=== PATIENT | female | born 1975 | race Caucasian/White ===

== ENCOUNTER 2017-07-01 18:18 | Emergency (ER) | payer OTHER, SELFPAY | END 2017-07-01 19:57 | disposition home or self-care (01) | PROVIDERS: Emergency Provider Nurse Practitioner; Family Provider Family Medicine Geriatric Medicine; Visit Provider Nurse Practitioner | DX: J06.9 Acute upper respiratory infection, unspecified (principal); Z79.899 Other long term (current) drug therapy; Z88.0 Allergy status to penicillin; Z88.2 Allergy status to sulfonamides | CPT/HCPCS: 87804; 99201 ==

== ENCOUNTER 2017-09-15 18:32 | Emergency (ER) | payer OTHER, SELFPAY ==
[2017-09-15 18:56] VITALS: BP 140/84; PULSE 79; RESP 20; TEMP 36.6; O2SAT 97; BMI 37.5
--- NOTE | 2017-09-15 19:50 | HMH.EDUTC ---
[facility] [place] Impression: Elbow pain, right Disposition: Home, Self-Care Condition on Discharge: Good Instructions: DI for Acute Pain -- Adult Additional Instructions: Increase fluids Rest Ice for 20 minutes remove heat for 20 minutes removed may repeat as necessary Tylenol or ibuprofen for pain Symptoms do not improve or get worse return or be seen in the ER Follow-up with primary care for further workup Prescriptions: predniSONE [Prednisone 20mg Tab] 20 mg PO DAILY 5 Days #10 tab Referrals: Deyanira Shafer [Primary Care Provider] - Time of Disposition: 19:57 (prednisone is p.o. twice daily 5 days) Medical Decision Making - Mike Inquiry Pt receiving controlled substance: No Vital Signs: 09/15/17 18:56 Temperature 97.9 F Temperature Source Temporal Artery Scan Pulse Rate [Brachial] 79 Respiratory Rate 20 Blood Pressure [Right Arm] 140/84 Blood Pressure Mean [Right Arm] 102 Blood Pressure Source [Right Arm] Automatic Cuff Blood Pressure Position [Right Arm] Sitting 02 Sat by Pulse Oximetry 97 Oxygen Delivery Method Room Air [facility] [place] - General Chief complaint: PAIN Stated complaint: r arm pain Time Seen by Provider: 09/15/17 19:50 Mode of Arrival: Ambulatory Source of Information: Patient Limitations: No Limitations Description of Symptoms (Recalled from Triage Doc. by RN): RT ARM PAIN, SWOLLEN AND TENDER X 1 WEEK HEENT Symptoms (Recalled from RN notes): No Resp Symptoms (Recalled from RN notes): No Skin Symptoms (Recalled from RN notes): No MS Symptoms (Recalled from RN notes): Yes Functional Status (Recalled from RN notes): NA - History of Present Illness Provider Complaint: 42-year-old female presents today for right elbow pain. Patient states had a massage pain increased. Patient states movement increases pain. And tender to palpate joint.denies fever - Related Data Home Medications Medication Instructions Recorded Confirmed Levothyroxine Sodium 150 mcg PO DAILY 09/15/17 09/15/17 [Levothyroxine 150mcg (0.15mg) Tab] Sertraline HCl [Zoloft 50mg tablet] 50 mg PO DAILY 09/15/17 09/15/17 raNITIdine HCl [Zantac] 150 mg PO DAILY 09/15/17 09/15/17 Previous Rx's Medication Instructions Recorded predniSONE [Prednisone 20mg 20 mg PO DAILY 5 Days #10 tab 09/15/17 Tab] Allergies Allergy/AdvReac Type Severity Reaction Status Date / Time Penicillins Allergy Unknown RASH/DIFFICULTY Unverified 06/24/17 14:28 BREATHING Sulfa (Sulfonamide Allergy Unknown RASH/DIFFICULTY Unverified 06/24/17 14:28 Antibiotics) BREATHING - Worker's Comp Is this a Worker's Comp case?: No H History I have reviewed the patient's past medical history: Yes - Social History Alcohol Intake: never - Psychiatric History Expresses thoughts of harming self/others: None Suicide Plan Description: No Plan ROS Obtained: Yes All systems reviewed & no additional complaints - Constitutional Constitutional: Reports system reviewed and no additional complaints, except as docu, Denies chills, Denies fever(s), Denies weakness - Eyes Eyes: Reports system reviewed and no additional complaints, except as docu - ENT Ears, Nose, Mouth, and Throat: Reports system reviewed and no additional complaints, except as docu - Cardiovascular Cardiovascular: Reports system reviewed and no additional complaints, except as docu - Respiratory Respiratory: Yes system reviewed and no additional complaints, except as docu - Gastrointestinal Gastrointestingal: Reports: system reviewed and no additional complaints, except as docu - Musculoskeletal Musculoskeletal: Reports system reviewed and no additional complaints, except as docu, Reports joint pain, Reports limited range of motion - Integumentary/Breasts Skin/Breast: Reports system reviewed and no additional complaints, except as docu - Neurologic Neurologic: Reports system reviewed and no additional complaints, except as doc
--- NOTE | 2017-09-15 19:53 | ED_ITS ---
[facility] Disposition Clinical Impression: Elbow pain, right Disposition: Home, Self-Care Condition on Discharge: Good Instructions: DI for Acute Pain -- Adult Additional Instructions: Increase fluids Rest Ice for 20 minutes remove heat for 20 minutes removed may repeat as necessary Tylenol or ibuprofen for pain Symptoms do not improve or get worse return or be seen in the ER Follow-up with primary care for further workup Prescriptions: predniSONE [Prednisone 20mg Tab] 20 mg PO DAILY 5 Days #10 tab Referrals: Deyanira Shafer [Primary Care Provider] - Time of Disposition: 19:57 (prednisone is p.o. twice daily 5 days) Medical Decision Making - Mike Inquiry Pt receiving controlled substance: No Vital Signs: 09/15/17 18:56 Temperature 97.9 F Temperature Source Temporal Artery Scan Pulse Rate [Brachial] 79 Respiratory Rate 20 Blood Pressure [Right Arm] 140/84 Blood Pressure Mean [Right Arm] 102 Blood Pressure Source [Right Arm] Automatic Cuff Blood Pressure Position [Right Arm] Sitting 02 Sat by Pulse Oximetry 97 Oxygen Delivery Method Room Air [facility] HPI - General Chief complaint: PAIN Stated complaint: r arm pain Time Seen by Provider: 09/15/17 19:50 Mode of Arrival: Ambulatory Source of Information: Patient Limitations: No Limitations Description of Symptoms (Recalled from Triage Doc. by RN): RT ARM PAIN, SWOLLEN AND TENDER X 1 WEEK HEENT Symptoms (Recalled from RN notes): No Resp Symptoms (Recalled from RN notes): No Skin Symptoms (Recalled from RN notes): No MS Symptoms (Recalled from RN notes): Yes Functional Status (Recalled from RN notes): NA - History of Present Illness Provider Complaint: 42-year-old female presents today for right elbow pain. Patient states had a massage pain increased. Patient states movement increases pain. And tender to palpate joint.denies fever - Related Data Home Medications Medication Instructions Recorded Confirmed Levothyroxine Sodium 150 mcg PO DAILY 09/15/17 09/15/17 [Levothyroxine 150mcg (0.15mg) Tab] Sertraline HCl [Zoloft 50mg tablet] 50 mg PO DAILY 09/15/17 09/15/17 raNITIdine HCl [Zantac] 150 mg PO DAILY 09/15/17 09/15/17 Previous Rx's Medication Instructions Recorded predniSONE [Prednisone 20mg 20 mg PO DAILY 5 Days #10 tab 09/15/17 Tab] Allergies Allergy/AdvReac Type Severity Reaction Status Date / Time Penicillins Allergy Unknown RASH/DIFFICULTY Unverified 06/24/17 14:28 BREATHING Sulfa (Sulfonamide Allergy Unknown RASH/DIFFICULTY Unverified 06/24/17 14:28 Antibiotics) BREATHING - Worker's Comp Is this a Worker's Comp case?: No [facility] History I have reviewed the patient's past medical history: Yes - Social History Alcohol Intake: never - Psychiatric History Expresses thoughts of harming self/others: None Suicide Plan Description: No Plan ROS Obtained: Yes All systems reviewed & no additional complaints - Constitutional Constitutional: Reports system reviewed and no additional complaints, except as docu, Denies chills, Denies fever(s), Denies weakness - Eyes Eyes: Reports system reviewed and no additional complaints, except as docu - ENT Ears, Nose, Mouth, and Throat: Reports system reviewed and no additional complaints, except as docu
[2017-09-15 19:57] VITALS: BP 140/84; PULSE 79; RESP 20; TEMP 36.6; O2SAT 97
== END 2017-09-15 19:58 | disposition home or self-care (01) ==
PROVIDERS: Emergency Provider Nurse Practitioner Family; Family Provider Family Medicine Geriatric Medicine; PCP Family Medicine Geriatric Medicine
DX: M25.521 Pain in right elbow (principal)
CPT/HCPCS: 99202

== ENCOUNTER → 2018-04-09 10:20 | Outpatient (CLI) | payer OTHER, SELFPAY ==
[2018-04-09 11:56] LABS: Basophils % 0.5 % (0.1-2.0); Eosinophils # 0.1 K/mm3 (0.0-0.4); Eosinophils % 1.6 % (0.1-12.0); Hematocrit 40.4 % (37.0-47.0); Hemoglobin 13.2 g/dL (12.2-16.2); Lymphocytes # 2.6 K/mm3 (0.7-4.5); Mean Corpuscular HGB Conc 32.8 g/dL (31.8-35.4); Mean Corpuscular Hemoglobin 26.9 pg (27.0-31.2); Mean Corpuscular Volume 82.1 fl (81-99); Mean Platelet Volume 6.7 fl (7.4-10.4); Monocytes # 0.3 K/mm3 (0.1-1.0); Monocytes % 3.3 % (1.7-9.3); Neutrophils # 5.1 K/mm3 (1.8-7.8); Neutrophils % 62.7 % (37.0-80.0); Platelet Count 354 K/mm3 (142-424); Red Blood Count 4.92 M/mm3 (4.20-5.40); White Blood Count 8.2 K/mm3 (4.8-10.8)
[2018-04-09 12:26] LABS: Alanine Aminotransferase 31 U/L (12-78); Albumin Level 3.5 gm/dL (3.4-5.0); Albumin/Globulin Ratio 1.1 (1.1-1.8); Alkaline Phosphatase 109 U/L (46-116); Anion Gap 12.2 mEq/L (5-15); Aspartate Amino Transferase 14 U/L (15-37); Bilirubin,Total 0.3 mg/dL (0.2-1.0); Blood Urea Nitrogen 7 mg/dL (7-18); Calcium 8.8 mg/dL (8.5-10.1); Carbon Dioxide 29 mmol/L (21.0-32.0); Chloride 104 mmol/L (98-107); Cholesterol 158 mg/dL (140-200); Creatinine,Serum 0.59 mg/dL (0.55-1.02); Estimated Glomerular Filt Rate 111 ml/min (>60); Ferritin 47 ng/mL (8-388); Free Thyroxine Index 3.9 ug/dL (5.93-13.13); GFR (African American) 135 ML/MIN (>60); Globulin 3.3 gm/dl (1.3-3.2); Glucose 99 mg/dL (74-106); HDL Cholesterol 40 mg/dL (29-89); LDL Cholesterol 88 mg/dL (0-130); Potassium 4.2 mmoL/L (3.5-5.1); Sodium 141 mmol/L (136-145); T4 (Thyroxine) 11.9 ug/dl (4.7-13.3); Thyroid Stimulating Hormone 0.76 uIU/ml (0.358-3.740); Total Protein,Serum 6.8 gm/dL (6.4-8.2); Triglycerides 152 mg/dL (30-200); Triiodothryronine (T3) Uptake 33 % (31-39); VLDL Cholesterol 30 mg/dL (0-40)
[2018-04-09 17:15] LABS: Erythrocyte Sedimentation Rate 20 mm/hr (0-20)
[2018-04-10 08:28] LABS: Iron 56 ug/dL (27-159); UIBC 295 ug/dL (131-425)
[2018-04-10 17:28] LABS: Antinuclear Antibodies, IFA Negative (.); Iron Saturation 16 % (15-55); Vitamin B12 360 pg/mL (232-1245); Vitamin D 25 Hydroxy 15.7 ng/mL (30.0-100.0)
== END ==
PROVIDERS: PCP Nurse Practitioner Family; Visit Provider Nurse Practitioner Family
DX: Z00.00 Encounter for general adult medical examination without abnormal findings (principal); R53.82 Chronic fatigue, unspecified; M25.50 Pain in unspecified joint; E03.9 Hypothyroidism, unspecified
CPT/HCPCS: 36415; 80053; 80061; 82607; 82652; 82728; 83540; 83550; 84436; 84443; 84479; 85025; 85651; 86038

== ENCOUNTER → 2018-04-23 16:54 | Outpatient (CLI) | payer OTHER, SELFPAY ==
--- NOTE | 2018-04-23 | MM_ITS ---
MM Dig screening mamm BI w/CAD ORDERING PHYSICIAN : Esme Samano PATIENT AGE: 43 years GENDER: Female COMPARISON: Bilateral mammogram May 2016, June left breast. INDICATION: ITS.REASON: SCREENING no hormones. No new complaints. Previous percutaneous needle biopsy left breast, deep inferior lateral left breast. Family history. Patient aunt with breast cancer postmenopausal TECHNIQUE: Standard CC on and MLO images were obtained. R2 CAD reviewed. FINDINGS: Moderate dense heterogeneous breast .., With mild asymmetry. Mammography slightly limited and breast of this character no significant new findings. No suspicious dominant mass nor suspicious calcifications either breast RIGHT BREAST stable :The heterogeneous pattern the right is similar to previous studies dating back to 2016. No discrete or significant new findings LEFT BREAST:No significant new findings. Follow-up in one year Areas of density previously seen appear stable. Specifically area labeled Y at the deep lateral left breast unchanged. 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 No additional new findings otherwise.. There are actually 2 small metallic markers at the lateral inferior left breast from previous procedures IMPRESSION: No suspicious nor significant appearing new findings.. Bilateral follow-up in one year recommended-. Annual follow-up Should be emphasized/encouraged Sites of Previous percutaneous needle biopsy left breast noted BI-RADS Category: 2 Benign Finding(s) RECOMMENDED FOLLOW-UP: 1YR 1 YEAR FOLLOW-UP (A letter has been sent to the patient regarding results of the study.)
== END ==
PROVIDERS: PCP Nurse Practitioner Family; Visit Provider Nurse Practitioner Family
DX: Z12.31 Encounter for screening mammogram for malignant neoplasm of breast (principal)
CPT/HCPCS: 77067

== ENCOUNTER → 2018-11-27 16:55 | Outpatient (CLI) | payer BC, SELFPAY ==
[2018-11-27 19:24] LABS: Alanine Aminotransferase 32 U/L (12-78); Albumin Level 3.6 gm/dL (3.4-5.0); Albumin/Globulin Ratio 1.1 (1.1-1.8); Alkaline Phosphatase 117 U/L (46-116); Anion Gap 13.9 mEq/L (5-15); Aspartate Amino Transferase 10 U/L (15-37); Bilirubin,Total 0.3 mg/dL (0.2-1.0); Blood Urea Nitrogen 12 mg/dL (7-18); Calcium 8.9 mg/dL (8.5-10.1); Carbon Dioxide 27 mmol/L (21.0-32.0); Chloride 104 mmol/L (98-107); Estimated Glomerular Filt Rate 91 ml/min (>60); Free Thyroxine Index 3.4 ug/dL (5.93-13.13); GFR (African American) 111 ML/MIN (>60); Globulin 3.2 gm/dl (1.3-3.2); Glucose 124 mg/dL (74-106); Potassium 3.9 mmoL/L (3.5-5.1); Sodium 141 mmol/L (136-145); T4 (Thyroxine) 11.2 ug/dl (4.7-13.3); Thyroid Stimulating Hormone 0.63 uIU/ml (0.358-3.740); Total Protein,Serum 6.8 gm/dL (6.4-8.2); Triiodothryronine (T3) Uptake 30 % (31-39)
== END ==
PROVIDERS: Visit Provider Nurse Practitioner Family
DX: E03.9 Hypothyroidism, unspecified (principal); E55.9 Vitamin D deficiency, unspecified
CPT/HCPCS: 36415; 80053; 82652; 84436; 84443; 84479

== ENCOUNTER → 2019-05-28 10:52 | Outpatient (CLI) | payer BC, SELFPAY ==
--- NOTE | 2019-05-28 10:53 | MR_ITS ---
PROCEDURE: MR SHOULDER LT WO CON CLINICAL INDICATION: evaluate for rotator cuff tear Fall with injury and pain with limited range of motion COMPARISON: XR SHOULDER LT MIN 2V from 05/08/2019 TECHNIQUE: Routine multiplanar multi echo sequences are performed without gadolinium enhancement. FINDINGS: There is subacromial stenosis with a low-lying acromion and a small spur along the inferior aspect of the distal chromium. There is mild hypertrophy of the acromioclavicular joint. The supraspinatus tendon is intact with some mild thickening distally and slight increase in T2 signal consistent with mild tendinopathy/tendinosis. The infraspinatus, subscapularis, and teres minor tendons are intact. Bicipital tendon is in place. There appears to be a SLAP tear of the anterior glenoid labrum. IMPRESSION: 1. SLAP tear of the anterior glenoid labrum suspected. This may be confirmed with direct or indirect MR arthrography if clinical findings are indeterminate. 2. No evidence of rotator cuff tear. 3. 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
== END ==
PROVIDERS: PCP Nurse Practitioner Family; Visit Provider Orthopaedic Surgery
DX: S49.92XA Unspecified injury of left shoulder and upper arm, initial encounter (principal)
CPT/HCPCS: 73221

== ENCOUNTER 2019-07-12 14:07 | Outpatient (RCR) | payer BC, SELFPAY ==
--- NOTE | 2019-07-12 15:01 | HMH.PTOPEV ---
PT Outpatient Evaluation Rehab PT Outpatient Evaluation Start: 07/12/19 14:42 Freq: Status: Active Protocol: Document 07/12/19 14:42 LENNOX (Rec: 07/12/19 15:01 LENNOX [id number]) Electronically Signed By Vic Dillon PT 07/12/19 14:42 Outpatient Therapy Subjective History Subjective History This is the initial Physical Therapy evaluation for Izzy Amato. Pt is a 44 y/o female referred to PT for c/o L shoulder pain. Pt reports ~ 2 months ago she fell in the kitchen. Pt does not remember if she tried to catch herself or just landed on LUE, bit had pain afterwards. Pt reports she had ortho visit and MRI which showed SLAP tear and RTC dysfxn. Chief Complaint Pain,Stiff,Weakness Symptom Type Ache,Throb,Sharp,Stabbing Symptoms Relieved By Rest/Positioning,Ice,OTC Meds Symptoms Aggravated By Physical Activity,Lifting Prior Functional Limitations None Current Functional Limitations Reaching,Lifting Symptom Description Constant but Variable Level of pain today (0-10) 5 Pain scale - at its best (0-10) 4 Pain scale - at its worst (0-10) 9 Shoulder/Elbow Eval Shoulder Objective Measurements Palpation Tenderness tenderness shoulder exam standard left tenderness over the bicipital tendon left shoulder exam standard tenderness over the SA bursa shoulder left exam standard Shoulder Palpation Findings Tenderness Shoulder ROM Left Shoulder ROM Limitations Muscle Weakness,Pain Shoulder Abduction Active Range of 85 Motion (degrees) Shoulder Flexion Active Range of Motion 90 (degrees) Query Text: Shoulder External Rotation Active Range 35 of Motion (degrees) pain with active ROM shoulder exam left standard pain with passive ROM shoulder exam left standard decreased ROM shoulder exam standard left Right full ROM shoulder exam standard right Shoulder MMT Left Anterior Deltoid Strength Grade 3- Fair- Shoulder Abduction Strength Grade 3- Fair- Shoulder Flexion Strength Grade 3- Fair- Shoulder External Rotation Strength 3- Fair- Grade Shoulder Strength Patient Testing Sitting Position Shoulder Special Tests impingement sign present shoulder exam left standard Shoulder Cross-Over Impingement Test Positive Left
== END 2019-07-12 14:10 | disposition home or self-care (01) ==
LOC: PT 14:07
PROVIDERS: PCP Nurse Practitioner Family; Visit Provider Orthopaedic Surgery
DX: M25.512 Pain in left shoulder (principal)
CPT/HCPCS: 97110; 97163

== ENCOUNTER → 2019-08-06 14:27 | Outpatient (CLI) | payer BC, SELFPAY ==
--- NOTE | 2019-08-06 14:37 | XR_ITS ---
PROCEDURE: XR CHEST 2V CLINICAL HISTORY: COUGH COMPARISON: CXR CHEST(2 VIEWS-NOT PORTABLE) from 04/16/2014 CXR CHEST(2 VIEWS-NOT PORTABLE) from 10/18/2014 CXR CHEST(2 VIEWS-NOT PORTABLE) from 02/10/[address] CHEST W/ CONTRAST from 04/28/2015 FINDINGS: The cardiomediastinal silhouette and pulmonary vascularity are within normal limits. The lungs are clear without infiltrates, suspicious nodules, or pleural effusions. No acute bony abnormalities. IMPRESSION: No acute findings. Dictated by: Emeterio Navarro MD 08/06/2019 17:04 Electronically signed by Emeterio Navarro MD in [place] 08/06/2019 17:04
--- NOTE | 2019-08-06 15:06 | ECG_ITS ---
APPROVED REPORT Exam: Resting ECG HR:91 bpm ECG Measurements Heart Rate 91 AXES NJ 138 P 55 QRSd 88 QRS 92 QT 358 T 58 QTc 440 <Conclusion> Normal sinus rhythm Rightward axis Abnormal ECG Electronically signed by : John Farrell, 08/06/2019 15:47:27
[2019-08-06 15:26] LABS: Basophils # 0.1 K/mm3 (0-0.2); Basophils % 0.7 % (0.1-2.0); Eosinophils # 0.4 K/mm3 (0.0-0.4); Eosinophils % 3.1 % (0.1-12.0); Hematocrit 40.5 % (37.0-47.0); Hemoglobin 12.9 g/dL (12.2-16.2); Lymphocytes % 34.4 % (10-50); Mean Corpuscular HGB Conc 31.8 g/dL (31.8-35.4); Mean Corpuscular Hemoglobin 26.5 pg (27.0-31.2); Mean Corpuscular Volume 83.4 fl (81-99); Monocytes # 0.4 K/mm3 (0.1-1.0); Neutrophils # 6.8 K/mm3 (1.8-7.8); Neutrophils % 58.8 % (37.0-80.0); Platelet Count 419 K/mm3 (142-424); Red Blood Count 4.86 M/mm3 (4.20-5.40); White Blood Count 11.6 K/mm3 (4.8-10.8)
[2019-08-06 19:40] LABS: Alanine Aminotransferase 35 U/L (12-78); Albumin Level 3.7 gm/dL (3.4-5.0); Albumin/Globulin Ratio 1.2 (1.1-1.8); Alkaline Phosphatase 108 U/L (46-116); Anion Gap 14.3 mEq/L (5-15); Aspartate Amino Transferase 20 U/L (15-37); Bilirubin,Total 0.2 mg/dL (0.2-1.0); Blood Urea Nitrogen 9 mg/dL (7-18); Calcium 8.7 mg/dL (8.5-10.1); Carbon Dioxide 29 mmol/L (21.0-32.0); Chloride 103 mmol/L (98-107); Creatinine,Serum 0.73 mg/dL (0.55-1.02); Estimated Glomerular Filt Rate 87 ml/min (>60); GFR (African American) 105 ML/MIN (>60); Glucose 93 mg/dL (74-106); Potassium 4.3 mmoL/L (3.5-5.1); Sodium 142 mmol/L (136-145); Total Protein,Serum 6.7 gm/dL (6.4-8.2)
== END ==
PROVIDERS: PCP Nurse Practitioner Family; Visit Provider Orthopaedic Surgery
DX: Z01.818 Encounter for other preprocedural examination (principal); M75.42 Impingement syndrome of left shoulder
CPT/HCPCS: 36415; 71046; 80053; 85025; 93005

== ENCOUNTER → 2019-08-11 12:51 | Outpatient (CLI) | payer BC, SELFPAY ==
--- NOTE | 2019-08-11 13:00 | MM_ITS ---
PROCEDURE: MM DIG SCREENING MAMM BI W/CAD CLINICAL INDICATION: SCREENING There is a history of breast cancer in the patient's aunt. There has been a previous biopsy left breast for benign disease. COMPARISON: NECKW CT SOFT TISSUE NECK W/CONTRAST from 08/24/2014 DMSB DIG MAMM-SCREEN PORSHA from 05/16/2016 DMDXUAVL DIG MAMM-DX UNI ADD VIEWS-LT from 06/03/2016 DMDXUL DIG MAMM-DX UNI-LT from 06/19/2016 SCBI MM Dig screening mamm BI w/CAD from 04/23/2018 TECHNIQUE: Standard CC and MLO images and 3D Tomosynthesis was obtained. R2 CAD reviewed. FINDINGS: Scattered fibroglandular densities are seen throughout both breasts. There is a biopsy clip inner quadrant left breast with a small density adjacent to the biopsy clip likely representing post biopsy scarring. There is a stable benign-appearing oval density just deep to the nipple left breast. There is a stable benign-appearing nodular density with smooth borders deep within the right breast inner quadrant. Ray images are helpful excluding any suspicious lesion in either breast. There are no suspicious microcalcifications. IMPRESSION: Moderate slightly heterogenic breast density with no suspicious lesions seen BI-RAD Category: 2 Benign Finding(s) FOLLOW-UP: 1YR 1 Year Follow-up (A letter has been sent to the patient regarding results of the study.) Dictated by: Dr. Jaden Traylor MD 08/12/2019 16:[address] Jaden Traylor MD in [place] 08/12/2019 16:32
== END ==
PROVIDERS: PCP Nurse Practitioner Family; Visit Provider Nurse Practitioner Family
DX: Z12.31 Encounter for screening mammogram for malignant neoplasm of breast (principal)
CPT/HCPCS: 77063; 77067

== ENCOUNTER → 2019-11-10 10:51 | Outpatient (CLI) | payer BC, SELFPAY ==
--- NOTE | 2019-11-10 10:55 | XR_ITS ---
PROCEDURE: XR SHOULDER LT MIN 2V CLINICAL INDICATION: sp LT shoulder sx, dos 08/16/2019 Follow-up surgery COMPARISON: XR SHOULDER LT MIN 2V from 05/08/2019 MR SHOULDER LT WO CON from 05/28/2019 FINDINGS: There has been osteotomy the distal aspect of the clavicle. There is good alignment. Lucency is present in the proximal aspect of the humerus consistent with bicipital transfer surgery. No acute fracture. IMPRESSION: Postsurgical changes Dictated by: Emeterio Navarro MD 11/10/2019 18:49 Electronically signed by Emeterio Navarro MD in [place] 11/10/2019 18:49
== END ==
PROVIDERS: PCP Nurse Practitioner Family; Visit Provider Orthopaedic Surgery
DX: Z09 Encounter for follow-up examination after completed treatment for conditions other than malignant neoplasm (principal); M25.512 Pain in left shoulder
CPT/HCPCS: 73030

== ENCOUNTER 2019-11-12 15:00 | Outpatient (RCR) | payer BC, SELFPAY ==
--- NOTE | 2019-10-25 08:44 | HMH.PTOPEV ---
PT Outpatient Evaluation Rehab PT Outpatient Evaluation Start: 10/25/19 08:12 Freq: Status: Active Protocol: Document 10/25/19 08:16 HOLLY (Rec: 10/25/19 08:44 HOLLY [id number]) Electronically Signed By Azeem Keith, PT 10/25/19 08:16 Outpatient Therapy Subjective History Subjective History Pt presents s/p L SH SAD, GH debridement, DCE, biceps tenodesis sx. on 08/16/19. Pt reports initial injury occurred d/t fall at home in Late . Pt reports L SH is progressing slowly w/ROM and strength, however, 'it's still very sore, especially in the front and on top'. Chief Complaint Pain,Stiff,Swelling,Weakness Symptom Type Ache,Sharp,Dull Symptoms Relieved By Rest/Positioning,Heat,Ice,OTC Meds Symptoms Aggravated By Physical Activity,Lifting Prior Functional Limitations Reaching,Lifting,Housework Current Functional Limitations Reaching,Lifting,Housework Symptom Description Constant but Variable Level of pain today (0-10) 5 Pain scale - at its best (0-10) 4 Pain scale - at its worst (0-10) 8 Shoulder/Elbow Eval Shoulder Objective Measurements Palpation Tenderness tenderness shoulder exam standard left tenderness over the bicipital tendon left shoulder exam standard tenderness over the SA bursa shoulder left exam standard Shoulder Palpation Findings Tenderness,Trigger Point, Muscle Guarding Shoulder Palpation Overall Comment 3/4 Posture Shoulder Posture Standing Position (L) Rounded,(R) Rounded Scapula Posture Sitting Position (L) Protracted,(R) Protracted Scapular Posture Standing Position (L) Protracted,(R) Protracted Flexibilty Deficits Upper Trapezius Muscle Length (L) Moderate Tightness Shoulder ROM Left Shoulder Abduction Active Range of 0-72 Motion (degrees) Shoulder Abduction Passive Range of 0-95 Motion (degrees) Shoulder Flexion Active Range of Motion 0-98 (degrees) Query Text: Shoulder Flexion Passive Range of Motion 0-100 (degrees) Shoulder External Rotation Passive Range 0-60 of Motion (degrees) Shoulder Internal Rotation Passive Range 0-70 of Motion (degrees) Shoulder MMT Lower Trapezius Strength Grade 4- Good- Middle Trapezius Strength Grade 4- Good- Upper Trapezius/Levator Scapulae 4 Good Shoulder Abduction Strength Grade 3- Fair- Shoulder Flexion Strength Grade 3- Fair- Shoulder External Rotation Strength 3+
== END 2019-11-12 15:05 | disposition home or self-care (01) ==
LOC: PT 15:00
PROVIDERS: PCP Nurse Practitioner Family; Visit Provider Orthopaedic Surgery
DX: M25.512 Pain in left shoulder (principal); M75.42 Impingement syndrome of left shoulder; S43.432D Superior glenoid labrum lesion of left shoulder, subsequent encounter
CPT/HCPCS: 97010; 97014; 97033; 97110; 97163; G0283

== ENCOUNTER → 2019-12-22 11:45 | Outpatient (CLI) | payer BC, SELFPAY ==
[2019-12-22 12:12] LABS: Basophils # 0.1 K/mm3 (0-0.2); Basophils % 0.4 % (0.1-2.0); Eosinophils # 0.2 K/mm3 (0.0-0.4); Eosinophils % 1.4 % (0.1-12.0); Hematocrit 39.1 % (37.0-47.0); Hemoglobin 13.6 g/dL (12.2-16.2); Lymphocytes # 3.2 K/mm3 (0.7-4.5); Lymphocytes % 29.2 % (10-50); Mean Corpuscular HGB Conc 34.8 g/dL (31.8-35.4); Mean Corpuscular Hemoglobin 28.3 pg (27.0-31.2); Mean Corpuscular Volume 81.4 fl (81-99); Mean Platelet Volume 7.2 fl (7.4-10.4); Monocytes # 0.3 K/mm3 (0.1-1.0); Monocytes % 2.7 % (1.7-9.3); Neutrophils # 7.3 K/mm3 (1.8-7.8); Neutrophils % 66.3 % (37.0-80.0); Platelet Count 371 K/mm3 (142-424); Red Cell Distribution Width 14.2 % (11.5-17.5)
[2019-12-22 13:24] LABS: Alanine Aminotransferase 22 U/L (12-78); Albumin Level 4.5 g/dl (3.5-5.0); Albumin/Globulin Ratio 1.5 (1.1-1.8); Alkaline Phosphatase 121 U/L (38-126); Anion Gap 14.3 mEq/L (5-15); Aspartate Amino Transferase 27 U/L (14-36); Bilirubin,Total 0.4 mg/dl (0.2-1.3); Blood Urea Nitrogen 8 mg/dl (7-17); Carbon Dioxide 30 mmol/L (22.0-30.0); Chloride 99 mmol/L (98-107); Estimated Glomerular Filt Rate 109 ml/min (>60); GFR (African American) 131 ML/MIN (>60); Glucose 118 mg/dl (74-100); Potassium 4.3 mmoL/L (3.5-5.1); Sodium 139 mmol/L (136-145); Total Protein,Serum 7.5 g/dl (6.3-8.2)
[2019-12-22 13:39] LABS: Free T4 (Free Thyroxine) 1.31 ng/dl (0.78-2.19)
[2019-12-22 13:53] LABS: Thyroid Stimulating Hormone 5.97 uIU/mL (0.465-4.68)
== END ==
PROVIDERS: Visit Provider Nurse Practitioner Family
DX: R53.82 Chronic fatigue, unspecified (principal); E03.9 Hypothyroidism, unspecified
CPT/HCPCS: 36415; 80053; 84439; 84443; 85025

== ENCOUNTER 2020-01-14 16:39 | Emergency (ER) | payer BC, SELFPAY ==
[2020-01-14 16:51] VITALS: BP 112/73; PULSE 111; RESP 16; TEMP 36.8; O2SAT 98; BMI 60.4
--- NOTE | 2020-01-14 17:12 | XR_ITS ---
PROCEDURE: XR SHOULDER LT MIN 2V CLINICAL INDICATION: PAIN COMPARISON: XR SHOULDER LT MIN 2V from 05/08/2019 MR SHOULDER LT WO CON from 05/28/2019 XR SHOULDER LT MIN 2V from 11/10/2019 FINDINGS: There are postsurgical changes present. There has been a prior osteotomy of the distal clavicle and there is a lucency in the proximal aspect of the humerus consistent with bicipital tendon transfer surgery. No acute fracture or dislocation is evident. There is some mild subacromial stenosis with some hypertrophic changes along the inferior aspect of the a chromium. IMPRESSION: Postsurgical changes with mild subacromial stenosis Dictated by: Emeterio Navarro MD 01/14/2020 17:35 Electronically signed by Emeterio Navarro MD in [place] 01/14/2020 17:35
[2020-01-14 17:38] VITALS: BP 112/73; PULSE 111; RESP 16; TEMP 36.8; O2SAT 98; BMI 60.5
--- NOTE | 2020-01-14 18:04 | HMH.EDUTC ---
[facility] [place] Disposition Clinical Impression: Shoulder pain Qualifiers: Chronicity: unspecified Laterality: left Qualified Code(s): M25.512 - Pain in left shoulder Disposition: Home, Self-Care Condition on Discharge: Good Instructions: DI for Chronic Pain -- Adult, Nabumetone, How to Use a Sling, How To Perform RICE (Rest, Ice, Compress, Elevate) Additional Instructions: *RICE, Rest the extremity, Ice 15-20 minutes 3-4 times daily, Compress- wear the carter wrap as discussed as much as possible to help reduce swelling and pain, Elevate the extremity when at rest *Carter wrap is for support and help control swelling, use it except in the shower. Be sure that is not to tight but not to loose either *Elevate when resting *Nabumetone as prescribed for pain an inflammation. If need something more can take Tylenol in between doses of Ibuprofen to help Immediately follow up with your family doctor for new or worsening of symptoms, or no noticeable improvement over the next 3-5 days Prescriptions: Nabumetone 750 mg PO BID PRN 5 Days #10 tab PRN Reason: Moderate Pain Transmission Status: Pending to [facility] #[id number] Referrals: Esme Samano APRN [Primary Care Provider] - As needed Time of Disposition: 18:29 Medical Decision Making - Mike Inquiry Pt receiving controlled substance: No Mike was queried for this patient: No Vital Signs: 01/14/20 16:51 01/14/20 17:38 Temperature 98.2 F 98.2 F Temperature Source Oral Oral Pulse Rate [Right Brachial] 111 H 111 H Respiratory Rate 16 16 Blood Pressure [Right Arm] 112/73 112/73 Blood Pressure Mean [Right Arm] 86 86 Blood Pressure Source [Right Arm] Automatic Cuff Automatic Cuff Blood Pressure Position [Right Arm] Sitting Sitting 02 Sat by Pulse Oximetry 98 98 Oxygen Delivery Method Room Air Room Air - Radiology Data #1 Image(s): Shoulder Image Reviewed: Yes I have reviewed radiologist's interpretation Postsurgical changes with mild subacromial stenosis - Physician Consults Physician Consulted: Juan Time: 18:20 Reason -: Orthopedic Eval/Care Comment/Response: Spoke with Dr Martinez and he agreed with treatment SoluMedrol injection and Nabutometone bid and have her follow up in the clinic as scheduled [facility] [place] HPI - General Stated complaint: possible pulled L shoulder muscle 4 months post op Time Seen by Provider: 01/14/20 18:04 Mode of Arrival: Ambulatory Source of Information: Patient Limitations: No Limitations Description of Symptoms (Recalled from Triage Doc. by RN): PT advises she is 4 months post op from left shoulder surgery. Advises that a couple of days ago she started having some pain. She called Dr. Martinez and advised they were unable to see her until next week. Advises she thinks she needs a x-ray to make sure everything is ok. HEENT Symptoms (Recalled from RN notes): No Resp Symptoms (Recalled from RN notes): No Skin Symptoms (Recalled from RN notes): No MS Symptoms (Recalled from RN notes): Yes Functional Status (Recalled from RN notes): WNL - History of Present Illness Provider Complaint: Patient state that she had surgery about 4mths ago and had tendon repair on her left shoulder area by Dr Martinez State that for the last couple of days she has been having pain in her left shoulder States that she doesnt recall doing anything to hurt the shoulder she was helping her son cook when pain started shooting down the shoulder when she would move or raise it State that she called Dr Martinez office and they talked to him and told her to [employer] and call office today if no improvement State that she waas still having pain today so she called the office and talked to someone and they told her that she probably needed an xray and they made appointment for week - Related Data Home Medications Medication Instructions Recorded Confirmed levothyroxine 150 mcg tablet 175 mcg PO DAILY tab 12/29/17 12/22/19 sertraline 100 mg tablet 100 mg PO DAILY 05/25/19
[2020-01-14 18:36] VITALS: BP 112/73; PULSE 111; RESP 16; TEMP 36.8; O2SAT 98
== END 2020-01-14 18:40 | disposition home or self-care (01) ==
PROVIDERS: Emergency Provider Nurse Practitioner; PCP Nurse Practitioner Family
DX: M25.512 Pain in left shoulder (principal); F41.8 Other specified anxiety disorders; K21.9 Gastro-esophageal reflux disease without esophagitis; E78.5 Hyperlipidemia, unspecified; E03.9 Hypothyroidism, unspecified; Z90.49 Acquired absence of other specified parts of digestive tract; Z90.79 Acquired absence of other genital organ(s)
CPT/HCPCS: 73030; 96372; 99202

== ENCOUNTER → 2020-03-23 10:20 | Outpatient (CLI) | payer BC, SELFPAY ==
[2020-03-23 10:56] LABS: Basophils % 0.4 % (0.1-2.0); Eosinophils # 0.2 K/mm3 (0.0-0.4); Eosinophils % 1.7 % (0.1-12.0); Hematocrit 40.1 % (37.0-47.0); Hemoglobin 13.7 g/dL (12.2-16.2); Lymphocytes # 3.1 K/mm3 (0.7-4.5); Lymphocytes % 29.2 % (10-50); Mean Corpuscular HGB Conc 34.2 g/dL (31.8-35.4); Mean Corpuscular Hemoglobin 28.6 pg (27.0-31.2); Mean Corpuscular Volume 83.7 fl (81-99); Mean Platelet Volume 7.2 fl (7.4-10.4); Monocytes # 0.3 K/mm3 (0.1-1.0); Monocytes % 2.8 % (1.7-9.3); Neutrophils # 6.9 K/mm3 (1.8-7.8); Neutrophils % 65.8 % (37.0-80.0); Platelet Count 344 K/mm3 (142-424); Red Blood Count 4.79 M/mm3 (4.20-5.40); White Blood Count 10.5 K/mm3 (4.8-10.8)
[2020-03-23 11:26] LABS: Alanine Aminotransferase 18 U/L (12-78); Albumin Level 4.1 g/dl (3.5-5.0); Albumin/Globulin Ratio 1.5 (1.1-1.8); Alkaline Phosphatase 111 U/L (38-126); Anion Gap 14.3 mEq/L (5-15); Aspartate Amino Transferase 22 U/L (14-36); Bilirubin,Total 0.4 mg/dl (0.2-1.3); Blood Urea Nitrogen 10 mg/dl (7-17); Calcium 9.3 mg/dl (8.4-10.2); Carbon Dioxide 28 mmol/L (22.0-30.0); Chloride 101 mmol/L (98-107); Estimated Glomerular Filt Rate 108 ml/min (>60); GFR (African American) 131 ML/MIN (>60); Globulin 2.7 g/dL (1.3-3.2); Glucose 114 mg/dl (74-100); Potassium 4.3 mmoL/L (3.5-5.1); Sodium 139 mmol/L (136-145); Total Protein,Serum 6.8 g/dl (6.3-8.2)
[2020-03-23 11:43] LABS: 25-OH Vitamin D, Total 32.8 ng/mL (30-100)
[2020-03-23 11:44] LABS: Free T4 (Free Thyroxine) 0.71 ng/dl (0.78-2.19)
[2020-03-23 11:58] LABS: Thyroid Stimulating Hormone 9.99 uIU/mL (0.465-4.68)
== END ==
PROVIDERS: Visit Provider Nurse Practitioner Family
DX: E03.9 Hypothyroidism, unspecified (principal); E55.9 Vitamin D deficiency, unspecified
CPT/HCPCS: 36415; 80053; 82306; 84439; 84443; 85025

== ENCOUNTER → 2020-06-26 17:24 | Outpatient (CLI) | payer BC, SELFPAY ==
[2020-06-26 19:15] LABS: Free T4 (Free Thyroxine) 1.28 ng/dl (0.78-2.19)
== END ==
PROVIDERS: Visit Provider Nurse Practitioner Family
DX: E03.9 Hypothyroidism, unspecified (principal)
CPT/HCPCS: 36415; 84439; 84443

== ENCOUNTER 2020-10-14 17:50 | Emergency (ER) | payer BC, SELFPAY ==
[2020-10-14 18:26] VITALS: RESP 14; O2SAT 97; BMI 38.3
--- NOTE | 2020-10-14 18:26 | HMH.EDUTC ---
[facility] Disposition Clinical Impression: Bronchitis Disposition: Home, Self-Care Condition on Discharge: Good Instructions: Acute Bronchitis Additional Instructions: start antibiotic tomorrow. Be sure to complete entire prescription even if feeling better Tylenol and ibuprofen as needed for pain or fever Humidifier/vaporizer/hot steamy shower Follow-up with primary care this week. Follow-up immediately in the ER of the [facility] for new or worsening symptoms or no noticeable improvement over the next 48-72 hours. Stop smoking Inhaler every 4-6 hours as needed. Should help open airways improved cough, wheezing, shortness of breath Lilliam Monson will not cause drowsiness to use at bedtime to help stop cough so that she can get some sleep Prescriptions: Fluticasone Propionate [Flonase 50mcg nasal spray 16gm] 1 spr NS DAILY 14 Days #1 bottle Prescription Printed Azithromycin [Zithromax 250mg tab] 250 mg PO DIRECTED #6 tab Prescription Printed Referrals: Esme Samano APRN [Primary Care Provider] - Time of Disposition: 18:30 Medical Decision Making - Mike Inquiry Pt receiving controlled substance: No Orders (Tests/Meds): ORDERS Category Date Time Status Covid-19 Nasal PCR ([facility]) Routine Lab 10/14/20 18:15 Received [facility] HPI - General Chief complaint: Urgent Treatment Center Stated complaint: cough sore throat headache Time Seen by Provider: 10/14/20 18:26 Mode of Arrival: Ambulatory Source of Information: Patient Limitations: No Limitations - History of Present Illness Provider Complaint: 45 yr old fmeale presnets for cough, headache,wheezing,nasal congestion and sore throat for 4 days. family wants her covid tested - Related Data Home Medications Medication Instructions Recorded Confirmed levothyroxine 150 mcg tablet 175 mcg PO DAILY tab 12/29/17 03/21/20 sertraline 100 mg tablet 100 mg PO DAILY 05/25/19 03/21/20 Previous Rx's Medication Instructions Recorded Nabumetone 750 mg PO BID PRN 5 Days #10 tab 01/14/20 Azithromycin [Zithromax 250mg 250 mg PO DIRECTED #6 tab 10/14/20 tab] Fluticasone Propionate [Flonase 1 spr NS DAILY 14 Days #1 bottle 10/14/20 50mcg nasal spray 16gm] Allergies Allergy/AdvReac Type Severity Reaction Status Date / Time Penicillins Allergy Unknown RASH/DIFFICULTY Verified 03/21/20 11:07 BREATHING Sulfa (Sulfonamide Allergy Unknown RASH/DIFFICULTY Verified 03/21/20 11:07 Antibiotics) BREATHING [facility] History - Hepatitis A Screen Attestation statement:: This patient has been screened for Hepatitis A risk factors. I have reviewed the patient's past medical history: Yes Medical History: Reports:: Anxiety, Cancer, Depression, Gastroesophageal Reflux Disease(GERD), Hyperlipidemia Denies:: Diabetes Mellitus Type 1, Diabetes Mellitus Type 2, Hypertension, Internal Pacemaker, MRSA, Seizures Other Medical History: Reports: Hypothyroidism. Denies: Blood Transfusion Reaction Comment: morbid obesity Laterality Cases: Left: Arthroscopy Shoulder, Right: Arthroscopy Knee Other Surgeries: Yes: Cholecystectomy, , Hysterectomy-Total, Thyroidectomy, Tubal Ligation, Other. No: Pacemaker Amputation: No Fractures: No - Social History Smoking Status: Never smoker Alcohol Intake: never Substance Use Type: denies use Occupational Status: other Housing: house Household Members: spouse - Psychiatric History Pschychiatric History:: Reports:: Anxiety, Depression Family Hx:: No significant family history ROS Obtained: Yes Systems reviewed as appropriate & no additional complaints - Constitutional Constitutional: Reports system reviewed and no additional complaints, except as docu, Denies body ache, Denies chills, Denies fever(s) - Eyes Eyes: Reports system reviewed and no additional complaints, except as docu, Denies blurry vision - ENT Ears, Nose, Mouth, and Throat: Reports system reviewed and no additional complaints, except
[2020-10-14 18:29] LABS: UTC Strep Screen (Rapid) Negative (Negative)
[2020-10-14 18:30] LABS: UTC Influenza A Antigen Negative (Negative)
[2020-10-14 18:31] LABS: UTC Influenza B Antigen Negative (Negative)
[2020-10-14 18:35] VITALS: BP 147/99; PULSE 92; RESP 14; TEMP 37.3; O2SAT 97
== END 2020-10-14 18:36 | disposition home or self-care (01) ==
PROVIDERS: Emergency Provider Nurse Practitioner Family; PCP Nurse Practitioner Family
DX: Z20.822 Contact with and (suspected) exposure to COVID-19 (principal); J20.9 Acute bronchitis, unspecified; K21.9 Gastro-esophageal reflux disease without esophagitis; E78.5 Hyperlipidemia, unspecified; E03.9 Hypothyroidism, unspecified; Z88.0 Allergy status to penicillin; Z88.2 Allergy status to sulfonamides
CPT/HCPCS: 87804; 87880; 99202; G0463; U0003

== ENCOUNTER 2021-01-11 19:09 | Emergency (ER) | payer BC, SELFPAY ==
[2021-01-11 19:10] VITALS: BP 122/74; PULSE 86; RESP 18; TEMP 37.1; O2SAT 97; BMI 39.7
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
[2021-01-11 20:12] VITALS: BP 120/72; PULSE 82; RESP 18; TEMP 37.1; O2SAT 97
== END 2021-01-11 20:13 | disposition home or self-care (01) ==
PROVIDERS: Emergency Provider Family Medicine; PCP Nurse Practitioner Family
DX: S05.01XA Injury of conjunctiva and corneal abrasion without foreign body, right eye, initial encounter (principal); W50.0XXA Accidental hit or strike by another person, initial encounter; Y92.019 Unspecified place in single-family (private) house as the place of occurrence of the external cause; E03.9 Hypothyroidism, unspecified; E78.5 Hyperlipidemia, unspecified; F41.8 Other specified anxiety disorders; K21.9 Gastro-esophageal reflux disease without esophagitis; Z88.0 Allergy status to penicillin; Z88.2 Allergy status to sulfonamides
CPT/HCPCS: 99281

== ENCOUNTER → 2021-06-10 08:46 | Outpatient (CLI) | payer BC, SELFPAY ==
[2021-06-10 09:04] LABS: Basophils # 0.1 K/mm3 (0-0.2); Basophils % 0.7 % (0.1-2.0); Eosinophils # 0.2 K/mm3 (0.0-0.4); Eosinophils % 2.3 % (0.1-12.0); Hematocrit 40.6 % (37.0-47.0); Hemoglobin 13.3 g/dL (12.2-16.2); Lymphocytes # 3.5 K/mm3 (0.7-4.5); Lymphocytes % 37.9 % (10-50); Mean Corpuscular HGB Conc 32.8 g/dL (31.8-35.4); Mean Corpuscular Hemoglobin 27.6 pg (27.0-31.2); Mean Corpuscular Volume 84.2 fl (81-99); Mean Platelet Volume 6.8 fl (7.4-10.4); Monocytes # 0.3 K/mm3 (0.1-1.0); Monocytes % 3.3 % (1.7-9.3); Neutrophils # 5.2 K/mm3 (1.8-7.8); Neutrophils % 55.8 % (37.0-80.0); Platelet Count 385 K/mm3 (142-424); Red Blood Count 4.82 M/mm3 (4.20-5.40); Red Cell Distribution Width 13.3 % (11.5-17.5); White Blood Count 9.2 K/mm3 (4.8-10.8)
[2021-06-10 09:21] LABS: Hemoglobin A1C 5.6 % (4.0-6.0)
[2021-06-10 09:41] LABS: Alanine Aminotransferase 25 U/L (12-78); Albumin/Globulin Ratio 1.5 (1.1-1.8); Alkaline Phosphatase 110 U/L (38-126); Anion Gap 9.1 mEq/L (5-15); Aspartate Amino Transferase 27 U/L (14-36); Bilirubin,Total 0.3 mg/dl (0.2-1.3); Blood Urea Nitrogen 10 mg/dl (7-17); Calcium 9.6 mg/dl (8.4-10.2); Carbon Dioxide 29 mmol/L (22.0-30.0); Chloride 104 mmol/L (98-107); Chol/HDL Ratio 4.5 (1-3.5); Cholesterol 186 mg/dl (140-200); Estimated Glomerular Filt Rate 108 ml/min (>60); GFR (African American) 130 ML/MIN (>60); Globulin 2.7 g/dL (1.3-3.2); Glucose 112 mg/dl (74-100); HDL Cholesterol 41 mg/dl (40-60); Potassium 4.1 mmoL/L (3.5-5.1); Sodium 138 mmol/L (136-145); Total Protein,Serum 6.7 g/dl (6.3-8.2); Triglycerides 232 mg/dl (30-150); VLDL Cholesterol 46 mg/dL (0-40)
[2021-06-10 09:53] LABS: Direct LDL Cholesterol 104.44 mg/dL (100-129)
[2021-06-10 09:58] LABS: Free T4 (Free Thyroxine) 1.77 ng/dl (0.78-2.19)
[2021-06-10 09:59] LABS: 25-OH Vitamin D, Total 28.4 ng/mL (30-100)
[2021-06-10 10:12] LABS: Thyroid Stimulating Hormone < 0.02 uIU/mL (0.465-4.68)
[2021-06-10 10:30] LABS: Vitamin B12 281 pg/mL (239-931)
== END ==
PROVIDERS: Visit Provider Nurse Practitioner Family
DX: E03.9 Hypothyroidism, unspecified (principal); R73.01 Impaired fasting glucose; R53.81 Other malaise; E55.9 Vitamin D deficiency, unspecified; Z83.2 Family history of diseases of the blood and blood-forming organs and certain disorders involving the immune mechanism
CPT/HCPCS: 36415; 80053; 80061; 81241; 82306; 82607; 83036; 84439; 84443; 85025

== ENCOUNTER → 2021-08-23 12:05 | Outpatient (CLI) | payer BC, SELFPAY ==
--- NOTE | 2021-08-23 12:09 | XR_ITS ---
FINAL REPORT CLINICAL HISTORY: COVID OUTPATIENT. SOB COMPARISON: August 06, 2019 FINDINGS: The heart size is normal. The mediastinum is normal. There is no focal infiltrate or edema. There are no pleural effusions. There is no pneumothorax. There is no osseous abnormality. IMPRESSION: No acute cardiopulmonary process Reviewed, Interpreted and Dictated by Daniel Eli III, MD Transcribed by Maximo Fisher Authenticated by Daniel Eli III, MD on 08/23/2021 01:27:57 PM [facility]
[2021-08-23 12:50] LABS: Basophils # 0.1 K/mm3 (0-0.2); Basophils % 0.5 % (0.1-2.0); Eosinophils # 0.1 K/mm3 (0.0-0.4); Eosinophils % 1.2 % (0.1-12.0); Hematocrit 42.5 % (37.0-47.0); Hemoglobin 14.9 g/dL (12.2-16.2); Lymphocytes # 3.1 K/mm3 (0.7-4.5); Lymphocytes % 35.5 % (10-50); Mean Corpuscular Hemoglobin 28.4 pg (27.0-31.2); Mean Corpuscular Volume 81.1 fl (81-99); Monocytes # 0.2 K/mm3 (0.1-1.0); Monocytes % 2.3 % (1.7-9.3); Neutrophils # 5.3 K/mm3 (1.8-7.8); Neutrophils % 60.4 % (37.0-80.0); Platelet Count 451 K/mm3 (142-424); Red Blood Count 5.24 M/mm3 (4.20-5.40); Red Cell Distribution Width 13.6 % (11.5-17.5); White Blood Count 8.8 K/mm3 (4.8-10.8)
[2021-08-23 13:20] LABS: D-Dimer 0.46 ug/mL (0.0-0.5)
[2021-08-23 13:54] LABS: Chloride 102 mmol/L (98-107); Potassium 3.9 mmoL/L (3.5-5.1); Sodium 136 mmol/L (136-145)
[2021-08-23 13:57] LABS: Alanine Aminotransferase 26 U/L (12-78); Albumin Level 4.4 g/dl (3.5-5.0); Albumin/Globulin Ratio 1.6 (1.1-1.8); Alkaline Phosphatase 120 U/L (38-126); Anion Gap 13.9 mEq/L (5-15); Aspartate Amino Transferase 29 U/L (14-36); Bilirubin,Total 0.5 mg/dl (0.2-1.3); Blood Urea Nitrogen 7 mg/dl (7-17); Calcium 8.7 mg/dl (8.4-10.2); Carbon Dioxide 24 mmol/L (22.0-30.0); Estimated Glomerular Filt Rate 108 ml/min (>60); GFR (African American) 130 ML/MIN (>60); Globulin 2.8 g/dL (1.3-3.2); Glucose 117 mg/dl (74-100); Total Protein,Serum 7.2 g/dl (6.3-8.2)
== END ==
PROVIDERS: PCP Nurse Practitioner Family; Visit Provider Nurse Practitioner Family
DX: U07.1 COVID-19 (principal); R06.02 Shortness of breath
CPT/HCPCS: 36415; 71045; 80053; 85025; 85378

== ENCOUNTER → 2021-10-29 16:17 | Outpatient (CLI) | payer BC, SELFPAY ==
--- NOTE | 2021-10-29 16:27 | XR_ITS ---
PROCEDURE INFORMATION: Exam: XR Sacrum and Coccyx, 2 or More Views Exam date and time: 10/29/2021 4:41 PM Age: 46 years old Clinical indication: Pain; Lumbago; With sciatica; Bilateral; Additional info: Low back pain at multiple sites TECHNIQUE: Imaging protocol: XR of the sacrum and coccyx, 2 or more views. COMPARISON: ABDPELWO CT abdomen pelvis wo con 11/28/2017 11:39 PM FINDINGS: Mild osteoarthritis in the left hip joint, manifested predominantly by decreased joint space and small marginal osteophyte formation. No significant osteoarthritis to the right hip joint. Mild degenerative changes of the bilateral sacroiliac joints. No acutely displaced fracture, dislocation, or aggressive osseous lesion. No acute soft tissue findings. IMPRESSION: 1. Mild left hip osteoarthritis. 2. No acute skeletal pathology or other discrete findings to explain the patient's symptoms.
== END ==
LOC: RAD 16:20
PROVIDERS: PCP Nurse Practitioner Family; Visit Provider Nurse Practitioner Family
DX: M54.50 Low back pain, unspecified (principal); M53.3 Sacrococcygeal disorders, not elsewhere classified
CPT/HCPCS: 72220

== ENCOUNTER 2021-11-26 10:46 | Emergency (ER) | payer BC, SELFPAY ==
[2021-11-26 11:50] VITALS: BP 121/85; PULSE 84; RESP 18; TEMP 36.8; O2SAT 95; BMI 39.7
--- NOTE | 2021-11-26 12:34 | HMH.EDUTC ---
[facility] Disposition Clinical Impression: Bronchitis Sinusitis Qualifiers: Sinusitis location: unspecified location Chronicity: unspecified Qualified Code(s): J32.9 - Chronic sinusitis, unspecified Disposition: Home, Self-Care Condition on Discharge: Good Instructions: Sinusitis, DI for Sinusitis Additional Instructions: ? Start antibiotic today. Be sure to complete entire prescription even if feeling better ? Monitor temp. Tylenol every 4 hours as needed and / or ibuprofen every 6 hours as needed ( As long as your primary care physician has told you that it ok to take both. For fever/aches/pains ER if no less than 101 despite Tylenol or Motrin ? Humidifier/vaporizer or hot steamy shower *Tessalon Perles will not cause drowsiness but use at bedtime to help stop cough so that you may get some rest. *Start steroid today. Helps with inflammation therefore, cough and wheezing. Follow directions on the package. Reviewed side effects. Patient reports taking them before. Follow up IMMEDIATELY for new or worsening of symptoms OR no noticeable improvement over the next 48-72 hours. 911 immediately for any life threatening symptoms such as chest pain or difficulty breathing Prescriptions: Albuterol Sulfate [Proventil-HFA 90mcg/puff Inh] 1 - 2 puffs IH Q6HP PRN #1 each PRN Reason: Shortness Of Breath Transmission Status: Pending to [facility] Benzonatate [Benzonatate 100mg cap] 100 mg PO Q8HP PRN #15 cap PRN Reason: Cough Transmission Status: Pending to [facility] methylPREDNISolone [Medrol 4mg tab] 4 mg PO DIRECTED #21 tab Transmission Status: Pending to [facility] Azithromycin [Z-Benntet 250mg Tab] 250 mg PO DIRECTED #6 tab Transmission Status: Pending to [facility] Referrals: Esme Samano APRN [Primary Care Provider] - As needed Time of Disposition: 12:41 Medical Decision Making - Mike Inquiry Pt receiving controlled substance: No Mike was queried for this patient: No Vital Signs: 11/26/21 11:50 Temperature 98.3 F Temperature Source Oral Pulse Rate [Right Brachial] 84 Respiratory Rate 18 Blood Pressure [Right Arm] 121/85 Blood Pressure Mean [Right Arm] 97 Blood Pressure Source [Right Arm] Automatic Cuff Blood Pressure Position [Right Arm] Sitting 02 Sat by Pulse Oximetry 95 Oxygen Delivery Method Room Air [facility] HPI - General Stated complaint: cough, congestion, back pain, h/a Time Seen by Provider: 11/26/21 12:34 Mode of Arrival: Ambulatory Source of Information: Patient Limitations: No Limitations Description of Symptoms (Recalled from Triage Doc. by RN): PATIENT C/O CONGESTION, FEVER, HEADACHE, CHEST CONGESTION, AND PRODUCTIVE COUGH WITH THICK MUCOUS HEENT Symptoms (Recalled from RN notes): Yes Resp Symptoms (Recalled from RN notes): No Skin Symptoms (Recalled from RN notes): No MS Symptoms (Recalled from RN notes): No Functional Status (Recalled from RN notes): WNL - History of Present Illness Provider Complaint: Patient states that she has been sick for well over a week States that she has been having cough, sinus pain and pressure, productive cough at times, and headache States that pressure behind her eyes has got worse over the last week States that she seen her PCP last week and thought it was a viral infection but she has continued to feel worse so she came in today - Related Data Home Medications Medication Instructions Recorded Confirmed Levothyroxine Sodium 175 mcg PO DAILY 11/26/21 11/26/21 [Levothyroxine 175mcg (0.175mg) Tab] Vortioxetine Hydrobromide 20 mg PO DAILY 11/26/21 11/26/21 [Trintellix] Previous Rx's Medication Instructions Recorded Albuterol Sulfate [Proventil-HFA 1 - 2 puffs IH Q6HP PRN #1 each 11/26/21 90mcg/puff Inh] Azithromycin [Z-Bennett 250mg Tab] 250 mg PO DIRECTED #6 tab 11/26/21 Benzonatate [Benzonatate 100mg 100 mg PO Q8HP PRN #15 cap 11/26/21 cap
[2021-11-26 12:45] VITALS: BP 121/85; PULSE 84; RESP 18; TEMP 36.8; O2SAT 95
== END 2021-11-26 12:55 | disposition home or self-care (01) ==
PROVIDERS: Emergency Provider Nurse Practitioner; PCP Nurse Practitioner Family
DX: J32.9 Chronic sinusitis, unspecified (principal); J20.9 Acute bronchitis, unspecified; F41.8 Other specified anxiety disorders; K21.9 Gastro-esophageal reflux disease without esophagitis; E78.5 Hyperlipidemia, unspecified
CPT/HCPCS: 99212; G0463

== ENCOUNTER 2021-12-07 14:30 | Outpatient (RCR) | payer BC, SELFPAY ==
--- NOTE | 2021-11-05 09:38 | HMH.PTOPEV ---
PT Outpatient Evaluation Rehab PT Outpatient Evaluation Start: 11/05/21 09:21 Freq: Status: Active Protocol: Document 11/05/21 09:24 HOLLY (Rec: 11/05/21 09:38 HOLLY [id number]) Electronically Signed By Azeem Keith, PT 11/05/21 09:24 Outpatient Therapy Subjective History Subjective History Pt reports h/o chronic LBP for ~10 yrs, excerbation over the last ~3-4weeks. Pt reports right sided LBP, progressed to RLE radicular s/s from hip to knee. Pt reports walking and stretching 'used to help, but it's not helping this time'. Chief Complaint Pain,Stiff,Paresthesia Symptom Type Ache,Sharp,Dull,Numbness, Tingling Symptoms Relieved By Rest/Positioning,Heat Symptoms Aggravated By Standing,Twisting,Walking Prior Functional Limitations Lifting,Housework,Walking Current Functional Limitations Lifting,Housework,Standing, Walking Symptom Description Constant but Variable Level of pain today (0-10) 8 Pain scale - at its best (0-10) 5 Pain scale - at its worst (0-10) 10 Lumbopelvic Eval Posture Thoracic Spine Posture Standing Position Neutral Lumbar Spine Posture Standing Position Flattened Assistive device Assistive Devices None / NA Gait Observation General Gait Pattern Observation Antalgic Gait Palapation tenderness left lumbar spinal tenderness Yes: 3/4 paraspinal tenderness Yes: 2/4 buttock tenderness Yes: 2/4 Lumbar/Sacral Palpation Findings Tenderness,Trigger Point, Muscle Guarding right lumbar spinal tenderness Yes: 3/4 paraspinal tenderness Yes: 3/4 buttock tenderness Yes: 3/4 Lumbar/Sacral Palpation Findings Tenderness,Trigger Point, Muscle Guarding Accessory Movement L-spine Vertebrae Accessory Movements Central P/A [place] that Elicit Symptoms L2 bilateral L3 bilateral L4 bilateral L5 bilateral S1 bilateral Range of Motion Lumbar Spine Active Flexion Range of 0-15 Motion (degrees) Lumbar Spine Active Extension Range of 0-10 Motion (degrees) Left Lumbar Spine Lateral Flexion Active 0-10 Range of Motion (degrees) Right Lumbar Spine Lateral Flexion 0-10 Active Range of Motion (degrees) Lumbar Spine ROM Limitations Soft Tissue Tightness,Pain Manual Muscle Test Bilateral Knee Extension Strength Grade 5
== END 2021-12-07 14:35 | disposition home or self-care (01) ==
LOC: PT 14:30
PROVIDERS: PCP Nurse Practitioner Family; Visit Provider Nurse Practitioner Family
DX: M54.50 Low back pain, unspecified (principal)
CPT/HCPCS: 97010; 97014; 97035; 97110; 97140; 97163; G0283

== ENCOUNTER 2021-12-13 10:37 | Emergency (ER) | payer BC, SELFPAY ==
--- NOTE | 2021-12-13 10:44 | XR_ITS ---
FINAL REPORT CLINICAL HISTORY: fall FINDINGS: LEFT FOOT Three views of the left foot demonstrate no acute fracture or dislocation. The visualized joint spaces are normally aligned. The soft tissues are unremarkable. IMPRESSION: No acute bony abnormality. Reviewed, Interpreted and Dictated by Daniel Eli III, MD Transcribed by Maximo Fisher Authenticated and [facility]
--- NOTE | 2021-12-13 10:44 | XR_ITS ---
FINAL REPORT CLINICAL HISTORY: fall FINDINGS: LEFT ANKLE: Three views of the left ankle were obtained. There is no acute fracture or dislocation. The joint spaces and mortise are intact. There is no soft tissue abnormality. IMPRESSION: No acute bony abnormality. Reviewed, Interpreted and Dictated by Daniel Eli III, MD Transcribed by Maximo Fisher Authenticated and [facility]
--- NOTE | 2021-12-13 10:44 | XR_ITS ---
FINAL REPORT CLINICAL HISTORY: fall FINDINGS: Three views of the left knee reveal no evidence of fracture or dislocation. The bony alignment is normal. The joint spaces are preserved. There is no evidence of joint effusion. No localized soft tissue abnormality is seen. IMPRESSION: No acute abnormality identified. Reviewed, Interpreted and Dictated by Daniel Eli III, MD Transcribed by Maximo Fisher Authenticated and [facility]
[2021-12-13 10:50] VITALS: BP 115/72; PULSE 85; RESP 18; TEMP 36.5; O2SAT 95; BMI 39.7
--- NOTE | 2021-12-13 11:33 | HMH.EDUTC ---
[facility] Disposition Clinical Impression: Fall Qualifiers: Encounter type: initial encounter Qualified Code(s): W19.XXXA - Unspecified fall, initial encounter Left ankle sprain Qualifiers: Encounter type: initial encounter Involved ligament of ankle: unspecified ligament Qualified Code(s): S93.402A - Sprain of unspecified ligament of left ankle, initial encounter Sprain of left foot Qualifiers: Encounter type: initial encounter Qualified Code(s): S93.602A - Unspecified sprain of left foot, initial encounter Disposition: Home, Self-Care Condition on Discharge: Good Instructions: How to Use Crutches, Knee Sprain, Ankle Sprain, DI for Ankle Sprain, How to Take Care of Your Splint Additional Instructions: Rest the extremity, apply ice for 15 minutes as tolerated three or four times per day, Wear the cabrera wrap for compression, Elevate the extremity as tolerated while you are resting. Take ibuprofen for pain. I sent in a prescription to your pharmacy. Follow up with Dr. Martinez (orthopedics). Sometimes there can be fractures that don't show up well on the first set of x-rays. So, you should follow up if you continue to have symptoms. I put in a referral but you need to call his office and schedule an appointment. Follow up with your regular doctor. GO TO THE ER FOR ANY WORSENING SYMPTOMS Prescriptions: Ibuprofen [Ibuprofen 800mg Tablet] 800 mg PO Q8HP PRN #30 tab PRN Reason: Moderate Pain Transmission Status: Received by [facility] Referrals: Esme Samano APRN [Primary Care Provider] - Freddy Martinez MD [Staff Physician] - Time of Disposition: 12:27 Medical Decision Making - Medical Records Medical records reviewed: No: I reviewed the patient's medical records. - Mike Inquiry Pt receiving controlled substance: No Vital Signs: 12/13/21 10:50 12/13/21 12:31 Temperature 97.7 F 97.7 F Temperature Source Oral Pulse Rate 85 Pulse Rate [Left Radial] 85 Respiratory Rate 18 18 Blood Pressure 115/72 Blood Pressure [Right Arm] 115/72 Blood Pressure Mean [Right Arm] 86 02 Sat by Pulse Oximetry 95 - Radiology Data #1 Image(s): Ankle Image Reviewed: Yes I reviewed the patient's radiology image, Yes I have reviewed radiologist's interpretation Preliminary Findings: Normal/NAD, No Fracture Seen FINAL REPORT CLINICAL HISTORY: fall FINDINGS: LEFT ANKLE: Three views of the left ankle were obtained. There is no acute fracture or dislocation. The joint spaces and mortise are intact. There is no soft tissue abnormality. IMPRESSION: No acute bony abnormality. Reviewed, Interpreted and Dictated by Daniel Eli III, MD Transcribed by Maximo Fisher Authenticated and . [facility] Image(s): Foot/Toes Image Reviewed: Yes I reviewed the patient's radiology image, Yes I have reviewed radiologist's interpretation Preliminary Findings: Normal/NAD, No Fracture Seen FINAL REPORT CLINICAL HISTORY: fall FINDINGS: LEFT FOOT Three views of the left foot demonstrate no acute fracture or dislocation. The visualized joint spaces are normally aligned. The soft tissues are unremarkable. IMPRESSION: No acute bony abnormality. Reviewed, Interpreted and Dictated by Daniel Eli III, MD Transcribed by Maximo Fisher Authenticated and . [facility] Image(s): Knee Image Reviewed: Yes I reviewed the patient's radiology image, Yes I discussed the image results w/the radiologist, Yes I have reviewed radiologist's interpretation Preliminary Findings: Normal/NAD, No Fracture Seen FINAL REPORT CLINICAL HISTORY: fall FINDINGS: Three views of the left knee reveal no evidence of fracture or dislocation. The bony alignment is normal. The joint spaces are preserved. There is no evidence
[2021-12-13 12:31] VITALS: BP 115/72; PULSE 85; RESP 18; TEMP 36.5
== END 2021-12-13 12:32 | disposition home or self-care (01) ==
PROVIDERS: Emergency Provider Nurse Practitioner Family; PCP Nurse Practitioner Family
DX: S93.402A Sprain of unspecified ligament of left ankle, initial encounter (principal); S93.602A Unspecified sprain of left foot, initial encounter; E78.5 Hyperlipidemia, unspecified; K21.9 Gastro-esophageal reflux disease without esophagitis; E89.0 Postprocedural hypothyroidism; E66.01 Morbid (severe) obesity due to excess calories; F32.A Depression, unspecified; F41.9 Anxiety disorder, unspecified; Z79.51 Long term (current) use of inhaled steroids; Z79.52 Long term (current) use of systemic steroids; Z79.899 Other long term (current) drug therapy; Z88.0 Allergy status to penicillin; Z88.2 Allergy status to sulfonamides; Z85.9 Personal history of malignant neoplasm, unspecified; Z68.39 Body mass index [BMI] 39.0-39.9, adult; X50.1XXA Overexertion from prolonged static or awkward postures, initial encounter; W19.XXXA Unspecified fall, initial encounter
CPT/HCPCS: 73562; 73610; 73630; 99213; G0463

== ENCOUNTER 2022-01-04 12:18 | Emergency (ER) | payer BC, SELFPAY ==
--- NOTE | 2022-01-04 12:35 | HMH.EDUTC ---
[facility] [place] Clinical Impression: Radiculopathy due to lumbar intervertebral disc disorder Low back pain Qualifiers: Chronicity: unspecified Back pain laterality: bilateral Sciatica presence: with sciatica Sciatica laterality: sciatica of right side Qualified Code(s): M54.41 - Lumbago with sciatica, right side Sciatica Qualifiers: Laterality: right Qualified Code(s): M54.31 - Sciatica, right side Disposition: Home, Self-Care Condition on Discharge: Good Instructions: Lumbar Radiculopathy, DI for Lumbar Radiculopathy Additional Instructions: Go home and rest. Try to rest for the next several days. No heavy lifting. No twisting. Take the oral medications as directed. The muscle relaxer (cyclobenzaprine--Flexeril) will make you drowsy, so don't drive or operate heavy machinery after taking it. Don't start the oral steroids (medrol dose pack) until tomorrow, since you had the shots in here today. Follow up with your regular doctor. GO TO THE ER FOR ANY WORSENING SYMPTOMS OR CONCERN, ESPECIALLY BOWEL OR BLADDER ISSUES, SADDLE AREA NUMBNESS, FEVER, ETC Prescriptions: Cyclobenzaprine HCl [Cyclobenzaprine 10mg Tab] 10 mg PO BIDP PRN #20 tab PRN Reason: Muscle Spasm Transmission Status: Received by [facility] methylPREDNISolone [Medrol] 4 mg PO DIRECTED 6 Days #21 packet Transmission Status: Received by [facility] Referrals: Esme Samano APRN [Primary Care Provider] - Time of Disposition: 13:48 Medical Decision Making - Medical Records Medical records reviewed: No: I reviewed the patient's medical records. - Mike Inquiry Pt receiving controlled substance: No Vital Signs: 01/04/22 12:37 01/04/22 14:02 Temperature 97.8 F 97.8 F Temperature Source Oral Pulse Rate 72 Pulse Rate [Left] 72 Respiratory Rate 18 18 Blood Pressure 136/68 Blood Pressure [Right Arm] 136/68 Blood Pressure Mean [Right Arm] 90 02 Sat by Pulse Oximetry 98 Orders (Tests/Meds): ED MEDICATIONS Discontinued Medications Generic Name Dose Route Start Last Admin Trade Name Freq PRN Reason Stop Dose Admin Ketorolac Tromethamine 60 mg 01/04/22 13:46 01/04/22 14:01 Ketorolac 60mg/2ml Vial IM 01/04/22 13:47 60 mg ONCE ONE Administration Methylprednisolone Sodium Succinate 125 mg 01/04/22 13:46 01/04/22 14:00 Methylprednisolone Sod Succ 125mg Vial IM 01/04/22 13:47 125 mg ONCE ONE Administration [facility] [place] - General Stated complaint: back pain Time Seen by Provider: 01/04/22 12:35 - History of Present Illness Provider Complaint: She c/o low back pain for the past 4 days with no known injury - Related Data Home Medications Medication Instructions Recorded Confirmed Levothyroxine Sodium 175 mcg PO DAILY 11/26/21 11/26/21 [Levothyroxine 175mcg (0.175mg) Tab] Vortioxetine Hydrobromide 20 mg PO DAILY 11/26/21 11/26/21 [Trintellix] Previous Rx's Medication Instructions Recorded Cyclobenzaprine HCl 10 mg PO BIDP PRN #20 tab 01/04/22 [Cyclobenzaprine 10mg Tab] methylPREDNISolone [Medrol] 4 mg PO DIRECTED 6 Days #21 01/04/22 packet Allergies Allergy/AdvReac Type Severity Reaction Status Date / Time Penicillins Allergy Unknown RASH/DIFFICULTY Verified 01/04/22 12:41 BREATHING Sulfa (Sulfonamide Allergy Unknown RASH/DIFFICULTY Verified 01/04/22 12:41 Antibiotics) BREATHING [facility] History - Hepatitis A Screen Attestation statement:: This patient has been screened for Hepatitis A risk factors. I have reviewed the patient's past medical history: Yes Medical History: Reports:: Anxiety, Cancer, Depression, Gastroesophageal Reflux Disease(GERD), Hyperlipidemia Denies:: Diabetes Mellitus Type 1, Diabetes Mellitus Type 2, Hypertension, Internal Pacemaker, MRSA, Seizures Other Medical History: Reports: Hypothyroidism. Denies: Blood Transfusion Reaction Comment: morbid obesity Laterality C
[2022-01-04 12:37] VITALS: BP 136/68; PULSE 72; RESP 18; TEMP 36.6; O2SAT 98; BMI 39.7
--- NOTE | 2022-01-04 12:40 | XR_ITS ---
FINAL REPORT CLINICAL HISTORY: fall, pt states she fell of a ramp 2 weeks ago and her back pain has only increased. FINDINGS: LUMBAR SPINE Three views were obtained. There is no acute fracture. There is no malalignment. There is mild degenerative change with small osteophytes. There is no soft tissue abnormality. IMPRESSION: Mild degenerative change with no acute bony abnormality. Reviewed, Interpreted and Dictated by Daniel Eli III, MD Transcribed by Erin Garcia Authenticated and [facility]
[2022-01-04 14:02] VITALS: BP 136/68; PULSE 72; RESP 18; TEMP 36.6
== END 2022-01-04 14:08 | disposition home or self-care (01) ==
PROVIDERS: Emergency Provider Nurse Practitioner Family; PCP Nurse Practitioner Family
DX: M51.16 Intervertebral disc disorders with radiculopathy, lumbar region (principal)
CPT/HCPCS: 72100; 96372; 99212; G0463

== ENCOUNTER 2022-02-10 18:49 | Emergency (ER) | payer BC, SELFPAY ==
--- NOTE | 2022-02-10 19:03 | XR_ITS ---
PROCEDURE INFORMATION: Exam: XR Left Foot Exam date and time: 02/10/2022 7:00 PM Age: 46 years old Clinical indication: Patient HX: Dropped plates on left foot, now with pain. ; Additional info: Dropped plates on foot TECHNIQUE: Imaging protocol: Radiologic exam of the Left foot. Views: 3 or more views. COMPARISON: CR XR FOOT LT MIN 3V 12/13/2021 10:42 AM FINDINGS: Bones/joints: Normal. Soft tissues: Normal. IMPRESSION: No acute findings.
[2022-02-10 19:30] VITALS: BP 119/63; PULSE 69; RESP 16; TEMP 36.7; O2SAT 98; BMI 38.3
--- NOTE | 2022-02-10 19:49 | HMH.EDUTC ---
[facility] [place] Clinical Impression: Contusion Qualifiers: Encounter type: initial encounter Contusion area: foot Laterality: left Qualified Code(s): S90.32XA - Contusion of left foot, initial encounter Disposition: Home, Self-Care Condition on Discharge: Good Instructions: Contusion, DI for Contusion, How To Perform RICE (Rest, Ice, Compress, Elevate) Additional Instructions: *weight bearing as tolerated *RICE, Rest the extremity, Ice 15-20 minutes 3-4 times daily, Compress- wear the carter wrap as discussed as much as possible to help reduce swelling and pain, Elevate the extremity when at rest *Carter wrap is for support and help control swelling, use it except in the shower. Be sure that is not to tight but not to loose either *Elevate when resting *Ibuprofen as directed on package every 6-8 hours as needed for pain an inflammation. If need something more can take Tylenol in between doses of Ibuprofen to help Immediately follow up with your family doctor for new or worsening of symptoms, or no noticeable improvement over the next 3-5 days Referrals: Esme Samano APRN [Primary Care Provider] - As needed Medical Decision Making - Mike Inquiry Pt receiving controlled substance: No Mike was queried for this patient: No Vital Signs: 02/10/22 19:30 Temperature 98.1 F Temperature Source Oral Pulse Rate [Left Brachial] 69 Respiratory Rate 16 Blood Pressure [Left Arm] 119/63 Blood Pressure Mean [Left Arm] 81 Blood Pressure Source [Left Arm] Automatic Cuff Blood Pressure Position [Left Arm] Sitting 02 Sat by Pulse Oximetry 98 Oxygen Delivery Method Room Air Orders (Tests/Meds): ORDERS Category Date Time Status Foot XR left minimum 3 views [XR foot LT min 3V] Stat Exams 02/10/22 19:03 Taken - Radiology Data #1 Image(s): Foot/Toes Image Reviewed: Yes I reviewed the patient's radiology image Preliminary Findings: No Fracture Seen [facility] [place] - General Stated complaint: [id number]@1300 left foot injury Time Seen by Provider: 02/10/22 19:50 Mode of Arrival: Ambulatory Source of Information: Patient Limitations: No Limitations Description of Symptoms (Recalled from Triage Doc. by RN): PATIENT C/O LEFT FOOT PAIN AFTER DROPPING PLATES ON IT TODAY HEENT Symptoms (Recalled from RN notes): No Resp Symptoms (Recalled from RN notes): No Skin Symptoms (Recalled from RN notes): No MS Symptoms (Recalled from RN notes): Yes Functional Status (Recalled from RN notes): WNL - History of Present Illness Provider Complaint: Patient states that she dropped a plate on the top of her left foot earlier today States that she has been having some bruising and swelling to the top of her foot States that this evening it was still hurting so she came in to get it checked out - Related Data Home Medications Medication Instructions Recorded Confirmed Levothyroxine Sodium 175 mcg PO DAILY 11/26/21 11/26/21 [Levothyroxine 175mcg (0.175mg) Tab] Vortioxetine Hydrobromide 20 mg PO DAILY 11/26/21 11/26/21 [Trintellix] Previous Rx's Medication Instructions Recorded Cyclobenzaprine HCl 10 mg PO BIDP PRN #20 tab 01/04/22 [Cyclobenzaprine 10mg Tab] methylPREDNISolone [Medrol] 4 mg PO DIRECTED 6 Days #21 01/04/22 packet Allergies Allergy/AdvReac Type Severity Reaction Status Date / Time Penicillins Allergy Unknown RASH/DIFFICULTY Verified 01/04/22 12:41 BREATHING Sulfa (Sulfonamide Allergy Unknown RASH/DIFFICULTY Verified 01/04/22 12:41 Antibiotics) BREATHING - Worker's Comp Is this a Worker's Comp case?: No [facility] History - Hepatitis A Screen Attestation statement:: This patient has been screened for Hepatitis A risk factors. I have reviewed the patient's past medical history: Yes Medical History: Reports:: Anxiety, Cancer, Depression, Gastroesophageal Reflux Disease(GERD), Hyperlipidemia Denies:: Diabetes Mellitus Type 1, Diabetes Mellitus Type 2, Hypertension, Internal P
[2022-02-10 20:03] VITALS: BP 119/63; PULSE 69; RESP 16; TEMP 36.7; O2SAT 98
== END 2022-02-10 20:07 | disposition home or self-care (01) ==
PROVIDERS: Emergency Provider Nurse Practitioner; PCP Nurse Practitioner Family
DX: S90.32XA Contusion of left foot, initial encounter (principal); W20.8XXA Other cause of strike by thrown, projected or falling object, initial encounter
CPT/HCPCS: 73630; 99212; G0463

== ENCOUNTER → 2022-02-25 12:58 | Outpatient (CLI) | payer BC, SELFPAY ==
--- NOTE | 2022-02-25 13:04 | MM_ITS ---
PROCEDURE INFORMATION: Exam: MG Bilateral Screening 3D Mammography Exam date and time: 02/25/2022 1:00 PM Age: 47 years old Clinical indication: Screening examination TECHNIQUE: Imaging protocol: Bilateral Screening tomosynthesis and 2D mammography including computer-aided detection (CAD) when performed. COMPARISON: 1. MG MM DIG SCREENING MAMM BI W/CAD 08/11/2019 1:08 PM 2. MG SCBI MM Dig screening mamm BI w/CAD 04/23/2018 5:08 PM FINDINGS: MAMMOGRAPHY: Breast composition: There are scattered areas of fibroglandular density. Mass: 1.7 cm mass in the anterior third of the left approximate 3 o'clock axis Architectural distortion: None. Calcifications: No suspicious calcifications. Asymmetric density: None. Skin thickening: None. Axillary adenopathy: None. IMPRESSION: Patient to be recalled for left breast ultrasound for further evaluation of a left breast mass. ASSESSMENT: BI-RADS Category 0: Incomplete- Need Additional Imaging Evaluation and/or Prior Mammograms for Comparison
== END ==
PROVIDERS: PCP Nurse Practitioner Family; Visit Provider Nurse Practitioner Family
DX: Z12.31 Encounter for screening mammogram for malignant neoplasm of breast (principal)
CPT/HCPCS: 77063; 77067

== ENCOUNTER → 2022-03-05 14:51 | Outpatient (CLI) | payer BC, SELFPAY ==
--- NOTE | 2022-03-05 14:55 | US_ITS ---
PROCEDURE INFORMATION: Exam: US Left Breast, Complete Exam date and time: 03/05/2022 3:29 PM Age: 47 years old Clinical indication: Recall from screening mammogram 02/25/2022 for sonographic evaluation of 1.7 cm mass in the anterior 3rd of the left breast approximate 3 o'clock. TECHNIQUE: Imaging protocol: Complete ultrasound of all four quadrants of the Left breast and the retroareolar regions, including ultrasound of the axilla when performed. COMPARISON: BL US BREAST-LT COMPLETE W/AXILLA 05/16/2016 1:42 PM MG MM DIG SCREENING MAMM BI W/CAD 02/25/2022 1:00 PM MG SCBI MM Dig screening mamm BI w/CAD 04/23/2018 5:08 PM MG DMDXUL DIG MAMM-DX UNI-LT 06/19/2016 4:04 PM FINDINGS: Breast: Left sonography, all 4 quadrants, retroareolar and axilla. At 2 o'clock 6 cm from the nipple, oval hypoechoic solid mass measuring 0.7 by 0.6 x 0.3 cm (a similar appearing 0.6 cm mass is annotated at 2 o'clock near the nipple on 05/16/2016). At 3 o'clock, oval, gently lobulated hypoechoic solid mass measuring 2.0 by 1.3 cm, which appears to correlate to the mammographic finding. At 7 o'clock 7 cm from the nipple, oval solid hypoechoic mass measuring 1.1 x 0.5 x 1.2 cm. At 11 o'clock 10 cm from the nipple, two oval hypoechoic solid masses measuring 0.7 x 0.4 x 0.7 cm and 0.5 x 0.6 x 0.3 cm. Sonographically unremarkable axillary lymph node. Scattered subcentimeter , 8 o'clock solid appearing masses are imaged on 05/16/2016, at 6 o'clock and 11 o'clock near the nipple - not imaged in the present study. Sonographically unremarkable left axillary lymph node. IMPRESSION: Recommend ultrasound-guided biopsy of the 2.0 cm mass at 3 o'clock with correspondence to ensure that the sonographically placed clip corresponds to the mammographic mass. Suggest six-month follow-up left breast ultrasound for the additional masses, though management may vary depending on results of the biopsy. ASSESSMENT: BI-RADS Category 4: Suspicious
== END ==
LOC: RAD 14:52
PROVIDERS: PCP Nurse Practitioner Family; Visit Provider Nurse Practitioner Family
DX: R92.8 Other abnormal and inconclusive findings on diagnostic imaging of breast (principal)
CPT/HCPCS: 76641

== ENCOUNTER 2022-05-08 15:38 | Emergency (ER) | payer BC, SELFPAY ==
--- NOTE | 2022-05-08 16:21 | XR_ITS ---
FINAL REPORT CLINICAL HISTORY: pain in shoulder FINDINGS: RIGHT SHOULDER: 3 views of the right shoulder were obtained. There is no acute fracture or dislocation. The joint spaces are intact. There is no soft tissue abnormality. IMPRESSION: No acute fracture Reviewed, Interpreted and Dictated by Daniel Eli III, MD Transcribed by Maximo Fisher Authenticated and [facility]
[2022-05-08 17:03] VITALS: BP 121/82; PULSE 89; RESP 18; TEMP 36.6; O2SAT 95; BMI 38.3
--- NOTE | 2022-05-08 17:21 | EXP.UTC ---
Discharge Plan Disposition Patient Disposition: Home, Self-Care Condition: Good Prescriptions Prescriptions: New cyclobenzaprine 10 mg tablet 10 mg PO TID PRN (Reason: muscle spasm) Qty: 15 0RF methylprednisolone [Medrol (Bennett)] 4 mg tablets,dose pack See Rx Instructions .Route .COMPLEX 6 Days Qty: 21 0RF Rx Instructions: taper pack; No Action levothyroxine 175 MCG tablet 175 mcg PO DAILY vortioxetine 20 MG tablet 20 mg PO DAILY cyclobenzaprine 10 MG tablet 10 mg PO BIDP PRN (Reason: Muscle Spasm) Qty: 20 0RF methylprednisolone 4 MG tablets,dose pack 4 mg PO DIRECTED 6 Days Qty: 21 0RF Referrals Follow up/Referrals: Esme Samano APRN [Primary Care Provider] - See instructions Activity Restrictions/Add. Instructions Additional Instructions/Restrictions: *Ibuprofen mindy 6 hours with meal as needed for pain/inflammation *Not additional anti-inflammatory like motrin, aleve, advil with the above amount of ibuprofen. You can still take Tylenol every 4 hours as needed if you need something else for pain *Ice 20 minutes every 2 hours for the first 48 hours after the initial injury followed by moist heat every 20 minutes 3-4 times a day to affected area *Muscle relaxer every 8 hours as needed for muscle spasms but remember, it WILL cause drowsiness You cannot take it and drive, operate machinery or care for small children. *Keep this area active, no movement leads to more stiffness, However take it easy and avoid heavy lifting pushing or pulling *Follow up with you family doctor if no improvement for further treatment Clinical Impressions Clinical Impression: Muscle spasm Stand Alone Forms Stand Alone Forms: Work/School Release Instructions Patient Instructions: DI for Muscle Spasm Discharge ED Provider: Angélica Meléndez [facility] General Stated complaint: Pain in right shoulder,no injury Mode of Arrival: Ambulatory Source of Information: Patient Limitations: No Limitations Time Seen by Provider: 05/08/22 17:21 Description of Symptoms (Recalled from Triage Doc. by RN): pt c/o pain in the right shoulder that radiates down the right arm and into her back HEENT Symptoms (Recalled from RN notes): No Resp Symptoms (Recalled from RN notes): No Skin Symptoms (Recalled from RN notes): No MS Symptoms (Recalled from RN notes): Yes Functional Status (Recalled from RN notes): na History of Present Illness Provider Complaint: Patient states that she has been having pain in her right shoulder area States that feels like she is having spasm in her right shoulder and shoulder blade area that at times will shoot pain down her arm States that pain worse with movement of the right arm States that she is not sure of what she may have down to hurt it Related Data Home Medications Medication Instructions Recorded Confirmed levothyroxine 175 mcg tablet 175 mcg PO DAILY THYROID 11/26/21 11/26/21 vortioxetine 20 mg tablet 20 mg PO DAILY MOOD 11/26/21 11/26/21 Previous Rx's Medication Instructions Recorded cyclobenzaprine 10 mg tablet 10 mg PO BIDP PRN Muscle Spasm #20 01/04/22 tabs methylprednisolone 4 mg tablets in 4 mg PO DIRECTED 6 days #21 01/04/22 a dose pack packets cyclobenzaprine 10 mg tablet 10 mg PO TID PRN muscle spasm #15 05/08/22 tabs methylprednisolone 4 mg tablets in See Rx Instructions .Route 05/08/22 a dose pack (Medrol (Bennett)) .COMPLEX 6 days #21 tabs Allergies Allergy/AdvReac Type Severity Reaction Status Date / Time Penicillins Allergy Unknown RASH/DIFFICULTY Verified 01/04/22 12:41 BREATHING Sulfa (Sulfonamide Allergy Unknown RASH/DIFFICULTY Verified 01/04/22 12:41 Antibiotics) BREATHING Worker's Comp Is this a Worker's Comp case?: No PFSH PFSH Social History Smoking Status: Never smoker second hand exposure: No alcohol intake: never substance use type: denies use current occupational status: other Travel in the last 8
[2022-05-08 17:49] VITALS: BP 121/82; PULSE 89; RESP 18; TEMP 36.6; O2SAT 95
== END 2022-05-08 17:54 | disposition home or self-care (01) ==
PROVIDERS: Emergency Provider Nurse Practitioner; PCP Nurse Practitioner Family
DX: M25.511 Pain in right shoulder (principal); M79.601 Pain in right arm; M54.9 Dorsalgia, unspecified; M62.838 Other muscle spasm; Z79.52 Long term (current) use of systemic steroids; Z79.899 Other long term (current) drug therapy; Z88.2 Allergy status to sulfonamides
CPT/HCPCS: 73030; 99213; G0463

== ENCOUNTER 2022-05-23 18:23 | Emergency (ER) | payer BC, SELFPAY ==
[2022-05-23 18:40] VITALS: BP 145/82; PULSE 87; RESP 20; TEMP 36.9; O2SAT 95; BMI 39.7
[2022-05-23 19:15] LABS: UTC Influenza A Antigen Negative (Negative); UTC Influenza B Antigen Negative (Negative); UTC Strep Screen (Rapid) Negative (Negative)
--- NOTE | 2022-05-23 19:24 | EXP.UTC ---
Discharge Plan Disposition Patient Disposition: Home, Self-Care Condition: Good Prescriptions Prescriptions: New azithromycin [Zithromax Z-Bennett] 250 mg tablet See Rx Instructions .ROUTE .COMPLEX 5 Days Qty: 6 0RF Rx Instructions: For 250 mg dose pack: take 500 mg today (day 1), then 250 mg for 4 days (days 2-5) benzonatate 100 mg capsule 100 mg PO TID PRN (Reason: cough) Qty: 30 0RF methylprednisolone [Medrol (Bennett)] 4 mg tablets,dose pack See Rx Instructions .Route .COMPLEX 6 Days Qty: 21 0RF Rx Instructions: taper pack; No Action levothyroxine 175 MCG tablet 175 mcg PO DAILY vortioxetine 20 MG tablet 20 mg PO DAILY cyclobenzaprine 10 mg tablet 10 mg PO TID PRN (Reason: muscle spasm) Qty: 15 0RF methylprednisolone [Medrol (Bennett)] 4 mg tablets,dose pack See Rx Instructions .Route .COMPLEX 6 Days Qty: 21 0RF Rx Instructions: taper pack; cyclobenzaprine 10 MG tablet 10 mg PO BIDP PRN (Reason: Muscle Spasm) Qty: 20 0RF methylprednisolone 4 MG tablets,dose pack 4 mg PO DIRECTED 6 Days Qty: 21 0RF Referrals Follow up/Referrals: Esme Samano APRN [Primary Care Provider] - See instructions Activity Restrictions/Add. Instructions Additional Instructions/Restrictions: *Monitor Temp, Over the counter Motrin or Tylenol as directed/as needed Tylenol every 4 hours and Motrin every 6 hours (as long as your family doctor has told you that you can take it) for fever or pain. and straight to ER if unable to lower temp less than 101.0 after medication given *Warm salt water gargles may help to soothe the throat *Throat Lozenges? *Warm fluids like tea with honey may help to soothe the throat? *Sleep elevated *Humidifier/Vaporizer Your throat swab was sent for culture. Those results are typically sent to your primary care. Be sure to follow up in 2-3 days with your family doctor/primary care physician if no improvement so they can review those result and treat if necessary. If you don?t have a primary care doctor, I recommend you get one but in the mean time, you will have to return to a walk in clinic Follow up IMMEDIATELY for new or worsening symptoms or no Noticeable improvement over the next 48-72 hours. 911 for difficulty breathing or swallowing Clinical Impressions Clinical Impression: Otitis media Instructions Patient Instructions: Middle Ear Infection, Sore Throat Discharge ED Provider: Angélica Meléndez [facility] [place] H[place] General Stated complaint: sore throat,cough,congestion ear Mode of Arrival: Ambulatory Source of Information: Patient Limitations: No Limitations Time Seen by Provider: 05/23/22 19:24 Description of Symptoms (Recalled from Triage Doc. by RN): PATIENT C/O SORE THROAT, COUGH, CONGESTION, EAR ACHE AND HEADACHE X 1 WEEK HEENT Symptoms (Recalled from RN notes): Yes Resp Symptoms (Recalled from RN notes): Yes Skin Symptoms (Recalled from RN notes): No MS Symptoms (Recalled from RN notes): No Functional Status (Recalled from RN notes): WNL History of Present Illness Provider Complaint: Patient states that she hasnt felt well for about a week States that she has been having sinus congestion and pressure, sore throat, pain in her right ear, cough and headache States that today she was still not feeling well so she came in to get checked out Related Data Home Medications Medication Instructions Recorded Confirmed levothyroxine 175 mcg tablet 175 mcg PO DAILY THYROID 11/26/21 11/26/21 vortioxetine 20 mg tablet 20 mg PO DAILY MOOD 11/26/21 11/26/21 Previous Rx's Medication Instructions Recorded cyclobenzaprine 10 mg tablet 10 mg PO BIDP PRN Muscle Spasm #20 01/04/22 tabs methylprednisolone 4 mg tablets in 4 mg PO DIRECTED 6 days #21 01/04/22 a dose pack packets cyclobenzaprine 10 mg tablet 10 mg PO TID PRN muscle spasm #15 05/08/22 tabs methylprednisolone 4 mg tablets in See Rx Instructions .Route 1
[2022-05-23 19:27] VITALS: BP 145/82; PULSE 87; RESP 20; TEMP 36.9; O2SAT 95
== END 2022-05-23 19:30 | disposition home or self-care (01) ==
PROVIDERS: Emergency Provider Nurse Practitioner; PCP Nurse Practitioner Family
DX: H66.90 Otitis media, unspecified, unspecified ear (principal)
CPT/HCPCS: 87804; 87880; 99212; G0463

== ENCOUNTER 2022-06-07 18:46 | Emergency (ER) | payer BC, SELFPAY ==
--- NOTE | 2022-06-07 19:14 | EXP.UTC ---
Discharge Plan Disposition Patient Disposition: Home, Self-Care Condition: Good Prescriptions Prescriptions: New benzonatate [benzonatate] 100 mg capsule 100 mg PO TIDP PRN (Reason: Cough) Qty: 30 0RF methylprednisolone 4 mg Tablets,Dose Pack 4 mg PO DIRECTED Qty: 21 0RF No Action levothyroxine 175 MCG tablet 175 mcg PO DAILY vortioxetine 20 MG tablet 20 mg PO DAILY cyclobenzaprine 10 mg tablet 10 mg PO TID PRN (Reason: muscle spasm) Qty: 15 0RF methylprednisolone [Medrol (Bennett)] 4 mg tablets,dose pack See Rx Instructions .Route .COMPLEX 6 Days Qty: 21 0RF Rx Instructions: taper pack; azithromycin [Zithromax Z-Bennett] 250 mg tablet See Rx Instructions .ROUTE .COMPLEX 5 Days Qty: 6 0RF Rx Instructions: For 250 mg dose pack: take 500 mg today (day 1), then 250 mg for 4 days (days 2-5) benzonatate 100 mg capsule 100 mg PO TID PRN (Reason: cough) Qty: 30 0RF methylprednisolone [Medrol (Bennett)] 4 mg tablets,dose pack See Rx Instructions .Route .COMPLEX 6 Days Qty: 21 0RF Rx Instructions: taper pack; cyclobenzaprine 10 MG tablet 10 mg PO BIDP PRN (Reason: Muscle Spasm) Qty: 20 0RF methylprednisolone 4 MG tablets,dose pack 4 mg PO DIRECTED 6 Days Qty: 21 0RF Referrals Follow up/Referrals: Esme Samano APRN [Primary Care Provider] - See instructions Activity Restrictions/Add. Instructions Additional Instructions/Restrictions: Drink plenty of fluids. Take tylenol or ibuprofen for pain or fever. Take the medications as directed. Follow up with your regular doctor. GO TO THE ER FOR ANY WORSENING SYMPTOMS Clinical Impressions Clinical Impression: Acute viral syndrome Instructions Patient Instructions: DI for Viral Syndrome Discharge ED Provider: Jai De Jesus [facility] General Stated complaint: sore throat, Ears Time Seen by Provider: 06/07/22 19:14 History of Present Illness Provider Complaint: She states that for the past 2 days she has had a cough, chest congestion, fever, chills, and body aches. Related Data Home Medications Medication Instructions Recorded Confirmed levothyroxine 175 mcg tablet 175 mcg PO DAILY THYROID 11/26/21 11/26/21 vortioxetine 20 mg tablet 20 mg PO DAILY MOOD 11/26/21 11/26/21 Previous Rx's Medication Instructions Recorded cyclobenzaprine 10 mg tablet 10 mg PO BIDP PRN Muscle Spasm #20 01/04/22 tabs methylprednisolone 4 mg tablets in 4 mg PO DIRECTED 6 days #21 01/04/22 a dose pack packets cyclobenzaprine 10 mg tablet 10 mg PO TID PRN muscle spasm #15 05/08/22 tabs methylprednisolone 4 mg tablets in See Rx Instructions .Route 05/08/22 a dose pack (Medrol (Bennett)) .COMPLEX 6 days #21 tabs azithromycin 250 mg tablet See Rx Instructions PO .COMPLEX 5 05/23/22 (Zithromax Z-Bennett) days #6 tabs benzonatate 100 mg capsule 100 mg PO TID PRN cough #30 caps 05/23/22 methylprednisolone 4 mg tablets in See Rx Instructions .Route 05/23/22 a dose pack (Medrol (Bennett)) .COMPLEX 6 days #21 tabs benzonatate 100 mg capsule 100 mg PO TIDP PRN Cough #30 caps 06/07/22 methylprednisolone 4 mg tablets in 4 mg PO DIRECTED #21 tabs 06/07/22 a dose pack Allergies Allergy/AdvReac Type Severity Reaction Status Date / Time Penicillins Allergy Unknown RASH/DIFFICULTY Verified 06/07/22 19:29 BREATHING Sulfa (Sulfonamide Allergy Unknown RASH/DIFFICULTY Verified 06/07/22 19:29 Antibiotics) BREATHING PFSH PFSH Disclaimer: The information contained in this section may have been updated after the patient was seen, as this information can be updated by other users. Medical History Anemia Anxiety Cancer GERD (gastroesophageal reflux disease) Kidney stone Thyroid disease UTI (urinary tract infection) Surgical History History of section History of cholecystect
[2022-06-07 19:26] VITALS: BP 136/82; PULSE 100; RESP 18; TEMP 36.6; O2SAT 96; BMI 39.7
[2022-06-07 20:18] VITALS: BP 136/82; PULSE 100; RESP 18; TEMP 36.6
[2022-06-07 20:40] LABS: Adenovirus,PCR Not Detected (NotDetected); Coronavirus 229E Not Detected (NotDetected); Coronavirus NL63 Not Detected (NotDetected); Coronavirus OC43 Not Detected (NotDetected); Coronovirus HKU1,PCR Not Detected (NotDetected); Human Metapneumovirus Not Detected (NotDetected); Influenza A, PCR Not Detected (NotDetected); Influenza AH1, 2009 Not Detected (NotDetected); Influenza AH1, PCR Not Detected (NotDetected); Influenza AH3,PCR Not Detected (NotDetected); Influenza B, PCR Not Detected (NotDetected); Parainfluenza 1, PCR Not Detected (NotDetected); Parainfluenza 2, PCR Not Detected (NotDetected); Parainfluenza 3, PCR Not Detected (NotDetected); Parainfluenza 4, PCR Not Detected (NotDetected); Respiratory Syncytial Virus Not Detected (NotDetected); Rhinovirus/Enterovirus Not Detected (NotDetected)
[2022-06-07 20:41] LABS: Bordetella Pertussis Not Detected (NotDetected); Chlamydophila Pneumoniae, PCR Not Detected (NotDetected); Coronavirus 19, PCR Not Detected (NotDetected); Mycoplasma Pneumoniae, PCR Not Detected (NotDetected)
== END 2022-06-07 20:25 | disposition home or self-care (01) ==
PROVIDERS: Emergency Provider Nurse Practitioner Family; PCP Nurse Practitioner Family
DX: J02.9 Acute pharyngitis, unspecified (principal); R09.89 Other specified symptoms and signs involving the circulatory and respiratory systems; R50.9 Fever, unspecified; B34.9 Viral infection, unspecified
CPT/HCPCS: 87581; 87632; 87798; 99212; C9803; G0463; U0003; U0005

== ENCOUNTER → 2022-10-01 14:43 | Outpatient (CLI) | payer BC, SELFPAY ==
[2022-10-01 15:28] LABS: Basophils # 0.3 K/mm3 (0-0.2); Basophils % 3.3 % (0.1-2.0); Eosinophils # 0.2 K/mm3 (0.0-0.4); Eosinophils % 2.6 % (0.1-12.0); Hematocrit 40.3 % (37.0-47.0); Hemoglobin 13.2 g/dL (12.2-16.2); Lymphocytes # 3.1 K/mm3 (0.7-4.5); Lymphocytes % 33.1 % (10-50); Mean Corpuscular HGB Conc 32.6 g/dL (31.8-35.4); Mean Corpuscular Hemoglobin 27.1 pg (27.0-31.2); Mean Corpuscular Volume 83.1 fl (81-99); Mean Platelet Volume 7.3 fl (7.4-10.4); Monocytes # 0.3 K/mm3 (0.1-1.0); Monocytes % 3.1 % (1.7-9.3); Neutrophils # 5.4 K/mm3 (1.8-7.8); Neutrophils % 57.9 % (37.0-80.0); Platelet Count 392 K/mm3 (142-424); Red Blood Count 4.86 M/mm3 (4.20-5.40); Red Cell Distribution Width 13.9 % (11.5-17.5); White Blood Count 9.3 K/mm3 (4.8-10.8)
[2022-10-01 15:43] LABS: Alanine Aminotransferase 19 U/L (12-78); Albumin Level 3.9 g/dl (3.5-5.0); Albumin/Globulin Ratio 1.6 (1.1-1.8); Alkaline Phosphatase 93 U/L (38-126); Aspartate Amino Transferase 22 U/L (14-36); Bilirubin,Total 0.3 mg/dl (0.2-1.3); Blood Urea Nitrogen 6 mg/dl (7-17); Calcium 8.4 mg/dl (8.4-10.2); Carbon Dioxide 29 mmol/L (22.0-30.0); Chloride 102 mmol/L (98-107); Estimated Glomerular Filt Rate 107 ml/min (>60); GFR (African American) 130 ML/MIN (>60); Globulin 2.5 g/dL (1.3-3.2); Glucose 98 mg/dl (74-100); Sodium 133 mmol/L (136-145); Total Protein,Serum 6.4 g/dl (6.3-8.2)
[2022-10-01 16:00] LABS: Free Thyroxine Index 3.4 ug/dL (5.93-13.13); Triiodothryronine (T3) Uptake 28 % (23.5-40.5)
[2022-10-01 16:01] LABS: 25-OH Vitamin D, Total 13.5 ng/mL (30-100)
[2022-10-01 16:13] LABS: Thyroid Stimulating Hormone 2.32 uIU/mL (0.465-4.68)
[2022-10-01 16:33] LABS: Vitamin B12 261 pg/mL (239-931)
[2022-10-03 08:43] LABS: FSH 24.9 mIU/mL (.)
[2022-10-03 10:34] LABS: LH 12.5 mIU/mL (.)
[2022-10-07 18:18] LABS: Estrogen 46 pg/mL (.)
== END ==
PROVIDERS: PCP Nurse Practitioner Family; Visit Provider Nurse Practitioner Family
DX: E03.9 Hypothyroidism, unspecified (principal); R53.82 Chronic fatigue, unspecified; R23.2 Flushing; E55.9 Vitamin D deficiency, unspecified
CPT/HCPCS: 36415; 80053; 82306; 82607; 82672; 83001; 83002; 84436; 84443; 84479; 85025

== ENCOUNTER → 2023-04-03 18:03 | Outpatient (CLI) | payer BC, SELFPAY ==
--- NOTE | 2023-04-03 18:15 | XR_ITS ---
PROCEDURE INFORMATION: Exam: XR Left Elbow Exam date and time: 04/03/2023 6:32 PM Age: 48 years old Clinical indication: Injury or trauma; Fall; Work related; Swelling (edema); Injury date: 04/01/2023; Injury details: Walking down steps and fell landing on left elbow , swelling , and bruising to posterior elbow; Additional info: Left elbow pain TECHNIQUE: Imaging protocol: Radiologic exam of the left elbow. Views: 3 or more views. COMPARISON: CR XR SHOULDER LT MIN 2V 01/14/2020 5:11 PM FINDINGS: Bones/joints: No acute fracture or malalignment. No joint effusion. Soft tissues: Mild posterior elbow soft tissue swelling. IMPRESSION: Mild posterior elbow soft tissue swelling. No acute osseous findings.
== END ==
PROVIDERS: PCP Nurse Practitioner Family; Visit Provider Nurse Practitioner Family
DX: M25.522 Pain in left elbow (principal)
CPT/HCPCS: 73080

== ENCOUNTER → 2023-04-07 23:21 | Outpatient (CLI) | payer BC, SELFPAY | PROVIDERS: PCP Nurse Practitioner Family; Visit Provider Student in an Organized Health Care Education/Training Program | DX: R05.9 Cough, unspecified (principal); R06.02 Shortness of breath; R51.9 Headache, unspecified; R09.81 Nasal congestion | CPT/HCPCS: 87635 ==

== ENCOUNTER 2023-04-12 17:08 | Emergency (ER) | payer BC, SELFPAY ==
[2023-04-12 17:30] VITALS: BP 149/86; PULSE 81; RESP 20; TEMP 36.8; O2SAT 96; BMI 39.9
--- NOTE | 2023-04-12 17:35 | EXP.UTC ---
Discharge Plan Disposition Patient Disposition: Home, Self-Care Condition: Good Prescriptions Prescriptions: New doxycycline monohydrate 100 mg tablet 100 mg PO BID Qty: 20 0RF prednisone 20 mg tablet 20 mg PO BID Qty: 10 0RF promethazine-DM 6.25-15 mg/5 mL syrup 5 ml PO Q6H PRN (Reason: Cough) Qty: 60 0RF albuterol sulfate [Ventolin HFA] 90 mcg/actuation HFA aerosol inhaler 2 puff inhalation QIDP PRN (Reason: Wheezing) Qty: 1 0RF No Action omeprazole 40 mg capsule,delayed release(DR/EC) 40 mg PO DAILY Qty: 30 3RF Rx Instructions: 1 capsule by mouth, every morning montelukast 10 mg tablet 10 mg PO DAILY [id number]-mxbdpxhmh-QN [Bromfed DM] 2-30-10 mg/5 mL syrup 5 ml PO Q4-6H PRN (Reason: cold symptoms) Qty: 118 0RF azithromycin [Zithromax Z-Bennett] 250 mg tablet See Rx Instructions PO .COMPLEX Qty: 6 0RF Rx Instructions: For 250 mg dose pack: take 500 mg today (day 1), then 250 mg for 4 days (days 2-5) PO levothyroxine 175 MCG tablet 175 mcg PO DAILY Referrals Follow up/Referrals: Esme Samano APRN [Primary Care Provider] - See instructions Activity Restrictions/Add. Instructions Additional Instructions/Restrictions: Jello tea, humidifier, increase fluids Clinical Impressions Clinical Impression: Bronchitis Instructions Patient Instructions: DI for Acute Bronchitis Discharge ED Provider: [place] Hernandez [facility] [place] Stated complaint: coughing and heavy chest Time Seen by Provider: 04/12/23 17:44 History of Present Illness Provider Complaint: Cough and congestion for over a week. Chest feels heavy, tight. COugh productive. No fever. No vomiting or diarrhea. Does not smoke. 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 Onset (ago): week(s) (1) Relieving factors: none Exacerbating factors: none Associated symptoms: cough Treatments prior to arrival: other (Nyquil) Related Data Home Medications Medication Instructions Recorded Confirmed levothyroxine 175 mcg tablet 175 mcg PO DAILY THYROID 11/26/21 04/07/23 montelukast 10 mg tablet 10 mg PO DAILY 04/07/23 04/07/23 Previous Rx's Medication Instructions Recorded omeprazole 40 mg capsule,delayed 40 mg PO DAILY #30 caps 08/14/22 release gqxfqagjwxbytry-aaobkllhhalpqjp-KU 5 ml PO Q4-6H PRN cold symptoms 04/07/23 2 mg-30 mg-10 mg/5 mL oral syrup #118 mL (Bromfed DM) azithromycin 250 mg tablet See Rx Instructions PO .COMPLEX #6 04/08/23 (Zithromax Z-Bennett) tabs albuterol sulfate 90 mcg/actuation 2 puff inhalation QIDP PRN 04/12/23 aerosol inhaler (Ventolin HFA) Wheezing #1 ea doxycycline monohydrate 100 mg 100 mg PO BID #20 tabs 04/12/23 tablet prednisone 20 mg tablet 20 mg PO BID #10 tabs 04/12/23 promethazine-DM 6.25 mg-15 mg/5 mL 5 ml PO Q6H PRN Cough #60 mL 04/12/23 oral syrup Allergies Allergy/AdvReac Type Severity Reaction Status Date / Time Penicillins Allergy Unknown RASH/DIFFICULTY Verified 04/07/23 10:01 BREATHING Sulfa (Sulfonamide Allergy Unknown RASH/DIFFICULTY Verified 04/07/23 10:01 Antibiotics) BREATHING PFSH PFSH Disclaimer: The information contained in this section may have been updated after the patient was seen, as this information can be updated by other users. Medical History Anemia Anxiety Cancer Dysphagia Dysphonia GERD (gastroesophageal reflux disease) Kidney stone Sore throat Thyroid disease UTI (urinary tract infection) Surgical History History of section History of cholecystectomy History of hysterectomy Social History Smoking Status: Never smoker second hand exposure: No alcohol intake: never substance use type: denies use current occupational status: other Travel in the last 8 weeks: None household members: spouse housing: house current
[2023-04-12 17:48] VITALS: BP 149/86; PULSE 81; RESP 20; TEMP 36.8; O2SAT 96
== END 2023-04-12 17:54 | disposition home or self-care (01) ==
PROVIDERS: Emergency Provider Physician Assistant; PCP Nurse Practitioner Family
DX: J20.9 Acute bronchitis, unspecified (principal); R07.9 Chest pain, unspecified; E03.9 Hypothyroidism, unspecified; K21.9 Gastro-esophageal reflux disease without esophagitis; F41.9 Anxiety disorder, unspecified
CPT/HCPCS: 99212; 99214; G0463

== ENCOUNTER 2023-04-20 12:47 | Emergency (ER) | payer BC, SELFPAY ==
[2023-04-20 13:20] VITALS: BP 127/70; PULSE 91; RESP 16; TEMP 37; O2SAT 96; BMI 38.2
--- NOTE | 2023-04-20 13:23 | EXP.UTC ---
Discharge Plan Disposition Patient Disposition: Home, Self-Care Condition: Good Prescriptions Prescriptions: New fluticasone propionate [Flonase Allergy Relief] 50 mcg/actuation spray,suspension 1 - 2 spray intranasal DAILY Qty: 16 0RF Rx Instructions: administer into each nostril daily No Action omeprazole 40 mg capsule,delayed release(DR/EC) 40 mg PO DAILY Qty: 30 3RF Rx Instructions: 1 capsule by mouth, every morning montelukast 10 mg tablet 10 mg PO DAILY mjndmbfldoymkgh-ntworojze-DK [Bromfed DM] 2-30-10 mg/5 mL syrup 5 ml PO Q4-6H PRN (Reason: cold symptoms) Qty: 118 0RF famotidine 40 mg tablet 40 mg PO DAILY Qty: 30 2RF levothyroxine 175 MCG tablet 175 mcg PO DAILY doxycycline monohydrate 100 mg tablet 100 mg PO BID Qty: 20 0RF prednisone 20 mg tablet 20 mg PO BID Qty: 10 0RF promethazine-DM 6.25-15 mg/5 mL syrup 5 ml PO Q6H PRN (Reason: Cough) Qty: 60 0RF albuterol sulfate [Ventolin HFA] 90 mcg/actuation HFA aerosol inhaler 2 puff inhalation QIDP PRN (Reason: Wheezing) Qty: 1 0RF Referrals Follow up/Referrals: Kamille Grimes APRN [Nurse Practitioner] - See instructions Esme Samano APRN [Primary Care Provider] - See instructions Activity Restrictions/Add. Instructions Additional Instructions/Restrictions: *Monitor Temp, Over the counter Motrin or Tylenol as directed/as needed Tylenol every 4 hours and Motrin every 6 hours (as long as your family doctor has told you that you can take it) for fever or pain. and straight to ER if unable to lower temp less than 101.0 after medication given *Warm salt water gargles may help to soothe the throat *Throat Lozenges? *Warm fluids like tea with honey may help to soothe the throat? *Sleep elevated *Humidifier/Vaporizer *Flonase 2 sprays in each nostril daily but be aware that it may take 2-3 days before you notice improvement Continue your medication as it was prescribed and avoid spicy and greasy food as this may aggravate your GERD Your throat swab was sent for culture. Those results are typically sent to your primary care. Be sure to follow up in 2-3 days with your family doctor/primary care physician if no improvement so they can review those result and treat if necessary. If you don?t have a primary care doctor, I recommend you get one but in the mean time, you will have to return to a walk in clinic Follow up IMMEDIATELY for new or worsening symptoms or no Noticeable improvement over the next 48-72 hours with your Family Doctor and ENT 911 for difficulty breathing or swallowing Clinical Impressions Clinical Impression: Sore throat Instructions Patient Instructions: Sore Throat, DI for Gastroesophageal Reflux Disease (GERD) Discharge ED Provider: Angélica Meléndez [facility] [place] HPI General Stated complaint: sore throat Time Seen by Provider: 04/20/23 13:24 History of Present Illness Provider Complaint: Patient states that she has been seen several times over the last month for sore throat and cough States that she has been on several different antibiotics over the last few weeks and she seen ENT awaiting to get a CT scheduled States that today her throat felt swollen and more irritated so she came back in to get it checked again to make sure she didnt have strep throat Related Data Home Medications Medication Instructions Recorded Confirmed levothyroxine 175 mcg tablet 175 mcg PO DAILY THYROID 11/26/21 04/14/23 montelukast 10 mg tablet 10 mg PO DAILY 04/07/23 04/14/23 Previous Rx's Medication Instructions Recorded omeprazole 40 mg capsule,delayed 40 mg PO DAILY #30 caps 08/14/22 release nawshqgcezxywya-mekcjstorgjehmd-HK 5 ml PO Q4-6H PRN cold symptoms 04/07/23 2 mg-30 mg-10 mg/5 mL oral syrup #118 mL (Bromfed DM) albuterol sulfate 90 mcg/actuation 2 puff inhalation QIDP PRN 04/12/23 aerosol inhaler (Ventolin HFA) Wheezing #1 ea doxy
[2023-04-20 13:24] LABS: UTC Strep Screen (Rapid) Negative (Negative)
[2023-04-20 13:49] VITALS: BP 127/70; PULSE 91; RESP 16; TEMP 37; O2SAT 96
== END 2023-04-20 13:54 | disposition home or self-care (01) ==
PROVIDERS: Emergency Provider Nurse Practitioner; PCP Nurse Practitioner Family
DX: J02.9 Acute pharyngitis, unspecified (principal); K21.9 Gastro-esophageal reflux disease without esophagitis; J45.909 Unspecified asthma, uncomplicated; F41.9 Anxiety disorder, unspecified; Z85.850 Personal history of malignant neoplasm of thyroid
CPT/HCPCS: 87880; 99212; 99213; G0463

== ENCOUNTER → 2023-05-02 13:30 | Outpatient (CLI) | payer BC, SELFPAY ==
--- NOTE | 2023-05-02 13:36 | CT_ITS ---
FINAL REPORT TECHNIQUE: Thin section axial CT images with coronal and sagittal reformats were performed through the neck. This study was performed with techniques to keep radiation doses as low as reasonably achievable (ALARA). Individualized dose reduction techniques using automated exposure control or adjustment of mA and/or kV according to the patient''s size were employed. CLINICAL HISTORY: Chronic Cough FINDINGS: The thyroid is not seen, presumably surgically absent. There is moderate mucosal thickening of the left maxillary sinus. The nasopharynx, oropharynx, hypopharynx, and larynx are unremarkable. There are multiple small borderline sized neck nodes which are nonspecific, may be reactive or neoplastic. No dominant neck mass is identified. IMPRESSION: Presumed thyroidectomy. Bilateral borderline sized neck nodes, may be reactive or neoplastic. This could be further evaluated with neck CT or PET-CT. Reviewed, Interpreted and Dictated by Daniel Eli III, MD Transcribed by Kalie Parmar Authenticated and [facility]
== END ==
PROVIDERS: PCP Nurse Practitioner Family; Visit Provider Nurse Practitioner
DX: R05.9 Cough, unspecified (principal)
CPT/HCPCS: 70490

== ENCOUNTER 2023-06-02 17:40 | Emergency (ER) | payer BC, SELFPAY ==
[2023-06-02 18:45] VITALS: BP 150/91; PULSE 83; RESP 18; TEMP 36.7; O2SAT 98; BMI 38.9
--- NOTE | 2023-06-02 18:50 | EXP.UTC ---
Discharge Plan Disposition Patient Disposition: Home, Self-Care Condition: Good Prescriptions Prescriptions: New promethazine-DM 6.25-15 mg/5 mL Syrup 5 ml PO Q6H PRN (Reason: Cough) Qty: 240 0RF azithromycin [Zithromax] 250 mg tablet 250 mg PO UD DOSE PK Qty: 6 0RF Rx Instructions: Take two (2) tablets today, then one (1) tablet days #2 thru #5 methylprednisolone 4 mg Tablets,Dose Pack 4 mg PO DIRECTED Qty: 21 0RF guaifenesin [Mucinex] 600 mg tablet extended release 12hr 600 - 1,200 mg PO BIDP PRN (Reason: Congestion) Qty: 30 0RF No Action omeprazole 40 mg capsule,delayed release(DR/EC) 40 mg PO DAILY Qty: 30 3RF Rx Instructions: 1 capsule by mouth, every morning montelukast 10 mg tablet 10 mg PO DAILY levothyroxine 175 MCG tablet 175 mcg PO DAILY albuterol sulfate [Ventolin HFA] 90 mcg/actuation HFA aerosol inhaler 2 puff inhalation QIDP PRN (Reason: Wheezing) Qty: 1 0RF fluticasone propionate [Flonase Allergy Relief] 50 mcg/actuation spray,suspension 1 - 2 spray intranasal DAILY Qty: 16 0RF Rx Instructions: administer into each nostril daily Referrals Follow up/Referrals: Esme Samano APRN [Primary Care Provider] - See instructions Activity Restrictions/Add. Instructions Additional Instructions/Restrictions: Drink plenty of fluids. Take tylenol or ibuprofen for pain or fever. Take the medications as directed. Follow up with your regular doctor. GO TO THE ER FOR ANY WORSENING SYMPTOMS Clinical Impressions Clinical Impression: Acute bronchitis, RSV exposure Stand Alone Forms Stand Alone Forms: Work/School Release Instructions Patient Instructions: DI for Respiratory Syncytial Virus -- Adults Discharge ED Provider: Jai De Jesus [facility] HPI General Stated complaint: cough, congestion, sore throat Time Seen by Provider: 06/02/23 18:50 History of Present Illness Provider Complaint: She states that for the past 2 days she has had chills, body aches and low grade fever. Related Data Home Medications Medication Instructions Recorded Confirmed levothyroxine 175 mcg tablet 175 mcg PO DAILY THYROID 11/26/21 06/02/23 montelukast 10 mg tablet 10 mg PO DAILY 04/07/23 06/02/23 Previous Rx's Medication Instructions Recorded omeprazole 40 mg capsule,delayed 40 mg PO DAILY #30 caps 08/14/22 release albuterol sulfate 90 mcg/actuation 2 puff inhalation QIDP PRN 04/12/23 aerosol inhaler (Ventolin HFA) Wheezing #1 ea fluticasone propionate 50 1 - 2 spray intranasal DAILY #16 04/20/23 mcg/actuation nasal grams spray,suspension (Flonase Allergy Relief) azithromycin 250 mg tablet 250 mg PO UD DOSE PK #6 tabs 06/02/23 (Zithromax) guaifenesin 600 mg tablet, 600 - 1,200 mg PO BIDP PRN 06/02/23 extended release 12 hr (Mucinex) Congestion #30 tabs methylprednisolone 4 mg tablets in 4 mg PO DIRECTED #21 tabs 06/02/23 a dose pack promethazine-DM 6.25 mg-15 mg/5 mL 5 ml PO Q6H PRN Cough #240 mL 06/02/23 oral syrup Allergies Allergy/AdvReac Type Severity Reaction Status Date / Time Penicillins Allergy Unknown RASH/DIFFICULTY Verified 06/02/23 19:10 BREATHING Sulfa (Sulfonamide Allergy Unknown RASH/DIFFICULTY Verified 06/02/23 19:10 Antibiotics) BREATHING PFSH PFSH Disclaimer: The information contained in this section may have been updated after the patient was seen, as this information can be updated by other users. Medical History Anemia Anxiety Asthma Cancer Cough Dysphagia Dysphonia GERD (gastroesophageal reflux disease) History of thyroid cancer Hoarseness Kidney stone Sore throat Thyroid disease UTI (urinary tract infection) Surgical History History of section History of cholecystectomy History of hysterectomy Social History (Reviewed 06/02/23 @ 19:1
[2023-06-02 19:55] LABS: Adenovirus,PCR Not Detected (NotDetected); Coronavirus 19, PCR Not Detected (NotDetected); Coronavirus 229E Not Detected (NotDetected); Coronavirus NL63 Not Detected (NotDetected); Coronavirus OC43 Not Detected (NotDetected); Coronovirus HKU1,PCR Not Detected (NotDetected); Human Metapneumovirus Not Detected (NotDetected); Influenza A, PCR Not Detected (NotDetected); Influenza AH1, 2009 Not Detected (NotDetected); Influenza AH1, PCR Not Detected (NotDetected); Influenza AH3,PCR Not Detected (NotDetected); Influenza B, PCR Not Detected (NotDetected); Parainfluenza 1, PCR Not Detected (NotDetected); Parainfluenza 2, PCR Not Detected (NotDetected); Parainfluenza 3, PCR Not Detected (NotDetected); Parainfluenza 4, PCR Not Detected (NotDetected); Respiratory Syncytial Virus Not Detected (NotDetected); Rhinovirus/Enterovirus Not Detected (NotDetected)
[2023-06-02 20:00] VITALS: BP 130/91; PULSE 83; RESP 18; TEMP 36.7; O2SAT 98
== END 2023-06-02 19:30 | disposition home or self-care (01) ==
PROVIDERS: Emergency Provider Nurse Practitioner Family; PCP Nurse Practitioner Family
DX: J20.9 Acute bronchitis, unspecified (principal); R50.9 Fever, unspecified; R05.9 Cough, unspecified; R07.0 Pain in throat; R09.81 Nasal congestion; J45.909 Unspecified asthma, uncomplicated; K21.9 Gastro-esophageal reflux disease without esophagitis; E03.9 Hypothyroidism, unspecified; Z20.828 Contact with and (suspected) exposure to other viral communicable diseases
CPT/HCPCS: 87581; 87632; 87635; 87798; 96372; 99212; 99214; G0463

== ENCOUNTER → 2023-07-03 17:02 | Outpatient (CLI) | payer BC, SELFPAY ==
[2023-07-03 17:27] LABS: Basophils # 0.1 K/mm3 (0-0.2); Basophils % 0.7 % (0.1-2.0); Eosinophils # 0.3 K/mm3 (0.0-0.4); Eosinophils % 3.4 % (0.1-12.0); Hematocrit 40.4 % (37.0-47.0); Lymphocytes # 3.4 K/mm3 (0.7-4.5); Mean Corpuscular HGB Conc 34.6 g/dL (31.8-35.4); Mean Corpuscular Hemoglobin 28.1 pg (27.0-31.2); Mean Corpuscular Volume 81.4 fl (81-99); Mean Platelet Volume 7.5 fl (7.4-10.4); Monocytes # 0.3 K/mm3 (0.1-1.0); Neutrophils # 5.4 K/mm3 (1.8-7.8); Neutrophils % 56.8 % (37.0-80.0); Platelet Count 337 K/mm3 (142-424); Red Blood Count 4.96 M/mm3 (4.20-5.40); Red Cell Distribution Width 13.6 % (11.5-17.5); White Blood Count 9.5 K/mm3 (4.8-10.8)
[2023-07-03 17:29] LABS: Chloride 105 mmol/L (98-107); Sodium 139 mmol/L (136-145)
[2023-07-03 17:31] LABS: Blood Urea Nitrogen 10 mg/dl (7-17); Estimated Glomerular Filt Rate 107 ml/min (>60); GFR (African American) 129 ML/MIN (>60)
[2023-07-03 17:32] LABS: Alanine Aminotransferase 20 U/L (12-78); Albumin Level 3.9 g/dl (3.5-5.0); Albumin/Globulin Ratio 1.5 (1.1-1.8); Alkaline Phosphatase 88 U/L (38-126); Aspartate Amino Transferase 22 U/L (14-36); Bilirubin,Total 0.3 mg/dl (0.2-1.3); Calcium 8.5 mg/dl (8.4-10.2); Carbon Dioxide 27 mmol/L (22.0-30.0); Globulin 2.6 g/dL (1.3-3.2); Glucose 125 mg/dl (74-100); Iron 52 ug/dL (37-170); Total Protein,Serum 6.5 g/dl (6.3-8.2)
[2023-07-03 17:55] LABS: Free T4 (Free Thyroxine) 1.55 ng/dl (0.78-2.19)
[2023-07-03 18:15] LABS: Total Iron Binding Capacity 379 ug/dL (265-497)
[2023-07-03 18:30] LABS: Vitamin B12 289 pg/mL (239-931)
[2023-07-03 18:37] LABS: Thyroid Stimulating Hormone 0.28 uIU/mL (0.465-4.68)
[2023-07-03 18:41] LABS: Ferritin 21.9 ng/ml (6.24-137)
[2023-07-03 18:56] LABS: 25-OH Vitamin D, Total 31.9 ng/mL (30-100)
== END ==
LOC: LAB 17:03
PROVIDERS: PCP Physician Assistant; Visit Provider Physician Assistant
DX: E03.9 Hypothyroidism, unspecified (principal); R53.83 Other fatigue; E55.9 Vitamin D deficiency, unspecified
CPT/HCPCS: 36415; 80053; 82306; 82607; 82728; 83540; 83550; 84439; 84443; 85025

== ENCOUNTER 2024-09-21 09:52 | Outpatient (CLI) | payer BC, SELFPAY ==
--- NOTE | 2024-09-21 10:01 | XR_ITS ---
FINAL REPORT TECHNIQUE: 5 views CLINICAL HISTORY: LOW BACK PAIN OTHER CHRONIC BACK COMPARISON: 01/04/2022 FINDINGS: LUMBOSACRAL SPINE: 5 views of the lumbosacral spine were obtained. There is no fracture present. There is no malalignment. There is minimal endplate degenerative spurring, similar to that seen on the prior exam. The disc spaces are preserved. IMPRESSION: Stable mild degenerative change without acute bony abnormality. Reviewed, Interpreted and Dictated by Shantell Mancera MD Transcribed by Soraida Mary Authenticated and [facility]
== END 2024-09-21 23:59 | disposition home or self-care (01) ==
LOC: RAD 09:53
PROVIDERS: PCP Nurse Practitioner Family; Visit Provider Nurse Practitioner Family
DX: G89.29 Other chronic pain (principal); M54.50 Low back pain, unspecified
CPT/HCPCS: 72110

== ENCOUNTER → 2024-12-23 13:19 | Outpatient (CLI) | payer BC, SELFPAY ==
--- OUTSIDE RECORDS SUMMARY | 2024-12-23 13:21 | XMS_ITS | Clinical Summary ---
Author Organization [facility] Address [address] [place] [address] Care Team Providers Care Sales And Marketing Professional Name Role Phone Esme Samano WEB MARKETING SPECIALIST Primary Care Provider [phone] Allergies Active Allergy Reactions Criticality Noted Date Comments Penicillins Shortness of breath,Rash,Unknown - Patient states they do not know rxn details High 09/05/2014 Sulfa Drugs Shortness of breath,Rash,Unknown - Patient states they do not know rxn details High 09/05/2014 Wound Dressing Adhesive Rash Low 09/06/2014 blisters Medications cholecalciferol (Vitamin D-3) 1.25 MG (58316 UT) capsule TAKE 2 CAPSULE Weekly 11/06/2020 Active albuterol 108 (90 Base) MCG/ACT inhaler INHALE 1 TO 2 PUFFS EVERY 6 HOURS NEEDED. 11/06/2020 Active levothyroxine (Synthroid, Levoxyl) 175 MCG tablet Take 175 mcg by mouth 1 (one) time each day. 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 Cancer Staging:Clinical stage from 10/03/2021:Stage I(ycT1a, ycN0, cM0, Age at diagnosis: < 55 years) - Signed by Chuck Castro MD on 10/04/2021 Osteoarthritis 04/03/2017 Obesity, Class II, BMI 35-39.9 04/03/2017 Irritable bowel syndrome 04/03/2017 Glucose intolerance (impaired glucose tolerance) 04/03/2017 Chronic GERD 04/03/2017 Anxiety disorder 04/03/2017 Sleep disorder breathing 11/13/2015 Resolved Problems Problem Noted Date Diagnosed Date Resolved Date Allergic rhinitis 04/03/2017 10/24/2022 Immunizations Immunization Administration Dates Next Due Influenza, injectable, quadrivalent 04/09/2018 Tdap 04/09/2018 Family History Medical History Relation Name Comments Breast cancer Cousin Conversions - Other Father mitral r egurgitation Hypertension Father Thyroid cancer Mother Breast cancer Mother's Sister Diabetes Other 1 Hypertension Other 2 Relation Name Status Comments Cousin Alive Father Mother Mother's Sister Alive Other 1 Other 2 Social History Tobacco Use Types Packs/Day Years Used Date Smoking Tobacco: Never Smokeless Tobacco: Never Tobacco Cessation:Counseling Given: Not Answered Alcohol Use Standard Drinks/Week Comments Yes 0 (1 standard drink = 0.6 oz pure alcohol) Alcoholic Drinks/day: Social alcohol use Education Answer Date Recorded What is the highest level of school you have completed or the highest degree you have received? 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 Not on file Not on file Not on bette e Last Filed Vital Signs Vital Sign Reading Time Taken Comments Blood Pressure 148/92 04/04/2022 2:48 PM EDT Pulse 77 04/04/2022 2:48 PM EDT Temperature 36.6 C (97.9 F) 11/06/2020 12:52 PM EDT Respiratory Rate 18 04/04/2022 2:48 PM EDT Oxygen Saturation 99% 04/04/2022 2:48 PM EDT Inhaled Oxygen Concentration - - Weight 112 kg (248 lb) 04/07/2023 12:15 PM EDT Height 170.2 cm (5' 7 ) 04/07/2023 12:15 PM EDT Body Mass Index 38.84 04/07/2023 12:15 PM EDT Plan of Treatment Health Maintenance Due Date Last Done Comments [facility]-Depression Screening 1975 [facility]-HIV Screening 1975 [facility]-Hepatitis C Screening 1975 [facility]-/Child/Adol SDOH Screenings 1975 [id number] Vaccine (#1) 02/15/1980 [facility]-Obesity Intervention 1981 [facility]- SDOH Screenings 1993 [facility]-Adult SDOH Screenings 1993 [facility]-Hepatitis B Vaccines (1 of 3 - 19+ 3-dose series) 1994 [facility]-Pneumococcal Vaccine: Pediatrics (0 to 5 Years) and At-Risk Patients (6 to 49 Years) (1 of 2 - PCV) 1994 [facility]-Zoster Vaccines (1 of 2) 1994 CT Colonography 02/15/2020 Colonoscopy 02/15/2020 FIT-DNA 02/15/2020 FIT 02/15/2020 FOBT 02/15/2020 Sigmoidoscopy 02/15/2020 [facility]-Colorectal Cancer Screening 02/15/2020 [facility]-Influenza Vaccine (Seas[place] n Ended) 2025 04/09/2018 [facility]-DTaP,Tdap,and Td Vaccine s (2 - Td or Tdap) 04/09/2028 04/09/2018 HPV Vaccines Aged Out No longer eligi ble based on patient's age to complete this topic [facility]-HIB Vaccines Aged Out No longer e ligible based on patient's age to complete this topic [facility]-Hepatitis A Vaccines Aged Out No longer eligible based on patient's age to complete this topic [facility]-IPV Vaccines Aged Out No longer e ligible based on patient's age to complete this topic [facility]-Rotavirus Vaccines Aged Out No lo nger eligible based on patient's age to complete this topic Insurance [employer] Care Teams Sales And Marketing Professional Relationship Specialty Start Date End Date Esme Samano APRN [address] [place] [address] PCP - General 10/04/21
--- OUTSIDE RECORDS SUMMARY | 2024-12-23 13:21 | XMS_ITS | Continuity of Care Document ---
Author Organization [facility] & [facility]ly [facility] Address 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 Plan of Treatment Reminders Order Date Submit Date Provider Last Modified By Organization Details Last Modified Time Details Appointments OV EST 20 2024 03:20P M HONORIO Chambers Not available Not available Not available Lab None recorded. Referral None recorded. Procedures None recorded. Surgeries None recorded. Imaging None recorded. Medication Orders Qsymia 7.5 mg-46 mg capsule, extended release 2024 025 [facility], [address] [place] [address], [address], [place], [address], 12/20/2024 12:48:42 Patient TargetsNo targets recorded. Patient InstructionsNo instructions recorded. Reason for Referral None Reported. Problems Name Problem SNOMED Code Status Onset Date Resolution Date Notes Provider Name and Address Organization Details Recorded Time High hemoglobin A1c level 610559447 Active 2024 HONORIO Chambers [address], [place], [address] , [facility] & [place] 15:05:26 Hypertrigl yceridemia 796477332 Active 2024 HONORIO Chambers [address], [place], [address] , [facility] & [place] 15:05:32 Body mass index 40+ - severely obese 777305327 Active 2024 HONORIO Chambers [address], [place], [address] , [place] - [facility] - [place] & [place] 5 15:05:38 Severe obesity 4939209095909 4 Active 2024 HONORIO Chambers [address], [place], [address] , [place] - [facility] - [place] & [place] 5 15:35:15 Increased blood pressure 44501763 Active 2024 HONORIO Chambers [address], [place], [address] , [place] [facility] [place] & [place] 5 14:31:03 Laryngopha ryngeal reflux 401921198 Active 2023 Fercho Mary PA-C [address], [place], [address] , [place] - [facility] - [place] & [place] 4 14:49:38 Bile acid malabsorpt ion syndrome 75244710 Active 2023 Fercho Mary PA-C [address] , [place], [address] , [place] [facility] [place] & [place] 4 14:50:19 Morbid obesity 933808027 Active [address], [place], [address] , [place] - [facility] & [place] 4 14:15:14 Hypothyroi dism 97192168 Active 2023 HONORIO Chambers [address], [place], [address] , [place] - [facility] & [place] 4 14:31:04 Prediabete s 678427216 Active 2023 HONORIO Chambers [address], [place], [address] , [place] [facility] & [place] 08:49:25 Problem Notes None recorded. Procedures Surgical History Date Name Laterality Status Provider Name and Address Organization Details Recorded Time section completed Carmenpretty Tirado [facility] & [place] 02/12/2024 13:50:12 Total Hysterectomy completed Carmenpretty PRICE [facility] & [place] 02/12/2024 13:50:19 procedure on urinary bladder completed [facility] ALBERT [facility] & [place] 02/12/2024 13:50:[address], [place], [place], [address] [place] [address], [facility] & [place] 02/12/2024 14:03:53 Knee Surgery completed [address], [place], [place], [address] [place] [address], [facility] & [place] 02/12/2024 14:04:05 [address]ole[address]ectomy completed [address], [place], [address] [place] [address], [facility] & [place] 02/12/2024 14:03:21 Imaging Results None recorded. Procedure Notes None recorded. Medical Equipment None Reported. Allergies Allergen ID Allergen Name Allergen Category Reaction Reaction Severity Criticality Documentation Date Start Date Code Code System Note Provider Name and Address Organization Details Recorded Time 459634 Substance with sulfonami de structure and antibacte rial mechanism of action (substanc e) medicatio n Not available Not available Not available 10/29/2023 31704 8003 SNOMED Quyen mcqueen ALBERT SHAH [facility] & [place] 14:15:15 484488 Product containin g penicilli n (product) medicatio n Not available Not available Not available 10/29/2023 67186 8001 SNOMED Alcondesmonderinn Schmidt charisse ALBERT Quiles NANCY [facility] & [place] 14:15:25 Medications Name Sig Start Date Stop Date Status Note LastModified by Organization Details LastModified Time Miralax 17 gram oral powder packet Take 5 packets 3 times a day by oral route as directed for 1 day. 02/11 completed Not Available Not Available Not Available methocarbam ol 500 mg tablet TAKE 1 TABLET BY MOUTH THREE TIMES DAILY NEEDED FOR MUSCLE SPASM active Not Available Not Available No t Available levothyroxi ne 175 mcg tablet 09/27 completed Not Available Not Available Not Available promethazin e-DM 6.25 mg-15 mg/5 mL oral syrup TAKE 5 ML BY MOUTH EVERY 6 HOURS NEEDED FOR COUGH 02/11 completed Not Available Not Available Not Available doxycycline hyclate 100 mg capsule TAKE 1 CAPSULE BY MOUTH TWICE DAILY 02/11 completed Not Available Not Available Not Available clindamycin HCl 300 mg capsule TAKE 1 CAPSULE BY MOUTH THREE TIMES DAILY 02/11 completed Not Available Not Available Not Available cetirizine 10 mg tablet active Not Available Not Available Not Available azithromyci n 250 mg tablet TAKE 2 TABLETS BY MOUTH ON DAY 1, AND THEN TAKE 1 TABLET BY MOUTH ONCE A DAY ON DAY 2 THROUGH DAY 5 02/11 completed Not Available Not Available Not Available citalopram 10 mg tablet 10/28 completed Not Available Not Available Not Available famotidine 40 mg tablet 02/11 completed Not Available Not Available Not Available prednisone 20 mg tablet TAKE 1 TABLET BY MOUTH TWICE DAILY 02/11 completed Not Available Not Available Not Available omeprazole 40 mg capsule,del ayed release 02/11 completed Not Available Not Available Not Available levothyroxi ne 25 mcg tablet TAKE 1 TABLET BY MOUTH EVERY MORNING ON an EMPTY stomach active Not Available Not Available No t Available montelukast 10 mg tablet 02/11 completed Not Available Not Available Not Available levothyroxi ne 200 mcg tablet TAKE 1 TABLET BY MOUTH EVERY MORNING ON an EMPTY stomach active Not Available Not Available No t Available ergocalcife rol (vitamin D2) 1,250 mcg (50,000 unit) capsule 02/11 completed Not Available Not Available Not Available polyethylen e glycol 3350 17 gram/dose oral powder 02/11 completed Not Available Not Available Not Available methylpredn isolone 4 mg tablets in a dose pack TAKE BY MOUTH DIRECTED ON INSIDE OF PACKAGE 02/11 completed Not Available Not Available Not Available albuterol sulfate HFA 90 mcg/actuati on aerosol inhaler INHALE 2 PUFFS BY MOUTH 4 TIMES DAILY NEEDED FOR WHEEZING active Not Available Not Available No t Available bromphenira mine-pseudo ephedrine-D M 2 mg-30 mg-10 mg/5 mL oral syrup 02/11 completed Not Available Not Available Not Available cefdinir 300 mg capsule TAKE 1 CAPSULE BY MOUTH TWICE DAILY FOR 7 DAYS 12/06 completed Not Available Not Available Not Available fluticasone propionate 50 mcg/actuati on nasal spray,suspe nsion USE 1 TO 2 SPRAY(S) IN EACH NOSTRIL ONCE DAILY 02/11 completed Not Available Not Available Not Available colestipol 1 gram tablet TAKE TWO TABLETS BY MOUTH 2 TIMES A DAY. TAKE OTHER MEDICATIO NS AT LEAST 1 HOUR BEFORE OR 4 HOURS AFTER THIS MEDICATIO N. active Not Available Not Available No t Available loratadine 10 mg tablet 02/11 completed Not Available Not Available Not Available bupropion HCl XL 150 mg 24 hr tablet, extended release TAKE ONE TABLET BY MOUTH ONCE A DAY active Not Available Not Available No t Available dexlansopra zole 60 mg capsule,bip hase delayed release TAKE 1 CAPSULE BY MOUTH ONCE A DAY active Not Available Not Available No t Available Qsymia 3.75 mg-23 mg capsule, extended release Take 1 capsule every day by oral route for 14 days. 12/06 completed Not Available Not Available Not Available Qsymia 7.5 mg-46 mg capsule, extended release Take 1 capsule every day by oral route for 30 days. 2024 active Not Available Not Available Not Avai lable Ozempic 0.25 mg or 0.5 mg (2 mg/1.5 mL) subcutaneou s pen injector Inject 0.25 mg every week by subcutane ous route. 09/27 completed Not Available Not Available Not Available Wegovy 0.5 mg/0.5 mL subcutaneou s pen injector Inject 0.5 mL by subcutane ous route for 28 days. 09/27 completed Not Available Not Available Not Available Ozempic 0.25 mg or 0.5 mg (2 mg/3 mL) subcutaneou s pen injector Inject 0.25 mg every week by subcutane ous route. 10/28 completed Not Available Not Available Not Available Vitals Date Recorded Body height Body mass index (BMI) Body weight Body temperature Heart rate Systolic blood pressure Diastolic blood pressure Provider Name and Address Organization Details Last Updated DateTime 170.18 cm 41.3 kg/m2 804351. 31 g 97.6 [degF] 94 /min 141 mm[Hg] 98 mm[Hg] Leanna Harris [facility] & [place] 15:04:41 Social History Question Answer Notes LastModified by Kidaro Details LastModified Time Tobacco Smoking Status Never Smoker Quyen Schmidt null, [facility] & [place] 10/29/2023 14:16:51 What Is Your Level Of Caffeine Consumption? Moderate [email or web address] Information not available 10/29/2023 Sex: Unknown Functional Status Question Answer Note LastModified by [employer] Details LastModified Time Do you use any illicit or recreational drugs? No Information not available 10/29/2023 Do you or have you ever used any other forms of tobacco or nicotine? No [email or web address] Information not available 10/29/2023 What is your level of alcohol consumption? Occasional Information not available 10/29/2023 Mental Status None recorded. Family History Relationship Description Onset Age of this Age Resolved Age Notes LastModified by Organization Details LastModified Time Mother Allergy pt. added direct ly (09/08) API-13 Not available 09/09/2023 14:12:53 Mother Gastroesopha geal reflux disease pt. added direct ly (09/08) API-13 Not available 09/09/2023 14:13:47 Mother Disorder of thyroid gland pt. added direct ly (09/08) API-13 Not available 09/09/2023 14:15:32 Daughter Allergy pt. added direct ly (09/08) API-13 Not available 09/09/2023 14:12:54 Daughter Disorder of thyroid gland pt. added direct ly (09/24) API-13 Not available 09/24/2024 14:43:08 Maternal Grandmother Allergy pt. added direct ly (09/08) API-13 Not available 09/09/2023 14:12:54 Maternal Grandmother Hearing loss pt. added direct ly (09/08) API-13 Not available 09/09/2023 14:14:11 Maternal Grandmother Hypertensive disorder pt. added direct ly (09/08) API-13 Not available 09/09/2023 14:14:44 Maternal Grandmother Kidney disease pt. added direct ly (09/08) API-13 Not available 09/09/2023 14:14:58 Maternal Grandmother Cerebrovascu lar accident pt. added direct ly (09/08) API-13 Not available 09/09/2023 14:15:20 Maternal Grandfather Disease of liver pt. added direct ly (09/08) API-13 Not available 09/09/2023 14:13:19 Maternal Grandfather Hearing loss pt. added direct ly (09/08) API-13 Not available 09/09/2023 14:14:11 Maternal Grandfather Cerebrovascu lar accident pt. added direct ly (09/08) API-13 Not available 09/09/2023 14:15:20 Paternal Grandmother Disease of liver pt. added direct ly (09/08) API-13 Not available 09/09/2023 14:13:19 Maternal Aunt Disorder of endocrine system pt. added direct ly (09/08) API-13 Not available 09/09/2023 14:13:36 Father Heart disease pt. added direct ly (09/08) API-13 Not available 09/09/2023 14:14:27 Father Hypertensive disorder pt. added direct ly (09/08) API-13 Not available 09/09/2023 14:14:44 Medical History Condition Response Diabetes Y Anemia Y Sleep Apnea N High Cholesterol N Hepatitis N Liver Disease N Heart Disease N Cancer Y Kidney Disease N Gynecological HistoryNo gynecological history recorded. Obstetrics History GPAL:G 0 P 0 0 0 0 Past Encounters Encounter ID Performer Location Encounter Start Date Encounter Closed Date Diagnosis/Indication Diagnosis SNOMED-CT Code Diagnosis ICD10 Code Diagnosis Note [id number] HONORIO Chambers [facility] [address] [place] [address] 12/06/2024 14:50:05 12/06/2024 15:30:50 Severe obesity 3390495294 9104 E66.813 Z68.41 E66.01 Patient is to continue current dose of Qsymia 7.5/46mg daily.Enco uraged patient to stay mindful of decreased hunger and increased satiety. Expect continued weight loss with caloric control.En couraged patient to focus on healthy high-prote in diet. Encouraged patient to track carbs calories and protein. Discussed 12-1300 calories daily and 70 80 g of protein daily Advised 4 small meals daily consisting of 300-325 calories, 15- 20 g of protein in less than 25 carbs. Again discussed weight loss surgeries today with patient.Ad vised current BMI she is a good candidate for sleeve gastrectom y. Patient wishes to continue nonsurgica l medical weight loss at this time.We will have patient follow up in 4 weeks Health Concerns Section Related Observation LastModified by Organization Detai ls LastModified Time None Recorded Concern Status LastModified by Organization Details LastModified Time None Recorded Payers Encounter Date Sequence Insurance Name Policy Number Policy Guajardo Covered Member ID Guajardo Member ID Guarantor Name 12/06/2024 1 [place] [id number] Josiah Amato [id number] 28 Medina Amato Notes Date Note Type Note Provider Name and Address Organization Details Recorded Time 5 text/html Patient returns to clinic today for follow-up medical weight loss. She was started on Qsymia last office visit. Patient states she can tell this medication is helping her with hunger. She has less food DrKei Has noticed increased satiety. She is able to keep her calories 12-1300 daily. She is still struggling with her thyroid. She states they are adjusting medication but her last TSH was still 17.Review of in body shows patient has lost 6 lb of which 1.6 skeletal muscle mass since last office visit September. Current BMI is 41.3 with 51.4% body fat basal metabolic rate 1627PMH HLD hypertriglycerides elevated A1c 6.0. Awaiting home sleep study for obstructive sleep apnea @10/28/24 OV - Patient presents today again as medical weight loss patient. She was unable to obtain approval for Ozempic. She wishes to try another medical weight loss options. She is noticing increased joint pain with increased weight. Patient has gained another 3 lb. Current BMI is now 42.6.She tells me she has been more diligent about healthy eating choices. She is prioritizing protein. She has not tracking carbs calories and protein howeverPMH HLD hypertriglycerides elevated A1c 6.0Patient is still awaiting obstructive sleep apnea testing.09/27/24 OV -Attempt was made start patient on Wegovy at last office visit. Patient did not insurance coverage for anti obesity medications. She requested we attempt prior authorization for Ozempic. We were awaiting lab results to complete this prior authorizationPatient returns to clinic today stating she has worsening labs and is wanting to pursue Ozempic again. Since last office visit patient has gained 13 lb BMI is now 42.2 with 51.3% body fat. Patient reports increased knee pain and dyspnea on exertion with addition gain. She reports a fasting glucose of 112 hemoglobin A1c at 6.0 elevated triglycerides at 263. She also has new diagnosis of hyperlipidemia. She states PCP is concerned regarding obstructive sleep apnea and she has ordered a home sleep study.Patient does have history of reflux disease. She is taking daily PPI. Patient states she recently had upper and lower endoscopy with @02/12/24 OV - 48-year-old female new patient to our practice presents today to discuss medical weight loss options. Patient states her mother had hernia repair with us and was started on medical weight loss and has done well. Currently patient's BMI is 40.2. Patient states she is already made some changes to her diet to see weight loss. She is attempting to decrease sugar in her diet. She does not track carbs calories or protein.Past medical history is positive for papillary thyroid cancer now status post thyroidectomy, irritable bowel syndrome. Patient states she was started on colestipol but has had to use this less and less. She does take Dexilant for reflux diseaseIn body: BMI 40.2 with 50.2% body fat skeletal muscle mass 71.7 lb which is 122% predicted visceral level is 20 basal metabolic rate 1622 HONORIO Chambers [address], [place], [address], [facility] [place] - [place] & [place] 12/06/2024 15:37:20 OBGyn Episode No OBEpisode recorded.
--- OUTSIDE RECORDS SUMMARY | 2024-12-23 13:21 | XMS_ITS | Continuity of Care Document ---
Author Organization [facility] Address [address] [place] [address] Care Team Providers Care Auto Service Writer Name Role Phone MARYURI RUIZ Primary Care Provider [phone] Assessment No assessment recorded. Plan of Treatment Reminders Order Date Submit Date Provider Last Modified By Organization Details Last Modified Time Details Appointments OV EST 20 2024 03:20P M HONORIO Chambers Not available Not available Not available Lab None recorded. Referral None recorded. Procedures None recorded. Surgeries None recorded. Imaging None recorded. Medication Orders Qsymia 3.75 mg-23 mg capsule, extended release 2024 025 [facility], [address] [place] [address], [place] Aleshia, [id number], 12/06/2024 15:53:23 Qsymia 7.5 mg-46 mg capsule, extended release 2024 025 [facility], [address] [place] [address], [place], [id number], 11/05/2024 09:39:53 Patient TargetsNo targets recorded. Patient InstructionsNo instructions recorded. Reason for Referral None Reported. Problems Name Problem SNOMED Code Status Onset Date Resolution Date Notes Provider Name and Address Organization Details Recorded Time High hemoglobin A1c level 682433245 Active 2024 HONORIO Chambers [address], [place], [address] , [facility] 03/24/202 5 15:05:26 Hypertrigl yceridemia 706323770 Active 2024 HONORIO Chambers [address], [place], [place], [address] [place] [address] , [place] - [facility] & [place] 5 15:05:32 Body mass index 40+ - severely obese 317664128 Active [address], [place], [place], [address] [place] [address] , [place] - [facility] - [place] & [place] 5 15:05:38 Severe obesity 6945132971501 4 Active [address], [place], [address] [place] [address] , [place] - [facility] - [place] & [place] 5 15:35:15 Increased blood pressure 22935971 Active [address], [place], [address] [place] [address] , [place] - [facility] & [place] 5 14:31:03 Laryngopha ryngeal reflux 100680976 Active 2023 Fercho Mary PA-C [address] , [place] [address] , [place] - [facility] & [place] 4 14:49:38 Bile acid malabsorpt ion syndrome 63497440 Active 2023 Fercho Mary PA-C [address] [place], [place], [address] [place] [address] , [place] - [facility] & [place] 4 14:50:19 Morbid obesity 271334904 Active [address], [place], [address] [place] [address] , [place] - [facility] & [place] 4 14:15:14 Hypothyroi dism 42851409 Active [address], [place], [address] , [place] - [facility] & [place] 14:31:04 Prediabete s 355345896 Active [address], [place], [address] [place] [address] , [facility] & [place] 08:49:25 Problem Notes None recorded. Procedures Surgical History Date Name Laterality Status Provider Name and Address Organization Details Recorded Time section completed Carmen Moncadamp James Y - [facility] & [place] 02/12/2024 13:50:12 Total Hysterectomy completed Carmenpretty PRICE - [facility] & [place] 02/12/2024 13:50:19 procedure on urinary bladder completed Carmen Gonzalez [place] [facility] & [place] 02/12/2024 13:50:[address], [place], [place], [address] [place] [address], [facility] & [place] 02/12/2024 14:03:53 Knee Surgery completed [address], [place], [address] [place] [address], [place] - [facility] & [place] 02/12/2024 14:04:05 [address]ectomy completed [address], [place], [place], [address] [place] [address], [place] [facility] & [place] 02/12/2024 14:03:21 Imaging Results None recorded. Procedure Notes None recorded. Medical Equipment None Reported. Allergies Allergen ID Allergen Name Allergen Category Reaction Reaction Severity Criticality Documentation Date Start Date Code Code System Note Provider Name and Address Organization Details Recorded Time 175228 Substance with sulfonami de structure and antibacte rial mechanism of action (substanc e) medicatio n Not available Not available Not available 10/29/2023 41037 8003 SNOMED Maynorerinn Schmidtjennifer mcqueen [place] - [facility] & [place] 14:15:15 404024 Product containin g penicilli n (product) medicatio n Not available Not available Not available 10/29/2023 56367 8001 SNOMED Maynorerinn Brayan mcqueen, [place] - [facility] - [place] & [place] 14:15:25 Medications Name Sig Start Date Stop [...] Organization Details Last Updated DateTime 170.18 cm 42.6 kg/m2 964741. 48 g 98.5 [degF] 89 /min 149 mm[Hg] 93 mm[Hg] Leanna Harris [facility] & [place] 14:23:58 Social History Question Answer Notes LastModified by [employer] Details LastModified Time Tobacco Smoking Status Never Smoker Alcondesmonderinn Schmidt [facility] & [place] 10/29/2023 14:16:51 What Is Your Level Of Caffeine Consumption? Moderate [email or web address] Information not available 10/29/2023 Sex: Unknown Functional Status Question Answer Note LastModified by [employer] Details LastModified Time Do you use any illicit or recreational drugs? No [email or web address] Information not available 10/29/2023 Do you or have you ever used any other forms of tobacco or nicotine? No [email or web address] Information not available 10/29/2023 What is your level of alcohol consumption? Occasional [email or web address] Information not available 10/29/2023 Mental Status None [...] available 09/09/2023 14:14:44 Medical History Condition Response Cancer Y High Cholesterol N Liver Disease N Kidney Disease N Anemia Y Diabetes Y Sleep Apnea N Hepatitis N Heart Disease N Gynecological HistoryNo gynecological history recorded. Obstetrics History GPAL:G 0 P 0 0 0 0 Past Encounters Encounter ID Performer Location Encounter Start Date Encounter Closed Date Diagnosis/Indication Diagnosis SNOMED-CT Code Diagnosis ICD10 Code Diagnosis Note [id number] HONORIO Chambersnelson n [facility] [address] [facility] [place] [address] 09/27/2024 14:19:52 09/27/2024 15:16:02 High hemoglobin A1c level 002630297 R73.09 Reviewed patient labs on her phone today. She will provide printed copy for chart. Advised patient we will need labs before we can complete prior authorizat ion for OzempicWe will start patient on Ozempic 0.25 mg subQ weekly x4 weeks then increase to 0.5 mg subQ weeklyDisc ussed mechanism of action at length. Patient advised to watch for decreased hunger and increased satiety.Sarahi lang side effect profile with patient today. Advised to report any worsening reflux symptomsFo llow up 4 weeks Hypertriglyceridemia 302 772301 E78.1 Severe obesity 450882109 1 9104 E66.813 E66.01 Z68.41 Encouraged patient to track carbs calories and protein. Discussed 12-1300 calories daily and 70 80 g of protein daily Advised 4 small meals daily consisting of 300-325 calories, 15- 20 g of protein in less than 25 carbs.Long discussion today of [employer] results including PBF(percen t body fat) SMM (skeletal muscle mass) Visceral fat level level BMR Segmental Fat Analysis and Segmental Lean Analysis.E ncouraged pt to take minimal calories as per BMR and to anticipate changes in SMM and PBF values not just total weight. Repeat AUDI in 2-3mth suggested Discussed weight loss surgeries today with patient. Advised current BMI she is a good candidate for sleeve gastrectom y. Patient wishes to look at nonsurgica l medical weight loss options 1st.We will have patient follow up in 4 weeks At [facility] risk of apnea 714822008 Z91.89 Home sleep study has been ordered by patient's PCP [id number] HONORIO Chambers [facility] [address] [facility] [place] [address] 10/28/2024 14:11:34 10/28/2024 14:45:16 High hemoglobin A1c level 888182848 R73.09 Recommend rechecking A1c in 2-3 months Increased blood pressure 81007873 R03.0 Patient advised of elevated blood pressure reading today. She is advised to monitor blood pressure and discussed with PCP Severe obesity 221302006 1 9104 E66.813 E66.01 Z68.41 Discussed out-of-poc ket anti obesity medication options with the patient. She is currently on bupropion and therefore Contrave not ideal. We will start patient on Qsymia. Discussed ramping schedule for this medication .Patient advised to monitor blood pressure as she ramp onto this medication . She is to call for any elevated readings. Encouraged patient to track carbs calories and protein. Discussed 12-1300 calories daily and 70 80 g of protein daily Advised 4 small meals daily consisting of 300-325 calories, 15- 20 g of protein in less than 25 carbs. Discussed weight loss surgeries today with patient.Ad vised current BMI she is a good candidate for sleeve gastrectom y. Patient wishes to look at nonsurgica l medical weight loss options 1st.We will have patient follow up in 4 weeks Health Concerns Section Related Observation LastModified by Organization Detai ls LastModified Time None Recorded Concern Status LastModified by Organization Details LastModified Time None Recorded Payers Encounter Date Sequence Insurance Name Policy Number Policy Guajardo Covered Member ID Guajardo Member ID Guarantor Name 10/28/2024 1 [place] [employer] [place] [id number] 4 Josiah Amato [id number] 28 Medina Amato Notes Date Note Type Note Provider Name and Address Organization Details Recorded Time 5 text/html Patient presents today again as medical weight [...] 6.0Patient is still awaiting obstructive sleep apnea testing. 09/27/24 OV -Attempt was made start patient on [...] visceral level is 20 basal metabolic rate [id number] HONORIO Chambers [address], [place], [address], [place] [facility] - [place] & [place] 10/28/2024 14:48:45 OBGyn Episode No OBEpisode recorded.
--- OUTSIDE RECORDS SUMMARY | 2024-12-23 13:22 | XMS_ITS | Data Portability ---
Author Organization [facility] [place] & PABLO Mcintosh ADMIN Address [address] [place] [id number] Care Team Providers Care Industrial Engineering Technologist Name Role Phone MARYURI RUIZ Primary Care Provider Assessment Encounter Date Assessment Date Assessment LastModified by Organization Details LastModified Time 10/29/2023 10/29/2023 48-year-old male with: 1. Dysphagia: Secondary to esophageal stricture, status post dilation. I suspect she has silent reflux. Continue omeprazole 40 mg once daily. Repeat EGD for dilation as needed. 2. Acid reflux/LPR: Recent EGD indicated a 2 cm hiatal hernia. She notes frequent hoarseness and nocturnal cough. I suspect this is due to silent reflux. She does not have much heartburn. We have discussed trial of dexlansoprazole to see if her extra esophageal manifestations of GERD improved. We have also discussed that she may be a candidate for TIF procedure and she does express some interest. If her symptoms are not improved at follow-up we will plan on proceeding with manometry and pH impedance testing. 3. Chronic diarrhea: Start colestipol 2 g p.o. twice daily. May consider treatment with Xifaxan if ineffective. Follow-up 6 weeks [email or web address] Not available 10/29/2023 17:27:06 Plan of Treatment Reminders Order Date Submit Date Provider Last Modified By Organization Details Last Modified Time Details Appointments OV EST 20 2024 03:20P HONOIRO Hicks Not available Not available Not available Lab None recorded. Referral None recorded. Procedures None recorded. Surgeries None recorded. Imaging None recorded. Medication Orders Qsymia 7.5 mg-46 mg capsule, extended release 2024 025 [facility], [address] [place] [address], Matt [address], [place], [id number], 12/20/2024 12:48:42 Qsymia 3.75 mg-23 mg capsule, extended release 2024 025 [facility], [address] [place] [address], Matt [address], [place], [id number], 12/06/2024 15:53:23 Qsymia 7.5 mg-46 mg capsule, extended release 2024 025 [facility], [address] [place] [address], [facility] 100, [place], [id number], 11/05/2024 09:39:53 Ozempic 0.25 mg or 0.5 mg (2 mg/3 mL) subcutane ous pen injector 2024 025 [facility], [address] [place] [address], [place], [id number], 10/28/2024 14:33:55 Wegovy 0.5 mg/0.5 mL subcutane ous pen injector 2023 025 [facility], [address] [place] [address], [place], [id number], 09/27/2024 14:34:13 dexlansop razole 60 mg capsule,b iphase delayed release 2023 024 [facility], [address] [place] [address], [place], [id number], 10/29/2023 14:53:37 colestipo l 1 gram tablet 2023 024 [facility], [address] [place] [address] [place], [id number], 10/29/2023 14:53:34 Patient TargetsNo targets recorded. Patient InstructionsNo instructions recorded. Reason for Referral None Reported. Problems Name Problem SNOMED Code Status Onset Date Resolution Date Notes Provider Name and Address Organization Details Recorded Time High hemoglobin A1c level 537417154 Active 2024 HONORIO Chambers [address], [place], [address] , [place] - [facility] [place] [facility] [place] 5 15:05:26 Hypertrigl yceridemia 529986190 Active [address], [place], [address] , [place] [facility] [place] [facility] [place] 5 15:05:32 Body mass index 40+ - severely obese 262194950 Active [address], [place], [address] , [place] [facility] [place] 5 15:05:38 Severe obesity 3228810032899 4 Active [address], [place], [address] , [place] [facility] [place] 5 15:35:15 Increased blood pressure 96444070 Active [address], [place], [address] , [place] [facility] [place] 5 14:31:03 Laryngopha ryngeal reflux 862466289 Active 2023 Fercho Mary PA-C [address], [place], [address] , [place] [facility] [place] [facility] [place] 4 14:49:38 Bile acid malabsorpt ion syndrome 96050457 Active 2023 Fercho Mary PA-C [address], [place], [address] , [place] [facility] [place] [facility] [place] 4 14:50:19 Morbid obesity 077619477 Active 2023 HONORIO Chambers [address], [place], [address] , [place] - [facility] & [place] 14:15:14 Hypothyroi dism 33203714 Active [address], [place], [address] , [place] - [facility] & [place] 14:31:04 Prediabete s 734499177 Active 2023 HONORIO Chambers [address], [place], [address] , [place] [facility] & [place] 08:49:25 Problem Notes None recorded. Procedures Surgical History Date Name Laterality Status Provider Name and Address Organization Details Recorded Time section completed Carmen James [place] - [facility] & [place] 02/12/2024 13:50:12 Total Hysterectomy completed Carmen Gonzalez [place] - [facility] & [place] 02/12/2024 13:50:19 procedure on urinary bladder completed Carmen Gonzalez [place] - [facility] & [place] 02/12/2024 13:50:[address], [place], [address], [place] - [facility] & [place] 02/12/2024 14:03:53 Knee Surgery completed [address], [place], [address], [place] [facility] & [place] 02/12/2024 14:04:05 [address]ectomy completed [address], [place], [address], [place] [facility] & [place] 02/12/2024 14:03:21 Imaging Results None recorded. Procedure Notes None recorded. Medical Equipment None Reported. Allergies Allergen ID Allergen Name Allergen Category Reaction Reaction Severity Criticality Documentation Date Start Date Code Code System Note Provider Name and Address Organization Details Recorded Time 162794 Substance with sulfonami de structure and antibacte rial mechanism of action (substanc e) medicatio n Not available Not available Not available 10/29/2023 71497 8003 SNOMED ALBERT Phillips [facility] & [place] 4 14:15:15 703081 Product containin g penicilli n (product) medicatio n Not available Not available Not available 10/29/2023 56097 8001 SNOMED AL[facility]ERT Phillips [facility] & [place] 4 14:15:25 Medications Name Sig Start Date Stop [...] Available Vitals Date Recorded Body height Body temperature Heart rate Body mass index (BMI) Body weight Systolic blood pressure Diastolic blood pressure Provider Name and Address Organization Details Last Updated DateTime 5 170.18 cm 97.2 [degF] 84 /min 42.2 kg/m2 283690. 43 g 164 mm[Hg] 88 mm[Hg] Latonya Neymar [facility] & [place] 5 14:30:51 Date Recorded Body weight Body mass index (BMI) Body height Body temperature Oxygen saturation Oxygen saturation in Arterial blood by Pulse oximetry Heart rate Heart rate Systolic blood pressure Diastolic blood pressure Provider Name and Address Organization Details Last Updated DateTime 4 636408. 34 g 38.9 kg/m2 170.18 cm 97.7 [degF] 98 % 98 % 64 /min 68 /min 129 mm[Hg] 87 mm[Hg] Quyen Scmhidt [place] - [place] [facility] & [place] 4 14:14:58 Date Recorded Body height Body mass index (BMI) Body weight Body temperature Heart rate Systolic blood pressure Diastolic blood pressure Provider Name and Address Organization Details Last Updated DateTime 5 170.18 cm 42.6 kg/m2 672618. 48 g 98.5 [degF] 89 /min 149 mm[Hg] 93 mm[Hg] Leanna Harris [place] - [facility] & [place] 5 14:23:58 Date Recorded Body height Body mass index (BMI) Body weight Body temperature Heart rate Systolic blood pressure Diastolic blood pressure Provider Name and Address Organization Details Last Updated DateTime 5 170.18 cm 41.3 kg/m2 016939. 31 g 97.6 [degF] 94 /min 141 mm[Hg] 98 mm[Hg] Leanna Harris [facility] & [place] 5 15:04:41 Date Recorded Body height Body mass index (BMI) Body weight Heart rate Body temperature Systolic blood pressure Diastolic blood pressure Provider Name and Address Organization Details Last Updated DateTime 4 170.18 cm 40.2 kg/m2 665029. 52 g 91 /min 97.3 [degF] 123 mm[Hg] 86 mm[Hg] Carmen Gonzalez [facility] & [place] 4 13:52:41 Social History Question Answer Notes LastModified by [email or web address] Details LastModified Time Tobacco Smoking Status Never Smoker Maynorerinn [facility], [facility] & [place] 10/29/2023 14:16:51 What Is Your Level Of Caffeine Consumption? Moderate Information not available 10/29/2023 Sex: Unknown Functional Status Question Answer Note LastModified by [email or web address] Details LastModified Time Do you use any illicit or recreational drugs? No Information not available 10/29/2023 Do you or have you ever used any other forms of tobacco or nicotine? No [email or web address] Information not available 10/29/2023 What is your level of alcohol consumption? Occasional [email or web address] Information not available 10/29/2023 Mental Status None [...] SNOMED-CT Code Diagnosis ICD10 Code Diagnosis Note [id number] Fercho Mary PA-C [facility] [address] [facility] [address] [place] [address] 10/29/2023 14:02:15 10/29/2023 14:48:55 Laryngopharyngeal reflux 184739488 K21.9 Bile acid malabsorption syndrome 56362816 E78.70 [id number] HONORIO Chambers [facility] Bariatric s and Adv Surg [address] [facility] [address] [facility] [address] 02/12/2024 13:33:46 02/12/2024 15:27:11 Morbid obesity 574615065 E66.01 Medical weight loss medication s discussed at length with patient today.We will start patient on Wegovy 0.25mg subcu weekly. Patient was given samples of this medication . We will send prescripti on for next dose 0.5 mg subQ weekly.Dis cussed mechanism of action at length. Patient advised to watch for decreased hunger and increased satiety.En couraged patient to track carbs calories and protein. Discussed 12-1300 calories daily and 70 80 g of protein daily Advised 4 small meals daily consisting of 300-325 calories, 15- 20 g of protein in less than 25 carbs. Encouraged patient to shift away from soda/Tea and focus on increased hydration. Long discussion today of [employer] results including PBF(percen t body fat) SMM (skeletal muscle mass) Visceral fat level level BMR Segmental Fat Analysis and Segmental Lean Analysis.E ncouraged pt to take minimal calories as per BMR and to anticipate changes in SMM and PBF values not just total weight. Repeat AUDI in 2-3mth suggested Discussed side effect profile of this medication to include delay of GI transit time which may exacerbate reflux and GI issues. 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 [id number] HONORIO Chamberstow n [facility] [address] [facility] [address] [facility] [place] [address] 09/27/2024 14:19:52 09/27/2024 15:16:02 High hemoglobin A1c level 572315277 R73.09 Reviewed patient labs on her phone [...] symptomsFo llow up 4 weeks Hypertriglyceridemia 302 202861 E78.1 Severe obesity 115830492 1 9104 E66.813 E66.01 Z68.41 Encouraged patient [...] patient follow up in 4 weeks [facility] risk of apnea 527601521 Z91.89 Home sleep study has been ordered by patient's PCP [id number] HONORIO Chambers [facility] Bariatric s and Adv Surg [address] [facility] [address] [facility] [place] [address] 10/28/2024 14:11:34 10/28/2024 14:45:16 High hemoglobin A1c level 730412633 R73.09 Recommend rechecking A1c in 2-3 months Increased blood pressure 55265850 R03.0 Patient advised of elevated blood pressure reading today. She is advised to monitor blood pressure and discussed with PCP Severe obesity 726001104 1 9104 E66.813 E66.01 Z68.41 Discussed out-of-poc [...] have patient follow up in 4 weeks [id number] HONORIO Chambers [facility] Bariatric s and Adv Surg [address] [facility] [address] [facility] [place] [address] 12/06/2024 14:50:05 12/06/2024 15:30:50 Severe obesity 1568257293 9104 E66.813 Z68.41 E66.01 Patient is to [...] by Organization Details LastModified Time None Recorded Advance Directives Directive None Recorded Payers Insurance Date Sequence Insurance Name Policy Number Policy Guajardo Covered Member ID Guajardo Member ID Guarantor Name 12/05/2024 1 [place] [id number] Josiah Amato [id number] Medina Amato Notes Date Note Type Note Provider Name and Address Organization Details Recorded Time 4 text/html Ms. Amato is a very pleasant 48-year-old female who presents to the office today for procedure follow-up. She underwent EGD and colonoscopy in July. She was noted to have a esophageal stricture that was dilated to 20 mm. GE junction biopsy was consistent with reflux esophagitis without intestinal metaplasia. She was also noted to have a 2 cm hiatal hernia. She would several polyps resected on colonoscopy with path consistent with tubular adenomas and 1 hyperplastic polyp. She was recommended to undergo repeat surveillance colonoscopy in 3 years. Today, she reports minimal dysphagia. She complains of frequent nocturnal cough and hoarseness. She is taking omeprazole 40 mg p.o. once daily. She denies heartburn. She notes a history of irritable bowel syndrome with diarrhea. Diarrhea has been worse following cholecystectomy. She notes postprandial fecal urgency. Fercho Mary PA-C [address], [place], [address], [facility] & [place] 10/29/2023 17:27:19 4 text/html 48-year-old female new patient to our practice [...] less. She does take Dexilant for reflux disease In body today shows BMI 40.2 with 50.2% body fat skeletal muscle mass 71.7 lb which is 122% predicted visceral level is 20 basal metabolic rate 1622 HONORIO Chambers [address], [place], [address], [facility] & [place] 02/12/2024 14:32:53 5 text/html Attempt was made start patient on Wegovy at [...] 20 basal metabolic rate 1622 HONORIO Chambers [address], [place], [address], [place] - [place] - [place] & [place] 09/27/2024 15:11:46 5 text/html Patient presents today again as [...] 20 basal metabolic rate 1622 HONORIO Chambers [address], [place], [address], [facility] - [place] - [place] & [place] 10/28/2024 14:48:45 5 text/html Patient returns to clinic today for follow-up medical weight loss. She was started on Qsymia last office visit. Patient states she can tell this medication is helping her with hunger. She has less food Has noticed increased satiety. She is able [...] 20 basal metabolic rate 1622 HONORIO Chambers [address], [place], [address], [facility] - [place] & [place] 12/06/2024 15:37:20 OBGyn Episode No OBEpisode recorded.
== END ==
LOC: SL 13:20
PROVIDERS: PCP Nurse Practitioner Family; Visit Provider Nurse Practitioner Family
DX: G47.33 Obstructive sleep apnea (adult) (pediatric) (principal); G47.36 Sleep related hypoventilation in conditions classified elsewhere; E66.9 Obesity, unspecified; R53.82 Chronic fatigue, unspecified
CPT/HCPCS: G0399

== ENCOUNTER 2025-04-07 16:05 | Outpatient (CLI) | payer BC, SELFPAY ==
--- OUTSIDE RECORDS SUMMARY | 2025-04-07 16:07 | XMS_ITS ---
Author Organization [facility] Address [address] [place] [address] Phone Care Team Providers Care Migratory Farm Hand Name Role Phone Esme Samano APRN Primary Care Provid er Unavailable Duglas Brich MD Unavailable [phone] Problems Includes: Active, inactive, and resolved Problems All Visits Onset Date Resolved Date Provider Condition S tatus Joint Pain Shoulder Right 07/31/2022 Duglas brooks MD Active Last Documented On 3 10:47AM ; [facility], [facility] Plan of Treatment Instructions to patient Lose weight Last Documented On 3 10:49AM ; [facility], [facility] Assessments Includes: Assessments for all patient encounters Findings Encounter Date Overweight Physician Specified with Duglas Birch MD 07/31/2022 Last Documented On 4 8:07AM ; [facility], [facility] Instructions Includes: Instructions for all patient encounters Instructions to patient Lose weight Last Documented On 3 10:49AM ; [facility], [facility] Medical Equipment - Implanted Devices Includes: Current and historical Devices No Medical Equipment Recorded Medications Includes: Current and historical Medications Current Medications (continue as prescribed) Levothyroxine Sodium 175 MCG Oral Tablet 07/12/2022 Provider: Esme bailey APRN Diagnosis: Last Documented On 3 10:48AM By Paul Yoo ; [facility], [facility] Past Medications on file Meloxicam 7.5 MG Oral Tablet 08/03/2022 - 09/02/2022 Hortencia carrera: Duglas Birch MD Diagnosis: once a day Last Documented On 3 12:19PM By Latoyna Bliss ; [facility], [facility] Benzonatate 100 MG Oral Capsule 06/08/2022 - 3 Provider: Diagnosis: Last Documented On 3 10:54AM By Paul Yoo ; [facility], [facility] methylPREDNISolone 4 MG Oral Tablet Therapy Pack 06/08/2022 - 07/31/2022 Provider: Diagnosis: Last Documented On 3 10:54AM By Paul Yoo ; [facility], [facility] methylPREDNISolone 4 MG Oral Tablet Therapy Pack 05/24/2022 - 07/31/2022 Provider: Diagnosis: Last Documented On 3 10:54AM By Paul Yoo ; [facility], [facility] Medications Administered Includes: Administered Medications in patient's chart No Administered Medications Recorded Results Includes: Results from 04/07/2024 through 04/07/2025 No Results Recorded For Specified Dates History of Present Illness History of Present Illness not supported for this document type No History of Present Illness Recorded Social History Description Last Updated Caffeine use 07/31/2022 Last Documented On 4 8:07AM ; [facility], [facility] Exercising regularly 07/31/2022 Last Documented On 4 8:07AM ; [facility], [facility] Tobacco non-user 07/31/2022 Last Documented On 4 8:07AM ; [facility], [facility] No recent change in diet 07/31/2022 Last Documented On 4 8:07AM ; [facility], [facility] Not a current smoker. 07/31/2022 Last Documented On 4 8:07AM ; [facility], [facility] Not using alcohol 07/31/2022 Last Documented On 4 8:07AM ; [facility], [facility] Not using drugs 07/31/2022 Last Documented On 4 8:07AM ; [facility], [facility] Smoking Status Unknown Medical History Includes: Medical History in patient's chart Description Last Updated History of Anemia 07/31/2022 Last Documented On 4 8:07AM ; [facility], [facility] History of arthritis 07/31/2022 Last Documented On 4 8:07AM ; [facility], [facility] History of asthma 07/31/2022 Last Documented On 4 8:07AM ; [facility], [facility] History of Heartburn / Acid Reflux 07/31 Last Documented On 4 8:07AM ; [facility] History of History of Cancer 07/31/2022 Last Documented On 4 8:07AM ; [facility] History of Thyroid Disease 07/31/2022 Last Documented On 4 8:07AM ; [facility] Family History Includes: Family History in patient's chart Description Last Updated Diabetes mellitus 07/31/2022 Last Documented On 4 8:07AM ; [facility] Family history of cancer 07/31/2022 Last Documented On 4 8:07AM ; [facility] Family history of heart disease 07/31/19 23 Last Documented On 4 8:07AM ; [facility] Family history of rheumatoid arthritis 0 07/31/2022 Last Documented On 4 8:07AM ; [facility] Review of Systems Review of Systems not supported for this document type No Review of Systems Recorded Mental Status Description Anxiety Functional Status No Functional Status Recorded Physical Exam Physical Exam not supported for this document type No Physical Exam Recorded Allergies Includes: Active, inactive, and resolved Allergies Substance Type Reaction Onset Date Resolved Date Statu s adhesive tape Allergy 07/31/2022 Activ e Last Documented On 3 10:55AM ; [facility], [facility] Insurance Includes: Active Insurance Policies Plan Name Member ID Group # Subscriber Relationship Effect sparkle Dates 1 - [facility] [id number] RILEY YARBROUGH 07/07/2022 - Unknown Clinical Notes Includes: Signed Clinical Notes starting from 06/20/2022 No Clinical Notes Recorded
--- OUTSIDE RECORDS SUMMARY | 2025-04-07 16:07 | XMS_ITS ---
Care Plan - [facility], [facility] Created on: April 07, 2025 Medina Amato : 1975 Sex: Female Author Organization [facility] Address [address] [place] [address] Phone Care Team Providers Care Infantry Unit Leader Name Role Phone Esme Samano APRN Primary Care Provid er Unavailable Queta MURPHY, Duglas Unavailable [phone]
--- OUTSIDE RECORDS SUMMARY | 2025-04-07 16:07 | XMS_ITS | Clinical Summary ---
Author Organization [facility] , [facility] Address [address] [address] Phone Care Team Providers Care Interior Design Project Manager Name Role Phone Esme Samano APRN Primary Care Provid er Unavailable Queta MURPHY, Duglas Unavailable [phone] Reason for Visit and Chief Complaint The Chief Complaint is: Right shoulder pain Problems Includes: Problems addressed during this encounter and other active Problems Current Visit Onset Date Resolved Date Provider Nas plasencia Status Joint Pain Shoulder Right 07/31/2022 Duglas brooks MD Active Last Documented On 10:47AM ; [facility] Plan of Treatment Medina presents with a physical exam supportive of right proximal biceps tendinopathy and rotator cuff impingement. We obtained x-rays and reviewed the images with the patient. We discussed the risks and benefits of a subacromial steroid injection and she agreed to proceed. We will provide her with a prescription for Meloxicam 7.5mg x 1 tablet daily and a physical therapy order for biceps tendinopathy and rotator cuff impingement protocol. She can modify her activities as tolerated and we will see her back for a clinical re-evaluation in 6 weeks. RIGHT SHOULDER: The risks and benefits of a subacromial injection were discussed. I answered all of the patient's questions and they verbally consented to the procedure. The skin of the posterior shoulder over the injection site was prepped with isopropyl alcohol and allowed to dry. Utilizing a sterile needle, I injected 2 cc of betamethasone and 8 cc of 1% lidocaine into the subacromial bursa. The needle was withdrawn and the injection site was dressed with a sterile Band-Aid. The patient tolerated the procedure well without any apparent complication. Post-injection instructions were discussed. - Last Documented On 09/22/2023 8:07AM ; [facility] Pending Tests Order Diagnosis Results Due Ordering Hortencia carrera Therapy - Physical Therapy Shoulder 07/31/22 Duglas Birch MD Last Documented On 3 1:58PM ; [facility] Instructions to patient Lose weight Last Documented On 3 10:49AM ; [facility] Assessments Includes: Assessments from this encounter Findings - Overweight - Last Documented On 09/22/2023 8:07AM ; [facility] Instructions Includes: Instructions from this encounter Instructions to patient Lose weight Last Documented On 3 10:49AM ; [facility] Medical Equipment - Implanted Devices Includes: Current Devices No Medical Equipment Recorded Medications Includes: Medications discussed during this encounter and other current Medications Discontinued / Stopped on this date on 06/08/2022 Benzonatate 100 MG Oral Capsule Provider: Diagnosis: Last Documented On 3 10:54AM By Paul Yoo ; [facility] methylPREDNISolone 4 MG Oral Tablet Therapy Pack Provider: Diagnosis: Last Documented On 3 10:54AM By Paul Yoo ; [facility] methylPREDNISolone 4 MG Oral Tablet Therapy Pack Provider: Diagnosis: Last Documented On 3 10:54AM By Paul Yoo ; [facility] Current Medications (continue as prescribed) Levothyroxine Sodium 175 MCG Oral Tablet 07/12/2022 Provider: Esme bailey CLOTH SANDER Diagnosis: Last Documented On 3 10:48AM By Paul Yoo ; [facility] Past Medications on file Meloxicam 7.5 MG Oral Tablet 08/03/2022 - 09/02/2022 Hortencia carrera: Duglas Birch MD Diagnosis: once a day Last Documented On 3 12:19PM By Latonya Bliss ; [facility] Medications Administered Includes: Administered Medications from this encounter No Administered Medications Recorded Vital Signs Includes: Vital Signs from this encounter Vital Name 07/31/2022 11:12A Blood Pressure Sitting R 145/95 Pulse Rate-Sitting (bpm) 74 Height (in) 67 Weight (lb) 254 Body Mass Index 39.8 Body Surface Area 2.2 Note: bb Last Documented: On 07/31/2022 11:12A M ; [facility] Results Includes: Results discussed during this encounter No Results Recorded For Specified Dates History of Present Illness Includes: History of Present Illness from this encounter HPI Medina Yarbrough is a 47 year old female. - Symptoms Giving away Symptoms better Ice has helped temporarily Symptoms worse lifting arm up, laying on shoulder, and lifting stuff. - Allergy list reviewed - Problem list reviewed - Medication list reviewed - Previous history of new onset pain Injury is not work related or an automotive accident - Patient pain level from 1-10: 7 - No previous treatment. 47-year-old female presents for initial evaluation of atraumatic right anterior shoulder pain that began about 3-4 weeks ago. She can't recall any specific event to onset her symptoms. She reports pain with all ranges of motion, specifically with weight bearing, lifting, and overhead reaching. She has been taking Tylenol and Ibuprofen for pain relief. She has also been using heat and ice nightly. She has had no imaging of the right shoulder and has received no formal treatment at this point. Social History Description Last Updated Caffeine use 07/31/2022 Last Documented On 4 8:07AM ; [facility], [facility] Exercising regularly 07/31/2022 Last Documented On 4 8:07AM ; [facility], [facility] Tobacco non-user 07/31/2022 Last Documented On 4 8:07AM ; [facility], [facility] No recent change in diet 07/31/2022 Last Documented On 4 8:07AM ; [facility], [facility] Not a current smoker. 07/31/2022 Last Documented On 4 8:07AM ; [facility], [facility] Not using alcohol 07/31/2022 Last Documented On 4 8:07AM ; [facility] Not using drugs 07/31/2022 Last Documented On 4 8:07AM ; [facility] Smoking Status Unknown Procedures and Surgical History Includes: Procedures from this encounter Procedures Code Diagnosis Performing Provider Service L ocation Service Date use of tobacco assessment performed 1000F Last Documented On 3 10:49AM ; [facility], [facility] review of medications documented 1160F Last Documented On 4 8:07AM ; [facility] an X-ray was performed [address]7931 Last Documented On 3 10:48AM ; [facility], [facility] Medical History Includes: Medical History addressed during this encounter Description Last Updated History of Anemia 07/31/2022 Last Documented On 4 8:07AM ; [facility] History of arthritis 07/31/2022 Last Documented On 4 8:07AM ; [facility], [facility] History of asthma 07/31/2022 Last Documented On 4 8:07AM ; [facility], [facility] History of Heartburn / Acid Reflux 07/31 Last Documented On 4 8:07AM ; [facility], [facility] History of History of Cancer 07/31/2022 Last Documented On 4 8:07AM ; [facility], [facility] History of Thyroid Disease 07/31/2022 Last Documented On 4 8:07AM ; [facility] Family History Includes: Family History addressed during this encounter Description Last Updated Diabetes mellitus 07/31/2022 Last Documented On 4 8:07AM ; [facility] Family history of cancer 07/31/2022 Last Documented On 4 8:07AM ; [facility] Family history of heart disease 07/31/19 23 Last Documented On 4 8:07AM ; [facility] Family history of rheumatoid arthritis 0 07/31/2022 Last Documented On 4 8:07AM ; [facility], [facility] Review of Systems Includes: Review of Systems from this encounter Systemic: Not feeling tired and no recent weight loss. Recent weight gain. Head: No headache and no sinus pain. Eyes: No vision problems and no Cataracts. Glasses/Contacts. No Glaucoma. Otolaryngeal: No hearing loss and no tinnitus. Cardiovascular: No chest pain or discomfort, no palpitations, no Hypertension, and no High Cholesterol. Pulmonary: No daytime asthma symptoms and no chronic cough. No wheezing. Gastrointestinal: No heartburn and no abdominal pain. No Indigestion, no Acid Reflux, no Peptic Ulcer, no GI Stomach Bleed, and no Ulcers. Endocrine: No hot flashes. Muscle weakness. No Diabetes, no Hypothyroid, and no Hyperthyroid. Hematologic: No easy bleeding, no tendency for easy bruising, and no Anemia. Musculoskeletal: Arthritis. No lower back pain. No soft tissue swelling. Pain localized to one or more joints. Neurological: No dizziness, no convulsions, and no numbness. Psychological: Anxiety. No emotional lability and no depression. Insomnia. Not crying for no reason. Skin: No dry skin. No Ulcers, no Scars, and no rash. Allergic and Immunologic: Complaint of seasonal allergic reaction. Reviewed on 07-31-2022 Mental Status Includes: Mental Status from this encounter Description Anxiety Functional Status Includes: Functional Status from this encounter No Functional Status Recorded Physical Exam Includes: Physical Exam from this encounter Allergies Includes: Active Allergies Substance Type Reaction Onset Date Resolved Date Statu s adhesive tape Allergy 07/31/2022 Activ e Last Documented On 3 10:55AM ; [facility] Encounters Encounter Provider Location Date Check-In Time Check-Out Time Diagnosis Physician Specified Duglas Birch MD [facility] 07/31/19 23 10:45AM 11:49AM Overweight Insurance Includes: Active Insurance Policies Plan Name Member ID Group # Subscriber Relationship Effect sparkle Dates 1 - [place] [id number] RILEY YARBROUGH 07/07/2022 - Unknown Clinical Notes Includes: Clinical Notes from this encounter * Progress note Date Encounter Last Documented by 07/31/2022 Physician Specified Last danielle ahmadi on 09/22/2023; 8:07 AM, Duglas Birch MD; [facility] Active Problems & Conditions - Joint Pain, Localized in the Right Shoulder Chief Complaint The Chief Complaint is: Right shoulder pain. Referred Here Referred by. History of Present Illness Medina Yarbrough is a 47 year old female. - Symptoms Giving away Symptoms better Ice has helped temporarily Symptoms worse lifting arm up, laying on shoulder, and lifting stuff. - Allergy list reviewed - Problem list reviewed - Medication list reviewed - Previous history of new onset pain Injury is not work related or an automotive accident - Patient pain level from 1-10: 7 - No previous treatment. 47-year-old female presents for initial evaluation of atraumatic right anterior shoulder pain that began about 3-4 weeks ago. She can't recall any specific event to onset her symptoms. She reports pain with all ranges of motion, specifically with weight bearing, lifting, and overhead reaching. She has been taking Tylenol and Ibuprofen for pain relief. She has also been using heat and ice nightly. She has had no imaging of the right shoulder and has received no formal treatment at this point. Current Medication - Levothyroxine Sodium 175 MCG Oral Tablet take as directed 30 days, 0 refills Past Medical/Surgical History Diagnoses: Asthma Anemia History of Cancer Heartburn / Acid Reflux Thyroid Disease. Arthritis Social History Not a current smoker. Current diet: No recent change in diet. Caffeine use: Caffeine use. Tobacco use: Tobacco non-user. Alcohol: Not using alcohol. Drug Use: Not using drugs. Habits: Exercising regularly. Allergies - adhesive tape Family History Cancer Heart disease Diabetes mellitus Rheumatoid arthritis Review Of Systems Systemic: Not feeling tired and no recent weight loss. Recent weight gain. Head: No headache and no sinus pain. Eyes: No vision problems and no Cataracts. Glasses/Contacts. No Glaucoma. Otolaryngeal: No hearing loss and no tinnitus. Cardiovascular: No chest pain or discomfort, no palpitations, no Hypertension, and no High Cholesterol. Pulmonary: No daytime asthma symptoms and no chronic cough. No wheezing. Gastrointestinal: No heartburn and no abdominal pain. No Indigestion, no Acid Reflux, no Peptic Ulcer, no GI Stomach Bleed, and no Ulcers. Endocrine: No hot flashes. Muscle weakness. No Diabetes, no Hypothyroid, and no Hyperthyroid. Hematologic: No easy bleeding, no tendency for easy bruising, and no Anemia. Musculoskeletal: Arthritis. No lower back pain. No soft tissue swelling. Pain localized to one or more joints. Neurological: No dizziness, no convulsions, and no numbness. Psychological: Anxiety. No emotional lability and no depression. Insomnia. Not crying for no reason. Skin: No dry skin. No Ulcers, no Scars, and no rash. Allergic and Immunologic: Complaint of seasonal allergic reaction. Reviewed on 07-31-2022 Physical Findings - Vitals taken 07/31/2022 11:12 am bb BP-Sitting R 145/95 mmHg Pulse Rate-Sitting 74 bpm Height 67 in Weight 254 lbs Body Mass Index 39.8 kg/m2 Body Surface Area 2.2 m2 RIGHT SHOULDER Range of Motion: Abduction [100] degrees Forward flexion [100] degrees Internal rotation to the level of the glute External rotation to 40 degrees Passive Range of Motion: limited by pain Stability: no anterior, no posterior, no inferior laxity Strength: Abduction/Forward flexion [5/5] with pain, Internal rotation [5/5] with pain, External rotation [5/5] with pain. Positive Hawkin's Positive Neer's Positive Tejeda's Positive Speeds Pain with resisted abduction. Bicipital Groove is significantly tender. AC joint is non-tender. Tests RIGHT SHOULDER X-RAYS (4 VIEWS): no significant glenohumeral or AC joint arthritis; no obvious fractures or dislocations. Assessment - Overweight Previous Tests Imaging: X-Ray: An X-ray was performed. Counseling/Education - Lose weight Plan StartCited - Other Therapy/Physical Therapy: Shoulder Instructions: See PT order attached Meloxicam 7.5 MG tablet once a day, 30 days, 0 refills EndCited Medina presents with a physical exam supportive of right proximal biceps tendinopathy and rotator cuff impingement. We obtained x-rays and reviewed the images with the patient. We discussed the risks and benefits of a subacromial steroid injection and she agreed to proceed. We will provide her with a prescription for Meloxicam 7.5mg x 1 tablet daily and a physical therapy order for biceps tendinopathy and rotator cuff impingement protocol. She can modify her activities as tolerated and we will see her back for a clinical re-evaluation in 6 weeks. RIGHT SHOULDER: The risks and benefits of a subacromial injection were discussed. I answered all of the patient's questions and they verbally consented to the procedure. The skin of the posterior shoulder over the injection site was prepped with isopropyl alcohol and allowed to dry. Utilizing a sterile needle, I injected 2 cc of betamethasone and 8 cc of 1% lidocaine into the subacromial bursa. The needle was withdrawn and the injection site was dressed with a sterile Band-Aid. The patient tolerated the procedure well without any apparent complication. Post-injection instructions were discussed. Notes Transcribed by Anastasiya lFetcher, acting as a scribe for Dr. Birch. This dictation was done with voice recognition software and may contain errors and omissions. Practice Management Use of tobacco assessment performed Review of medications documented. Care Team - Esme Samano APRN
--- OUTSIDE RECORDS SUMMARY | 2025-04-07 16:07 | XMS_ITS | Clinical Summary ---
Author Organization [facility] Address [address] [place] [address] Care Team Providers Care Oyster Unloader Name Role Phone Esme Samano ORE WASHER Primary Care Provider [phone] Allergies Active Allergy Reactions Criticality Noted Date Comments Penicillins Shortness of breath,Rash,Unknown - Patient states they do not know rxn details High 09/05/2014 Sulfa Drugs Shortness of breath,Rash,Unknown - Patient states they do not know rxn details High 09/05/2014 Wound Dressing Adhesive Rash Low 09/06/2014 blisters Medications cholecalciferol (Vitamin D-3) 1.25 MG (76893 UT) capsule TAKE 2 CAPSULE Weekly 11/06/2020 [...] Signed by Chuck Castro MD on 10/04/2021 Obesity, Class II, BMI 35-39.9 04/03/2017 Irritable bowel syndrome 04/03/2017 Glucose intolerance (impaired glucose tolerance) 04/03/2017 Chronic GERD 04/03/2017 Anxiety disorder 04/03/2017 Sleep disorder breathing 11/13/2015 Resolved Problems Problem Noted Date Diagnosed Date Resolved Date Osteoarthritis 04/03/2017 03/27/2025 Allergic rhinitis 04/03/2017 10/24/2022 Immunizations Immunization Administration [...] 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 Not on file [...] C Screening 1975 [facility]-/Child/Adol SDOH Screenings 1975 [id number] Vaccine (#1) 02/15/1980 [facility]-Obesity Intervention 1981 [facility]- SDOH Screenings 1993 [facility]-Adult SDOH Screenings 1993 [facility]-Hepatitis B Vaccines (1 of 3 - 19+ 3-dose series) 1994 [facility]-Pneumococcal Vaccine: 50 + Years (1 of 2 - PCV) 1994 [facility]-Zoster Vaccines (1 of 2) 1994 CT Colonography 02/15/2020 Colonoscopy 02/15/2020 FIT-DNA 02/15/2020 FIT 02/15/2020 FOBT 02/15/2020 Sigmoidoscopy 02/15/2020 [facility]-Colorectal Cancer Screening 02/15/2020 [facility]-Influenza Vaccine (#1) 2025 04/09/2018 [facility]-Breast Cancer Screening 04/08/202609/2023, 04/07/2023 [facility]-DTaP,Tdap,and Td Vaccine s (2 - Td [...] on patient's age to complete this topic Procedures Procedure Name Priority Date/Time Associated Diagnosis Comments MAMMOGRAPHY BREAST DIAGNOSTIC TOMOSYNTHESIS BILATERAL Routine 04/08/2024 1:24 PM EDT Abnormal mammogram of left breast from Last 3 Months or Most Recently Relevant to Health Maintenance Results * Mammography Breast Diagnostic Tomosynthesis Bilateral (04/08/2024 1:24 PM EDT) Anatomical Region Laterality Modality Breast Bilateral Mammography Impressions 04/08/2024 3:39 PM EDT Right Breast BI-RADS Code: BI-RADS 1, Negative. Left Breast BI-RADS Code: BI-RADS 2, Benign finding. RECOMMENDATIONS: Right Breast Recommendations: Routine Screening Mammogram in 1 Year Left Breast Recommendations: Routine Screening Mammogram in 1 Year CRITICAL RESULT: No. COMMUNICATION: The results and recommendations were discussed with the patient and a printed lay language version of the imaging report was given to the patient at the time of the visit. The mammogram was read with the assistance of CAD and tomosynthesis. Drafted by Sg Wilks MD on 04/08/2024 2:49 PM Final report signed by Sg Wilks MD on 04/08/2024 3:39 PM Narrative 04/08/2024 3:39 PM EDT CLINICAL INDICATION: BI-RADS 3 follow-up at 24 months for 2 findings: Finding 1: Left breast 7:00 7 cm from the nipple 10 mm mass; Finding 2: Left breast 11:00 10 cm from the nipple 6 mm mass. TECHNIQUE: Bilateral diagnostic mammogram was performed. Computer assisted detection was used in the interpretation of this study. Tomosynthesis was used in the interpretation of this study. Multiplanar, osorio scale directed ultrasound of the left breast with limited Doppler vascular ultrasound was performed. Elastography was not performed. COMPARISON: Mammogram and ultrasound April 07, 2023, October 03, 2022, April 04, 2022, mammogram February 25, 2022, August 11, 2019, April 23, 2018 Bilateral Breast Density: The breast tissue is heterogeneously dense, which may obscure small masses. FINDINGS: Mammogram Findings: Right breast no new or suspicious finding. Left breast stable biopsy tissue markers. No new or suspicious finding. Ultrasound performed to further evaluate previous BI-RADS 3 findings. Left Breast Ultrasound Findings: Finding 1: Left breast 7:00 7 cm from the nipple 9 x 3 x 9 mm oval hypoechoic avascular mass. This measures 11 x 4 x 12 mm on April 04, 2022. Stable for 2 years. BI-RADS 2. Finding 2: Left breast 11:00 10 cm from the nipple 6 x 3 x 5 mm oval mass, possible clustered microcysts, stable for 2 years. BI-RADS 2. Finding 3: Incidental left breast 7:00 7 cm from the nipple 5 x 2 x 4 mm oval circumscribed avascular hypoechoic mass, likely complicated cyst. Procedure Note Sg Wilks MD - 04/08/2024 CLINICAL INDICATION: BI-RADS 3 follow-up at 24 months for 2 findings: Finding 1: Left breast 7:00 7 cm from the nipple 10 mm mass; Finding 2: Left breast 11:00 10 cm from the nipple 6 mm mass. TECHNIQUE: Bilateral diagnostic mammogram was performed. Computer assisted detection was used in the interpretation of this study.Tomosynthesis was used in the interpretation of this study. Multiplanar, osorio scale directed ultrasound of the left breast withlimited Doppler vascular ultrasound was performed. Elastography was notperformed. COMPARISON: Mammogram and ultrasound April 07, 2023, October 03, 2022, March, mammogram February 25, 2022, August 11, 2019, April 23, 2018 Bilateral Breast Density: The breast tissue is heterogeneously dense,which may obscure small masses. FINDINGS: Mammogram Findings: Right breast no new or suspicious finding. Left breast stable biopsy tissue markers. No new or suspicious finding.Ultrasound performed to further evaluate previous BI-RADS 3 findings. Left Breast Ultrasound Findings: Finding 1: Left breast 7:00 7 cm from the nipple 9 x 3 x 9 mm ovalhypoechoic avascular mass. This measures 11 x 4 x 12 mm on March. Stable for 2 years. BI-RADS 2. Finding 2: Left breast 11:00 10 cm from the nipple 6 x 3 x 5 mm oval mass,possible clustered microcysts, stable for 2 years. BI-RADS 2. Finding 3: Incidental left breast 7:00 7 cm from the nipple 5 x 2 x 4 mmoval circumscribed avascular hypoechoic mass, likely complicated cyst. IMPRESSION: Right Breast BI-RADS Code: BI-RADS 1, Negative. Left Breast BI-RADS Code: BI-RADS 2, Benign finding. RECOMMENDATIONS: Right Breast Recommendations: Routine Screening Mammogram in 1 Year Left Breast Recommendations: Routine Screening Mammogram in 1 Year CRITICAL RESULT: No. COMMUNICATION: The results and recommendations were discussed with the patient and aprinted lay language version of the imaging report was given to thepatient at the time of the visit. The mammogram was read with theassistance of CAD and tomosynthesis. Drafted by Sg Wilks MD on 04/08/2024 2:49 PM Final report signed by Sg Wilks MD on 04/08/2024 3:39 PM Chuck Castro MD IMG BI PROCEDURES Final Result from Last 3 Months or Most Recently Relevant to Health Maintenance Insurance Care Teams Oyster Unloader Relationship Specialty Start Date End Date Esme Samano APRN [address] [place] [address] PCP - General 10/04/21
--- NOTE | 2025-04-07 16:08 | MR_ITS ---
FINAL REPORT CLINICAL HISTORY: LUMBAGO W SCIATICA RT SIDE FINDINGS: Multiplanar MR imaging of the lumbar spine was performed without contrast. On the sagittal T2-weighted images, abnormal decreased signal seen at L5-S1. The vertebrae are of normal height. The vertebral alignment is normal. L1-2: There is no significant canal stenosis or neural foraminal narrowing. L2-3: There is no significant canal stenosis or neural foraminal narrowing. L3-4: There is no significant canal stenosis or neural foraminal narrowing. L4-5: Mild facet hypertrophy. There is no significant canal stenosis or neural foraminal narrowing. L5-S1: Mild diffuse disc bulge with mild bilateral facet hypertrophy. There is no significant canal stenosis or neural foraminal narrowing. IMPRESSION: Degenerative changes at L4-5 and L5-S1. Reviewed, Interpreted and Dictated by Ryne Bolanos MD Transcribed by Kalie Parmar Authenticated and [facility]
== END 2025-04-07 23:59 | disposition home or self-care (01) ==
LOC: RAD 16:05
PROVIDERS: PCP Nurse Practitioner Family; Visit Provider Nurse Practitioner Family
DX: M47.26 Other spondylosis with radiculopathy, lumbar region (principal); M47.27 Other spondylosis with radiculopathy, lumbosacral region
CPT/HCPCS: 72148